=== PATIENT | female | born 1960 | race Caucasian/White ===

== ENCOUNTER 2021-05-24 05:07 | Inpatient (IN) | payer OTHER ==
[2021-05-24 08:32] LABS: VENOUS BASE EXCESS 2.5 mmol/L (-2-2); VENOUS O2 SATURATION 47.3 % (70-80); VENOUS PH 7.256 (7.310-7.410)
[2021-05-24 08:35] LABS: VENOUS PCO2 74.9 mmHg (38-52)
[2021-05-24 08:48] LABS: BASO % 0.4 % (0-2.0); EOS % 0.1 % (0-4.5); HEMOGLOBIN 11.4 GM/dL (10.7-15.3); LYMPH % 4.1 % (8-40); MCH 30.8 pg (25.7-33.7); MCHC 32.7 g/dl (32.0-36.0); MEAN CELL VOLUME 94.4 fl (80-96); MEAN PLT VOLUME 10.8 fl (7.5-11.1); MONO % 5.8 % (3.8-10.2); NEUT % 89.6 % (42.8-82.8); PLATELET COUNT 170 10^3/uL (134-434); RBC 3.71 M/mm3 (3.60-5.2); RDW 14.6 % (11.6-15.6); WHITE BLOOD COUNT 9.7 K/mm3 (4.0-10.0)
[2021-05-24 08:50] LABS: INR 1.07 (0.83-1.09)
[2021-05-24 08:53] LABS: ACTIVATED PTT 29.9 SECONDS (25.2-36.5)
[2021-05-24 08:57] LABS: CHLORIDE 102 mmol/L (98-107); SODIUM 138 mmol/L (136-145)
[2021-05-24 09:01] LABS: ANION GAP 3 MMOL/L (8-16); BLOOD UREA NITROGEN 16.5 mg/dL (7-18); CALCIUM 8.5 mg/dL (8.5-10.1); CO2 33 mmol/L (21-32); GLUCOSE,RANDOM 211 mg/dL (74-106); LIPASE 36 U/L (73-393); MAGNESIUM 1.9 mg/dL (1.8-2.4)
[2021-05-24 09:03] LABS: BILIRUBIN,DIRECT 0.1 mg/dL (0.0-0.2); SGPT/ALT 97 U/L (13-61)
[2021-05-24 09:04] LABS: CREATININE 0.4 mg/dL (0.55-1.3); PHOSPHOROUS 3.3 mg/dL (2.5-4.9); SGOT/AST 95 U/L (15-37)
[2021-05-24 09:05] LABS: TOT PROT 6.6 g/dl (6.4-8.2)
[2021-05-24 09:06] LABS: BILIRUBIN,TOTAL 0.7 mg/dL (0.2-1)
[2021-05-24 09:07] LABS: ALK PHOS 113 U/L (45-117); N-TERMINAL BNP 805.9 pg/ml (5-125)
[2021-05-24 09:11] LABS: LDH 436 U/L (84-246)
[2021-05-24] MEDS ORDERED: FUROSEMIDE 40 MG/4 ML INJECTABLE VIAL IVPUSH ONE (11:14)
[2021-05-24] MEDS ORDERED: FUROSEMIDE 40 MG/4 ML INJECTABLE VIAL ONE (11:56)
[2021-05-24] MEDS ORDERED: INSULIN SLIDING SCALE (NOVOLOG) 1 VIAL SQ SCH (16:30)
[2021-05-24] MEDS: INSULIN SLIDING SCALE (NOVOLOG) 1 VIAL SQ SCH ×2 (17:54→22:46)
[2021-05-24 23:24] VITALS: BMI 33.9
[2021-05-25] MEDS: INSULIN SLIDING SCALE (NOVOLOG) 1 VIAL SQ SCH ×4 (06:21→22:32)
[2021-05-25 07:28] LABS: BASO % 0.4 % (0-2.0); EOS % 1.4 % (0-4.5); HEMATOCRIT 32.5 % (32.4-45.2); HEMOGLOBIN 10.9 GM/dL (10.7-15.3); LYMPH % 13.4 % (8-40); MCH 30.7 pg (25.7-33.7); MCHC 33.4 g/dl (32.0-36.0); MEAN CELL VOLUME 91.8 fl (80-96); MEAN PLT VOLUME 9.7 fl (7.5-11.1); NEUT % 71.8 % (42.8-82.8); PLATELET COUNT 152 10^3/uL (134-434); RBC 3.54 M/mm3 (3.60-5.2); RDW 14.6 % (11.6-15.6)
[2021-05-25 07:44] LABS: CHLORIDE 105 mmol/L (98-107); SODIUM 142 mmol/L (136-145)
[2021-05-25 07:54] LABS: CALCIUM 8.6 mg/dL (8.5-10.1)
[2021-05-25 07:55] LABS: ALBUMIN 2.7 g/dl (3.4-5.0); ANION GAP 5 MMOL/L (8-16); CO2 32 mmol/L (21-32); GLUCOSE,RANDOM 154 mg/dL (74-106)
[2021-05-25 07:56] LABS: MAGNESIUM 1.9 mg/dL (1.8-2.4)
[2021-05-25 07:57] LABS: PHOSPHOROUS 2.7 mg/dL (2.5-4.9); SGPT/ALT 62 U/L (13-61)
[2021-05-25 07:59] LABS: ALK PHOS 87 U/L (45-117)
[2021-05-25 08:00] LABS: CREATININE 0.4 mg/dL (0.55-1.3)
[2021-05-25 08:01] LABS: BILIRUBIN,TOTAL 0.6 mg/dL (0.2-1)
[2021-05-25 08:02] LABS: SGOT/AST 33 U/L (15-37)
[2021-05-25 08:04] LABS: CHOLESTEROL 130 mg/dL (50-200); HDL CHOLESTEROL 50 mg/dL (40-60); TRIGLYCERIDES 55 mg/dL (0-150)
[2021-05-25 08:05] LABS: LDL CHOLESTEROL (ONLY SJRH) 64 mg/dL (5-100)
[2021-05-25] MEDS: ASPIRIN 81 MG CHEWABLE TABLETS PO SCH (09:02)
[2021-05-25] MEDS: LISINOPRIL 10 MG TABLET PO SCH (09:02)
[2021-05-25] MEDS ORDERED: REGADENOSON 0.4 MG/5 ML PRE-FILLED SYRINGE IVPUSH ONE ×2 (09:44→11:30)
[2021-05-25] MEDS ORDERED: FUROSEMIDE 40 MG/4 ML INJECTABLE VIAL IVPUSH SCH (10:00)
[2021-05-25] MEDS: ENOXAPARIN NA (PORCINE) 40 MG/0.4 ML DISP.SYRIN SQ SCH (12:29)
[2021-05-26 02:24] VITALS: TEMP 98.2
[2021-05-26] MEDS: INSULIN SLIDING SCALE (NOVOLOG) 1 VIAL SQ SCH (07:31)
[2021-05-26 08:18] LABS: BLOOD UREA NITROGEN 20.8 mg/dL (7-18); MAGNESIUM 2.1 mg/dL (1.8-2.4)
[2021-05-26 08:21] LABS: CREATININE 0.4 mg/dL (0.55-1.3)
[2021-05-26] MEDS: LISINOPRIL 10 MG TABLET PO SCH (10:03)
[2021-05-26] MEDS: ASPIRIN 81 MG CHEWABLE TABLETS PO SCH (10:03)
[2021-05-26] MEDS: ENOXAPARIN NA (PORCINE) 40 MG/0.4 ML DISP.SYRIN SQ SCH (11:06)
[2021-05-26 11:22] VITALS: BP 130/93; PULSE 87
== END 2021-05-26 13:44 | disposition short-term general hospital (02) | DRG 302 ==
LOC: JER 05:07 → JERBED 11:26 → J4W 21:51
PROVIDERS: ADMIT Internal Medicine
DX: I25.6 Silent myocardial ischemia (principal); J96.02 Acute respiratory failure with hypercapnia; E87.2 Acidosis; I25.10 Atherosclerotic heart disease of native coronary artery without angina pectoris; I11.0 Hypertensive heart disease with heart failure; I50.9 Heart failure, unspecified; E87.5 Hyperkalemia; E11.9 Type 2 diabetes mellitus without complications; Z85.038 Personal history of other malignant neoplasm of large intestine; E78.5 Hyperlipidemia, unspecified; E66.9 Obesity, unspecified; Z68.34 Body mass index [BMI] 34.0-34.9, adult; R74.01 Elevation of levels of liver transaminase levels
CPT/HCPCS: 36415; 71045-TC-FY; 78452-TC; 80048; 80053; 80061; 82248; 82550; 82803; 82962; 83036; 83605; 83615; 83690; 83735; 83880; 84100; 84443; 84484; 85025; 85379; 85610; 85730; 86140; 87804; 93005; 93010; 93017; 93306-TC; 93970-TC; 99285-25; A9502; C9803; J2785; U0003; U0005

== ENCOUNTER 2021-06-16 16:00 | Inpatient (IN) | payer OTHER ==
[2021-06-16] MEDS ORDERED: PANTOPRAZOLE SODIUM 40 MG VIAL IVPUSH ONE (18:21)
[2021-06-16] MEDS ORDERED: PANTOPRAZOLE SODIUM 40 MG VIAL ONE (18:54)
[2021-06-16 19:13] LABS: EOS % 1.7 % (0-4.5); HEMATOCRIT 33.5 % (32.4-45.2); MCH 29.2 pg (25.7-33.7); MCHC 32.7 g/dl (32.0-36.0); MEAN CELL VOLUME 89.3 fl (80-96); MEAN PLT VOLUME 10.3 fl (7.5-11.1); MONO % 7.3 % (3.8-10.2); PLATELET COUNT 246 10^3/uL (134-434); RBC 3.76 M/mm3 (3.60-5.2); RDW 14.2 % (11.6-15.6); WHITE BLOOD COUNT 8.8 K/mm3 (4.0-10.0)
[2021-06-16 19:21] LABS: CHLORIDE 104 mmol/L (98-107); SODIUM 139 mmol/L (136-145)
[2021-06-16 19:22] LABS: INR 1.07 (0.83-1.09); PROTHROMBIN TIME (PATIENT) 12.3 SEC (9.7-13.0)
[2021-06-16 19:24] LABS: ALBUMIN 3.4 g/dl (3.4-5.0); ANION GAP 8 MMOL/L (8-16); BLOOD UREA NITROGEN 48.8 mg/dL (7-18); CALCIUM 9.2 mg/dL (8.5-10.1); CO2 28 mmol/L (21-32); GLUCOSE,RANDOM 137 mg/dL (74-106)
[2021-06-16 19:25] LABS: ACTIVATED PTT 29.1 SECONDS (25.2-36.5)
[2021-06-16 19:27] LABS: CREATININE 0.5 mg/dL (0.55-1.3); SGOT/AST 20 U/L (15-37)
[2021-06-16 19:28] LABS: SGPT/ALT 27 U/L (13-61)
[2021-06-16 19:29] LABS: BILIRUBIN,TOTAL 0.4 mg/dL (0.2-1); TOT PROT 6.7 g/dl (6.4-8.2)
[2021-06-16 19:30] LABS: ALK PHOS 101 U/L (45-117)
[2021-06-16] MEDS ORDERED: SODIUM CHLORIDE 1,000 ML IV SCH (23:30)
[2021-06-17] MEDS ORDERED: SODIUM CHLORIDE 1,000 ML IV SCH ×2 (00:03→12:15)
[2021-06-17 09:03] LABS: HEMOGLOBIN 8.8 GM/dL (10.7-15.3); LYMPH % 23.2 % (8-40); MCH 29.1 pg (25.7-33.7); MCHC 32.6 g/dl (32.0-36.0); MEAN CELL VOLUME 89.4 fl (80-96); MEAN PLT VOLUME 10.7 fl (7.5-11.1); MONO % 7.5 % (3.8-10.2); NEUT % 65.9 % (42.8-82.8); PLATELET COUNT 191 10^3/uL (134-434); RBC 3.03 M/mm3 (3.60-5.2); RDW 14.1 % (11.6-15.6)
[2021-06-17 09:04] LABS: EOS % 2.4 % (0-4.5)
[2021-06-17 09:12] LABS: INR 1.11 (0.83-1.09); PROTHROMBIN TIME (PATIENT) 12.8 SEC (9.7-13.0)
[2021-06-17 09:14] LABS: ACTIVATED PTT 26.1 SECONDS (25.2-36.5)
[2021-06-17 09:27] LABS: BLOOD UREA NITROGEN 44.8 mg/dL (7-18); MAGNESIUM 1.6 mg/dL (1.8-2.4)
[2021-06-17 09:29] LABS: CREATININE 0.5 mg/dL (0.55-1.3)
[2021-06-17 09:30] LABS: PHOSPHOROUS 3.5 mg/dL (2.5-4.9)
[2021-06-17 09:31] LABS: BILIRUBIN,TOTAL 0.4 mg/dL (0.2-1); TOT PROT 5.9 g/dl (6.4-8.2)
[2021-06-17] MEDS ORDERED: LISINOPRIL 20 MG TABLET PO SCH (10:00)
[2021-06-17] MEDS ORDERED: PANTOPRAZOLE SODIUM 80 MG in SODIUM CHLORIDE 100 ML IVPB SCH (10:00)
[2021-06-17] MEDS ORDERED: CLOPIDOGREL BISULFATE 75 MG TABLET (FP) PO SCH (10:00)
[2021-06-17] MEDS ORDERED: PANTOPRAZOLE SODIUM 160 MG in SODIUM CHLORIDE 290 ML IVPB SCH (10:45)
[2021-06-17] MEDS ORDERED: LISINOPRIL 20 MG TABLET ONE (11:19)
[2021-06-17] MEDS ORDERED: MAGNESIUM SULF 50% (8.12 MEQ/2 ML-1 GM VIAL) IVPB ONE (12:21)
[2021-06-17] MEDS ORDERED: MAGNESIUM SULF 50% (8.12 MEQ/2 ML-1 GM VIAL) ONE (12:30)
[2021-06-17] MEDS ORDERED: MAGNESIUM 1GM/D5W - 1 GM/100 ML IVPB IVPB ONE (12:31)
[2021-06-17] MEDS ORDERED: ETOMIDATE 20 MG/10 ML AMPUL IVPUSH ONE (12:38)
[2021-06-17] MEDS: PANTOPRAZOLE SODIUM 160 MG in SODIUM CHLORIDE 290 ML IVPB SCH (12:41)
[2021-06-17] MEDS: DEXTROSE 5%-0.45% SALINE 1,000 ML IV SCH (16:08)
[2021-06-17 16:46] VITALS: BMI 31.1
[2021-06-17 17:39] LABS: EPI CELLS 3 /uL (0-25.1); HYALINE CASTS 0 /uL (0-3.1); PH,URINE 5.5 (5.0-8.0); URINE APPEARANCE CLEAR; URINE BACTERIA 14 /uL (0-1359); URINE BILIRUBIN NEGATIVE (NEGATIVE); URINE COLOR YELLOW; URINE GLUCOSE (UA) NEGATIVE (NEGATIVE); URINE KETONE NEGATIVE (NEGATIVE); URINE LEUK ESTERASE 1+ (NEGATIVE); URINE NITRITE NEGATIVE (NEGATIVE); URINE PROTEIN NEGATIVE (NEGATIVE); URINE RBC 1 /uL (0-23.9); URINE UROBILINOGEN 0.2 mg/dL (0.2-1.0); URINE WBC 15 /uL (0-25.8)
[2021-06-17] MEDS: INSULIN SLIDING SCALE (NOVOLOG) 1 VIAL SQ SCH (17:57)
[2021-06-17] MEDS: ATORVASTATIN CA 80 MG TABLET (FP) PO SCH (21:51)
[2021-06-18] MEDS: INSULIN SLIDING SCALE (NOVOLOG) 1 VIAL SQ SCH ×3 (06:05→16:47)
[2021-06-18 10:42] LABS: BASO % 0.9 % (0-2.0); EOS % 2.7 % (0-4.5); HEMATOCRIT 25.7 % (32.4-45.2); HEMOGLOBIN 8.4 GM/dL (10.7-15.3); LYMPH % 14.7 % (8-40); MCH 29.4 pg (25.7-33.7); MCHC 32.8 g/dl (32.0-36.0); MEAN CELL VOLUME 89.6 fl (80-96); MEAN PLT VOLUME 10.6 fl (7.5-11.1); MONO % 8.2 % (3.8-10.2); NEUT % 73.5 % (42.8-82.8); PLATELET COUNT 178 10^3/uL (134-434); RBC 2.87 M/mm3 (3.60-5.2); RDW 14.3 % (11.6-15.6); WHITE BLOOD COUNT 7.9 K/mm3 (4.0-10.0)
[2021-06-18] MEDS: PANTOPRAZOLE SODIUM 160 MG in SODIUM CHLORIDE 290 ML IVPB SCH (10:43)
[2021-06-18] MEDS: ASPIRIN 81 MG CHEWABLE TABLETS PO SCH (10:46)
[2021-06-18] MEDS: CLOPIDOGREL BISULFATE 75 MG TABLET (FP) PO SCH (10:46)
[2021-06-18] MEDS: DEXTROSE 5%-0.45% SALINE 1,000 ML IV SCH ×2 (10:46→16:47)
[2021-06-18 11:00] LABS: CHLORIDE 106 mmol/L (98-107); SODIUM 142 mmol/L (136-145)
[2021-06-18 11:04] LABS: CALCIUM 8.6 mg/dL (8.5-10.1)
[2021-06-18 11:05] LABS: ANION GAP 4 MMOL/L (8-16); CO2 32 mmol/L (21-32); GLUCOSE,RANDOM 173 mg/dL (74-106)
[2021-06-18 11:08] LABS: CREATININE 0.5 mg/dL (0.55-1.3)
[2021-06-18 11:13] LABS: BLOOD UREA NITROGEN 17.4 mg/dL (7-18)
[2021-06-18 13:22] LABS: HEMATOCRIT 24.9 % (32.4-45.2); MCH 28.9 pg (25.7-33.7); MCHC 32.3 g/dl (32.0-36.0); MEAN CELL VOLUME 89.6 fl (80-96); MEAN PLT VOLUME 10.7 fl (7.5-11.1); PLATELET COUNT 164 10^3/uL (134-434); RBC 2.77 M/mm3 (3.60-5.2); RDW 14.1 % (11.6-15.6); WHITE BLOOD COUNT 6.9 K/mm3 (4.0-10.0)
[2021-06-18] MEDS: ATORVASTATIN CA 80 MG TABLET (FP) PO SCH (21:23)
[2021-06-19] MEDS: PANTOPRAZOLE SODIUM 160 MG in SODIUM CHLORIDE 290 ML IVPB SCH ×3 (04:38→23:12)
[2021-06-19] MEDS: INSULIN SLIDING SCALE (NOVOLOG) 1 VIAL SQ SCH ×3 (06:11→18:22)
[2021-06-19] MEDS: ASPIRIN 81 MG CHEWABLE TABLETS PO SCH (10:49)
[2021-06-19] MEDS: CLOPIDOGREL BISULFATE 75 MG TABLET (FP) PO SCH (10:49)
[2021-06-19 11:33] LABS: BASO % 0.9 % (0-2.0); EOS % 2.7 % (0-4.5); HEMATOCRIT 25.5 % (32.4-45.2); HEMOGLOBIN 8.2 GM/dL (10.7-15.3); LYMPH % 22.7 % (8-40); MCHC 32.2 g/dl (32.0-36.0); MEAN CELL VOLUME 90.1 fl (80-96); MONO % 10.1 % (3.8-10.2); NEUT % 63.6 % (42.8-82.8); PLATELET COUNT 148 10^3/uL (134-434); RBC 2.83 M/mm3 (3.60-5.2); RDW 14.2 % (11.6-15.6); WHITE BLOOD COUNT 5.5 K/mm3 (4.0-10.0)
[2021-06-19 12:15] LABS: CALCIUM 8.9 mg/dL (8.5-10.1)
[2021-06-19 12:16] LABS: BLOOD UREA NITROGEN 13.8 mg/dL (7-18)
[2021-06-19 12:19] LABS: CREATININE 0.4 mg/dL (0.55-1.3)
[2021-06-19 12:20] LABS: BILIRUBIN,TOTAL 0.5 mg/dL (0.2-1); TOT PROT 5.8 g/dl (6.4-8.2)
[2021-06-19] MEDS: LISINOPRIL 10 MG TABLET PO SCH (14:04)
[2021-06-19] MEDS ORDERED: MAGNESIUM SULF 50% (8.12 MEQ/2 ML-1 GM VIAL) IVPB ONE (15:51)
[2021-06-19] MEDS ORDERED: MAGNESIUM 1GM/D5W 100ML - 100 ML IVPB IVPB ONE (17:45)
[2021-06-19] MEDS: DEXTROSE 5%-0.45% SALINE 1,000 ML IV SCH (17:57)
[2021-06-19] MEDS: ATORVASTATIN CA 80 MG TABLET (FP) PO SCH (21:40)
[2021-06-20] MEDS: DEXTROSE 5%-0.45% SALINE 1,000 ML IV SCH ×3 (00:26→18:39)
[2021-06-20] MEDS: INSULIN SLIDING SCALE (NOVOLOG) 1 VIAL SQ SCH ×3 (06:41→16:49)
[2021-06-20 10:34] LABS: EOS % 5.9 % (0-4.5); HEMATOCRIT 25.6 % (32.4-45.2); HEMOGLOBIN 8.2 GM/dL (10.7-15.3); LYMPH % 18.9 % (8-40); MCH 29.2 pg (25.7-33.7); MCHC 32.1 g/dl (32.0-36.0); MEAN CELL VOLUME 90.8 fl (80-96); MEAN PLT VOLUME 10.9 fl (7.5-11.1); MONO % 10.5 % (3.8-10.2); NEUT % 63.7 % (42.8-82.8); PLATELET COUNT 137 10^3/uL (134-434); RBC 2.82 M/mm3 (3.60-5.2); RDW 13.9 % (11.6-15.6); WHITE BLOOD COUNT 4.8 K/mm3 (4.0-10.0)
[2021-06-20] MEDS: LISINOPRIL 10 MG TABLET PO SCH (10:59)
[2021-06-20] MEDS: CLOPIDOGREL BISULFATE 75 MG TABLET (FP) PO SCH (10:59)
[2021-06-20] MEDS: ASPIRIN 81 MG CHEWABLE TABLETS PO SCH (11:00)
[2021-06-20 11:14] LABS: BLOOD UREA NITROGEN 9.3 mg/dL (7-18); CALCIUM 8.5 mg/dL (8.5-10.1); MAGNESIUM 1.7 mg/dL (1.8-2.4)
[2021-06-20 11:17] LABS: CREATININE 0.5 mg/dL (0.55-1.3); PHOSPHOROUS 2.8 mg/dL (2.5-4.9)
[2021-06-20] MEDS ORDERED: MAGNESIUM SULF 50% (8.12 MEQ/2 ML-1 GM VIAL) IVPB ONE (11:28)
[2021-06-20] MEDS: PANTOPRAZOLE SODIUM 160 MG in SODIUM CHLORIDE 290 ML IVPB SCH (18:51)
[2021-06-20] MEDS: ATORVASTATIN CA 80 MG TABLET (FP) PO SCH (21:32)
[2021-06-21] MEDS: INSULIN SLIDING SCALE (NOVOLOG) 1 VIAL SQ SCH ×3 (06:47→17:00)
[2021-06-21 09:46] LABS: BASO % 0.9 % (0-2.0); EOS % 4.7 % (0-4.5); HEMATOCRIT 24.3 % (32.4-45.2); HEMOGLOBIN 7.8 GM/dL (10.7-15.3); LYMPH % 18.2 % (8-40); MCH 29.4 pg (25.7-33.7); MCHC 32.2 g/dl (32.0-36.0); MEAN CELL VOLUME 91.3 fl (80-96); MEAN PLT VOLUME 11.5 fl (7.5-11.1); MONO % 8.8 % (3.8-10.2); NEUT % 67.4 % (42.8-82.8); PLATELET COUNT 125 10^3/uL (134-434); RBC 2.66 M/mm3 (3.60-5.2); RDW 14.6 % (11.6-15.6)
[2021-06-21 10:21] LABS: CALCIUM 8.4 mg/dL (8.5-10.1)
[2021-06-21 10:22] LABS: ALBUMIN 2.7 g/dl (3.4-5.0); BLOOD UREA NITROGEN 6.6 mg/dL (7-18); MAGNESIUM 1.8 mg/dL (1.8-2.4)
[2021-06-21 10:25] LABS: BILIRUBIN,TOTAL 0.6 mg/dL (0.2-1); CREATININE 0.5 mg/dL (0.55-1.3); TOT PROT 5.5 g/dl (6.4-8.2)
[2021-06-21] MEDS: LISINOPRIL 10 MG TABLET PO SCH (11:02)
[2021-06-21] MEDS: PANTOPRAZOLE 40 MG TABLET PO SCH (11:02)
[2021-06-21] MEDS: CLOPIDOGREL BISULFATE 75 MG TABLET (FP) PO SCH (11:02)
[2021-06-21] MEDS: ASPIRIN 81 MG CHEWABLE TABLETS PO SCH (11:02)
[2021-06-21] MEDS ORDERED: IRON SUCROSE INJECTION 200 MG in SODIUM CHLORIDE 90 ML IVPB ONE (14:04)
[2021-06-21] MEDS: SODIUM CHLORIDE 1,000 ML IV SCH (14:46)
[2021-06-21] MEDS: ATORVASTATIN CA 80 MG TABLET (FP) PO SCH (21:58)
[2021-06-21] MEDS ORDERED: ACETAMINOPHEN 325 MG TABLET (FP) PO ONE (22:27)
[2021-06-22] MEDS: CLOPIDOGREL BISULFATE 75 MG TABLET (FP) PO SCH (10:19)
[2021-06-22] MEDS: PANTOPRAZOLE 40 MG TABLET PO SCH (10:19)
[2021-06-22] MEDS: ASPIRIN 81 MG CHEWABLE TABLETS PO SCH (10:19)
[2021-06-22 11:52] LABS: BASO % 0.6 % (0-2.0); EOS % 3.6 % (0-4.5); HEMATOCRIT 25.9 % (32.4-45.2); HEMOGLOBIN 8.1 GM/dL (10.7-15.3); LYMPH % 12.4 % (8-40); MCH 28.5 pg (25.7-33.7); MCHC 31.3 g/dl (32.0-36.0); MEAN CELL VOLUME 91.3 fl (80-96); MEAN PLT VOLUME 11.4 fl (7.5-11.1); MONO % 9.8 % (3.8-10.2); NEUT % 73.6 % (42.8-82.8); PLATELET COUNT 134 10^3/uL (134-434); RBC 2.84 M/mm3 (3.60-5.2); RDW 14.4 % (11.6-15.6); WHITE BLOOD COUNT 5.8 K/mm3 (4.0-10.0)
[2021-06-22] MEDS: INSULIN SLIDING SCALE (NOVOLOG) 1 VIAL SQ SCH ×3 (12:14→17:03)
[2021-06-22] MEDS: SODIUM CHLORIDE 1,000 ML IV SCH (12:23)
[2021-06-22 12:29] LABS: ALBUMIN 2.8 g/dl (3.4-5.0); CALCIUM 8.5 mg/dL (8.5-10.1)
[2021-06-22 12:32] LABS: CREATININE 0.4 mg/dL (0.55-1.3); MAGNESIUM 1.6 mg/dL (1.8-2.4); PHOSPHOROUS 2.8 mg/dL (2.5-4.9)
[2021-06-22 12:33] LABS: BILIRUBIN,TOTAL 0.3 mg/dL (0.2-1); TOT PROT 5.8 g/dl (6.4-8.2)
[2021-06-22] MEDS ORDERED: MAGNESIUM CL 64 MG TABLET.SA PO ONE (12:43)
[2021-06-22] MEDS: ACETAMINOPHEN 325 MG TABLET (FP) PO PRN ×2 (15:18→21:20)
[2021-06-22] MEDS: ATORVASTATIN CA 80 MG TABLET (FP) PO SCH (21:20)
[2021-06-22 21:47] LABS: HEMATOCRIT 26.2 % (32.4-45.2); HEMOGLOBIN 8.4 GM/dL (10.7-15.3); MCH 29.2 pg (25.7-33.7); MEAN CELL VOLUME 91.1 fl (80-96); PLATELET COUNT 139 10^3/uL (134-434); RBC 2.87 M/mm3 (3.60-5.2); RDW 14.8 % (11.6-15.6); WHITE BLOOD COUNT 5.1 K/mm3 (4.0-10.0)
[2021-06-22 22:06] LABS: BLOOD UREA NITROGEN 8.6 mg/dL (7-18); CALCIUM 8.5 mg/dL (8.5-10.1)
[2021-06-22 22:07] LABS: ALBUMIN 2.8 g/dl (3.4-5.0); MAGNESIUM 1.6 mg/dL (1.8-2.4)
[2021-06-22 22:10] LABS: CREATININE 0.6 mg/dL (0.55-1.3)
[2021-06-22 22:11] LABS: BILIRUBIN,TOTAL 0.3 mg/dL (0.2-1); TOT PROT 5.8 g/dl (6.4-8.2)
[2021-06-23] MEDS: SODIUM CHLORIDE 1,000 ML IV SCH (04:41)
[2021-06-23] MEDS: INSULIN SLIDING SCALE (NOVOLOG) 1 VIAL SQ SCH (06:44)
[2021-06-23 07:11] VITALS: TEMP 98.2
[2021-06-23] MEDS ORDERED: MAGNESIUM OXIDE 400 MG TABLET (FP) PO ONE (07:17)
[2021-06-23] MEDS: ASPIRIN 81 MG CHEWABLE TABLETS PO SCH (09:11)
[2021-06-23] MEDS: CLOPIDOGREL BISULFATE 75 MG TABLET (FP) PO SCH (09:11)
[2021-06-23] MEDS: PANTOPRAZOLE 40 MG TABLET PO SCH (09:11)
[2021-06-23] MEDS ORDERED: LISINOPRIL 10 MG TABLET PO SCH (10:00)
[2021-06-23 12:46] VITALS: BP 136/65; PULSE 82
== END 2021-06-23 10:54 | disposition home or self-care (01) | DRG 378 ==
LOC: JER 16:00 → JERBED 18:21 → J6WEST-2 06-17 14:59
PROVIDERS: ADMIT Internal Medicine; ATTEND Internal Medicine
PROC: 0W3P8ZZ Control Bleeding in Gastrointestinal Tract, Via Natural or Artificial Opening Endoscopic (ICD-10-PCS; principal; 2021-06-17 13:00)
DX: K25.4 Chronic or unspecified gastric ulcer with hemorrhage (principal); I50.32 Chronic diastolic (congestive) heart failure; N17.9 Acute kidney failure, unspecified; I24.8 Other forms of acute ischemic heart disease; D62 Acute posthemorrhagic anemia; K92.1 Melena; E11.9 Type 2 diabetes mellitus without complications; I25.2 Old myocardial infarction; I11.0 Hypertensive heart disease with heart failure; Z79.84 Long term (current) use of oral hypoglycemic drugs; E86.0 Dehydration; I25.10 Atherosclerotic heart disease of native coronary artery without angina pectoris; E86.1 Hypovolemia; E27.9 Disorder of adrenal gland, unspecified; E11.65 Type 2 diabetes mellitus with hyperglycemia; R09.02 Hypoxemia; W19.XXXA Unspecified fall, initial encounter; Y93.89 Activity, other specified; Y92.231 Patient bathroom in hospital as the place of occurrence of the external cause; Y99.8 Other external cause status; Z85.038 Personal history of other malignant neoplasm of large intestine; R42 Dizziness and giddiness; I95.1 Orthostatic hypotension; E27.8 Other specified disorders of adrenal gland
CPT/HCPCS: 36415; 70450-TC; 70480-TC; 71046-TC-FY; 74176-TC; 76856-TC; 80048; 80053; 81003; 82272; 82550; 82728; 82962; 83036; 83540; 83550; 83735; 84100; 84484; 85025; 85027; 85610; 85730; 86850; 86900; 86901; 87804; 93005; 93010; 99285-25; C9803; J1756; U0003; U0005

== ENCOUNTER 2021-09-26 14:11 | Inpatient (IN) | payer OTHER ==
[2021-09-26 17:15] LABS: BASO % 0.7 % (0-2.0); EOS % 1.2 % (0-4.5); HEMOGLOBIN 9.6 GM/dL (10.7-15.3); LYMPH % 13.2 % (8-40); MCHC 30.9 g/dl (32.0-36.0); MEAN CELL VOLUME 74.4 fl (80-96); MEAN PLT VOLUME 9.9 fl (7.5-11.1); MONO % 6.9 % (3.8-10.2); PLATELET COUNT 194 10^3/uL (134-434); RBC 4.17 M/mm3 (3.60-5.2); RDW 24.2 % (11.6-15.6); WHITE BLOOD COUNT 5.7 K/mm3 (4.0-10.0)
[2021-09-26 17:23] LABS: INR 1.03 (0.83-1.09); PROTHROMBIN TIME (PATIENT) 11.8 SEC (9.7-13.0)
[2021-09-26 17:25] LABS: ACTIVATED PTT 32.1 SECONDS (25.2-36.5)
[2021-09-26 17:32] LABS: BLOOD UREA NITROGEN 14.9 mg/dL (7-18)
[2021-09-26 17:33] LABS: ALBUMIN 3.4 g/dl (3.4-5.0)
[2021-09-26 17:36] LABS: CREATININE 0.6 mg/dL (0.55-1.3)
[2021-09-26 17:37] LABS: BILIRUBIN,TOTAL 0.3 mg/dL (0.2-1); TOT PROT 7.5 g/dl (6.4-8.2)
[2021-09-26 18:04] LABS: ANISOCYTOSIS 2+; MACROCYTOSIS 0
[2021-09-26 21:17] LABS: URINE APPEARANCE CLEAR; URINE BILIRUBIN NEGATIVE (NEGATIVE); URINE COLOR YELLOW; URINE GLUCOSE (UA) NEGATIVE (NEGATIVE); URINE KETONE NEGATIVE (NEGATIVE); URINE LEUK ESTERASE NEGATIVE (NEGATIVE); URINE NITRITE NEGATIVE (NEGATIVE); URINE PROTEIN NEGATIVE (NEGATIVE); URINE UROBILINOGEN 0.2 mg/dL (0.2-1.0)
[2021-09-26] MEDS: INSULIN SLIDING SCALE (NOVOLOG) 1 VIAL SQ SCH (22:25)
[2021-09-27 01:22] VITALS: BMI 29.9
[2021-09-27] MEDS: INSULIN SLIDING SCALE (NOVOLOG) 1 VIAL SQ SCH ×4 (06:36→21:53)
[2021-09-27 06:38] LABS: HEMATOCRIT 28.1 % (32.4-45.2); HEMOGLOBIN 8.5 GM/dL (10.7-15.3); MCH 22.7 pg (25.7-33.7); MCHC 30.3 g/dl (32.0-36.0); MEAN CELL VOLUME 74.8 fl (80-96); MEAN PLT VOLUME 9.9 fl (7.5-11.1); PLATELET COUNT 184 10^3/uL (134-434); RBC 3.76 M/mm3 (3.60-5.2); RDW 24.3 % (11.6-15.6); WHITE BLOOD COUNT 4.7 K/mm3 (4.0-10.0)
[2021-09-27 06:59] LABS: BLOOD UREA NITROGEN 13.5 mg/dL (7-18); CALCIUM 8.7 mg/dL (8.5-10.1)
[2021-09-27 07:01] LABS: MAGNESIUM 1.3 mg/dL (1.8-2.4)
[2021-09-27 07:04] LABS: CREATININE 0.5 mg/dL (0.55-1.3); PHOSPHOROUS 3.2 mg/dL (2.5-4.9)
[2021-09-27] MEDS ORDERED: MAGNESIUM 2GM/50ML STERILE WATER IVPB IVPB ONE (08:20)
[2021-09-27] MEDS: ENOXAPARIN NA (PORCINE) 40 MG/0.4 ML DISP.SYRIN SQ SCH (09:48)
[2021-09-27] MEDS ORDERED: MAGNESIUM 1GM/D5W - 1 GM/100 ML IVPB IVPB ONE (10:30)
[2021-09-27] MEDS: CLOPIDOGREL BISULFATE 75 MG TABLET (FP) PO SCH (17:41)
[2021-09-27] MEDS ORDERED: INSULIN (NOVOLOG) ASPART 100 UNITS/ML 10ML VIAL ONE (21:44)
[2021-09-27] MEDS: ATORVASTATIN CA 80 MG TABLET (FP) PO SCH (21:54)
[2021-09-28] MEDS: INSULIN SLIDING SCALE (NOVOLOG) 1 VIAL SQ SCH ×4 (06:32→22:00)
[2021-09-28 07:22] LABS: BASO % 0.7 % (0-2.0); EOS % 2.7 % (0-4.5); HEMATOCRIT 32.2 % (32.4-45.2); HEMOGLOBIN 9.8 GM/dL (10.7-15.3); LYMPH % 21.7 % (8-40); MCH 22.7 pg (25.7-33.7); MCHC 30.4 g/dl (32.0-36.0); MEAN CELL VOLUME 74.7 fl (80-96); MEAN PLT VOLUME 9.7 fl (7.5-11.1); MONO % 8.6 % (3.8-10.2); NEUT % 66.3 % (42.8-82.8); PLATELET COUNT 226 10^3/uL (134-434); RBC 4.31 M/mm3 (3.60-5.2); RDW 24.9 % (11.6-15.6); WHITE BLOOD COUNT 5.8 K/mm3 (4.0-10.0)
[2021-09-28 07:56] LABS: ALBUMIN 3.3 g/dl (3.4-5.0); BLOOD UREA NITROGEN 12.4 mg/dL (7-18)
[2021-09-28 07:57] LABS: MAGNESIUM 1.8 mg/dL (1.8-2.4)
[2021-09-28 07:59] LABS: CREATININE 0.5 mg/dL (0.55-1.3)
[2021-09-28 08:01] LABS: BILIRUBIN,TOTAL 0.6 mg/dL (0.2-1); TOT PROT 7.2 g/dl (6.4-8.2)
[2021-09-28] MEDS: LISINOPRIL 10 MG TABLET PO SCH (09:28)
[2021-09-28] MEDS: CLOPIDOGREL BISULFATE 75 MG TABLET (FP) PO SCH (09:28)
[2021-09-28] MEDS: ASPIRIN 81 MG CHEWABLE TABLETS PO SCH (09:28)
[2021-09-28] MEDS: ENOXAPARIN NA (PORCINE) 40 MG/0.4 ML DISP.SYRIN SQ SCH (09:28)
[2021-09-28] MEDS: ATORVASTATIN CA 80 MG TABLET (FP) PO SCH (22:00)
[2021-09-29] MEDS: INSULIN SLIDING SCALE (NOVOLOG) 1 VIAL SQ SCH ×2 (06:01→13:09)
[2021-09-29 07:38] LABS: BASO % 0.7 % (0-2.0); EOS % 3.7 % (0-4.5); HEMATOCRIT 30.7 % (32.4-45.2); HEMOGLOBIN 9.4 GM/dL (10.7-15.3); LYMPH % 22.5 % (8-40); MCHC 30.5 g/dl (32.0-36.0); MEAN CELL VOLUME 75.3 fl (80-96); MEAN PLT VOLUME 9.6 fl (7.5-11.1); MONO % 9.3 % (3.8-10.2); NEUT % 63.8 % (42.8-82.8); PLATELET COUNT 213 10^3/uL (134-434); RBC 4.07 M/mm3 (3.60-5.2); RDW 24.6 % (11.6-15.6); WHITE BLOOD COUNT 5.3 K/mm3 (4.0-10.0)
[2021-09-29 08:06] LABS: CALCIUM 8.7 mg/dL (8.5-10.1)
[2021-09-29 08:07] LABS: BLOOD UREA NITROGEN 11.6 mg/dL (7-18); MAGNESIUM 1.7 mg/dL (1.8-2.4)
[2021-09-29 08:10] LABS: BILIRUBIN,TOTAL 0.5 mg/dL (0.2-1); CREATININE 0.5 mg/dL (0.55-1.3); TOT PROT 6.8 g/dl (6.4-8.2)
[2021-09-29] MEDS ORDERED: MAGNESIUM OXIDE 400 MG TABLET (FP) PO ONE (08:38)
[2021-09-29] MEDS: ENOXAPARIN NA (PORCINE) 40 MG/0.4 ML DISP.SYRIN SQ SCH (10:43)
[2021-09-29] MEDS: LISINOPRIL 10 MG TABLET PO SCH (10:44)
[2021-09-29] MEDS: CLOPIDOGREL BISULFATE 75 MG TABLET (FP) PO SCH (10:44)
[2021-09-29] MEDS: ASPIRIN 81 MG CHEWABLE TABLETS PO SCH (10:44)
[2021-09-29 11:12] VITALS: PULSE 79
[2021-09-29 14:09] VITALS: BP 116/61; TEMP 98.6
== END 2021-09-29 16:46 | disposition home or self-care (01) | DRG 312 ==
LOC: JER 14:11 → JERBED 17:30 → J4W 09-27 01:04
PROVIDERS: ADMIT Internal Medicine; ATTEND Nurse Practitioner Family
DX: R55 Syncope and collapse (principal); I50.32 Chronic diastolic (congestive) heart failure; L97.919 Non-pressure chronic ulcer of unspecified part of right lower leg with unspecified severity; E11.40 Type 2 diabetes mellitus with diabetic neuropathy, unspecified; I11.0 Hypertensive heart disease with heart failure; E11.65 Type 2 diabetes mellitus with hyperglycemia; E11.51 Type 2 diabetes mellitus with diabetic peripheral angiopathy without gangrene; D64.9 Anemia, unspecified; E66.9 Obesity, unspecified; E78.5 Hyperlipidemia, unspecified; I25.10 Atherosclerotic heart disease of native coronary artery without angina pectoris; R19.7 Diarrhea, unspecified; R05.3 Chronic cough; E86.0 Dehydration; I87.2 Venous insufficiency (chronic) (peripheral); F41.9 Anxiety disorder, unspecified; I95.9 Hypotension, unspecified; Z68.30 Body mass index [BMI] 30.0-30.9, adult
CPT/HCPCS: 36415; 70450-TC; 71045-TC-FY; 80048; 80053; 80061; 81003; 82272; 82550; 82962; 82977; 83036; 83540; 83550; 83735; 83993; 84100; 84484; 85025; 85027; 85610; 85730; 87086; 93005; 93010; 93306-TC; 93880-TC; 97116-GP; 97161-GP; 99285-25; C9803-CS; U0003; U0005

== ENCOUNTER 2021-10-21 11:24 | Inpatient (IN) | payer OTHER ==
[2021-10-21] MEDS ORDERED: CEFEPIME HCL/D5W 2 GM/50 ML BAG IVPB ONE (12:04)
[2021-10-21] MEDS ORDERED: VANCOMYCIN 1 GM in D5W (PRE-DOCKED) 1,000 MG/250 ML IVPB ONE (12:25)
[2021-10-21] MEDS ORDERED: VANCOMYCIN 1 GRAM (PRE-DOCKED) 1,000 MG/250 ML BAG IVPB ONE (12:41)
[2021-10-21] MEDS ORDERED: CEFEPIME 2 GM/100 ML BAG IVPB ONE (12:42)
[2021-10-21 12:51] LABS: BASO % 0.8 % (0-2.0); EOS % 1.3 % (0-4.5); HEMATOCRIT 31.4 % (32.4-45.2); HEMOGLOBIN 9.5 GM/dL (10.7-15.3); LYMPH % 11.2 % (8-40); MCH 23.6 pg (25.7-33.7); MCHC 30.4 g/dl (32.0-36.0); MEAN CELL VOLUME 77.5 fl (80-96); MEAN PLT VOLUME 8.7 fl (7.5-11.1); MONO % 6.6 % (3.8-10.2); NEUT % 80.1 % (42.8-82.8); PLATELET COUNT 300 10^3/uL (134-434); RBC 4.05 M/mm3 (3.60-5.2)
[2021-10-21 13:12] LABS: BLOOD UREA NITROGEN 9.5 mg/dL (7-18); CALCIUM 9.3 mg/dL (8.5-10.1)
[2021-10-21 13:16] LABS: CREATININE 0.6 mg/dL (0.55-1.3)
[2021-10-21 13:17] LABS: BILIRUBIN,TOTAL 0.4 mg/dL (0.2-1); TOT PROT 7.3 g/dl (6.4-8.2)
[2021-10-21 14:33] LABS: ANISOCYTOSIS 1+; MACROCYTOSIS 0; PLATELET ESTIMATE NORMAL
[2021-10-21] MEDS ORDERED: ACETAMINOPHEN 325 MG TABLET (FP) PO PRN (15:22)
[2021-10-21] MEDS: SODIUM CHLORIDE 1,000 ML IV SCH (16:05)
[2021-10-21] MEDS ORDERED: NITROGLYCERIN SUBLINGUAL 1/150 0.4 MG TAB SL PRN (16:55)
[2021-10-21] MEDS ORDERED: VANCOMYCIN/WATER 1,250 MG/250 ML BAG IVPB SCH (17:00)
[2021-10-21] MEDS ORDERED: CLOPIDOGREL BISULFATE 75 MG TABLET (FP) ONE (17:34)
[2021-10-21 17:37] LABS: PHOSPHOROUS 3.4 mg/dL (2.5-4.9)
[2021-10-21 17:39] LABS: CHOLESTEROL 104 mg/dL (50-200); TRIGLYCERIDES 90 mg/dL (0-150)
[2021-10-21 17:40] LABS: LDL CHOLESTEROL (ONLY SJRH) 61 mg/dL (5-100)
[2021-10-21 17:42] LABS: HDL CHOLESTEROL 28 mg/dL (40-60)
[2021-10-21] MEDS: CLOPIDOGREL BISULFATE 75 MG TABLET (FP) PO SCH (17:42)
[2021-10-21] MEDS: INSULIN SLIDING SCALE (NOVOLOG) 1 VIAL SQ SCH ×2 (17:45→21:27)
[2021-10-21 18:57] LABS: URINE APPEARANCE CLEAR; URINE BILIRUBIN NEGATIVE (NEGATIVE); URINE COLOR YELLOW; URINE GLUCOSE (UA) 3+ (NEGATIVE); URINE KETONE NEGATIVE (NEGATIVE); URINE LEUK ESTERASE NEGATIVE (NEGATIVE); URINE NITRITE NEGATIVE (NEGATIVE); URINE PROTEIN NEGATIVE (NEGATIVE); URINE UROBILINOGEN 0.2 mg/dL (0.2-1.0)
[2021-10-21] MEDS ORDERED: PIPERACILLIN/TAZOBACTAM 2.25 GM VIAL IVPB ONE (21:14)
[2021-10-21] MEDS ORDERED: DEXTROSE 5%-WATER - 50 ML IVPB ONE (21:14)
[2021-10-21] MEDS: HEPARIN NA (PORCINE) 5,000 UNITS/ML 1ML VIAL SQ SCH (21:27)
[2021-10-21] MEDS: PIPERACILLIN/TAZOB 2.25 GM 2.25 GM in DEXTROSE 5%-WATER - 50 ML IVPB SCH (21:27)
[2021-10-21] MEDS: ATORVASTATIN CA 80 MG TABLET (FP) PO SCH (21:27)
[2021-10-21] MEDS ORDERED: PIPERACILLIN/TAZOB 2.25 GM 2.25 GM in DEXTROSE 5%-WATER - 50 ML IVPB SCH (22:00)
[2021-10-21] MEDS: VANCOMYCIN/WATER 1250 MG 1,250 MG/250 ML BAG IVPB SCH (22:45)
[2021-10-22] MEDS ORDERED: VANCOMYCIN/WATER 1,250 MG/250 ML BAG IVPB SCH (02:00)
[2021-10-22] MEDS ORDERED: DEXTROSE 5%-WATER - 50 ML IVPB ONE ×3 (05:34→20:59)
[2021-10-22] MEDS ORDERED: PIPERACILLIN/TAZOBACTAM 2.25 GM VIAL IVPB ONE ×2 (05:34→13:09)
[2021-10-22] MEDS: HEPARIN NA (PORCINE) 5,000 UNITS/ML 1ML VIAL SQ SCH ×3 (06:03→22:04)
[2021-10-22] MEDS: PIPERACILLIN/TAZOB 2.25 GM 2.25 GM in DEXTROSE 5%-WATER - 50 ML IVPB SCH ×2 (06:04→13:11)
[2021-10-22] MEDS: INSULIN SLIDING SCALE (NOVOLOG) 1 VIAL SQ SCH ×4 (06:07→22:17)
[2021-10-22 09:06] LABS: BASO % 0.8 % (0-2.0); EOS % 1.5 % (0-4.5); HEMATOCRIT 30.9 % (32.4-45.2); HEMOGLOBIN 9.4 GM/dL (10.7-15.3); LYMPH % 11.6 % (8-40); MCH 23.6 pg (25.7-33.7); MCHC 30.5 g/dl (32.0-36.0); MEAN CELL VOLUME 77.6 fl (80-96); MONO % 6.8 % (3.8-10.2); NEUT % 79.3 % (42.8-82.8); PLATELET COUNT 304 10^3/uL (134-434); RBC 3.99 M/mm3 (3.60-5.2); RDW 21.4 % (11.6-15.6); WHITE BLOOD COUNT 7.8 K/mm3 (4.0-10.0)
[2021-10-22 09:20] LABS: INR 1.09 (0.83-1.09); PROTHROMBIN TIME (PATIENT) 12.5 SEC (9.7-13.0)
[2021-10-22 09:22] LABS: ACTIVATED PTT 30.4 SECONDS (25.2-36.5)
[2021-10-22] MEDS: FUROSEMIDE 20 MG TABLET (FP) PO SCH (09:23)
[2021-10-22] MEDS: CLOPIDOGREL BISULFATE 75 MG TABLET (FP) PO SCH (09:23)
[2021-10-22] MEDS: LISINOPRIL 20 MG TABLET PO SCH (09:23)
[2021-10-22] MEDS: ASPIRIN 81 MG CHEWABLE TABLETS PO SCH (09:26)
[2021-10-22 09:33] LABS: CALCIUM 9.2 mg/dL (8.5-10.1)
[2021-10-22 09:34] LABS: ALBUMIN 2.7 g/dl (3.4-5.0); BLOOD UREA NITROGEN 11.4 mg/dL (7-18)
[2021-10-22] MEDS: INSULIN (LEVEMIR) 100 UNITS/ML UNITS SQ SCH ×2 (09:34→22:17)
[2021-10-22 09:37] LABS: CREATININE 0.5 mg/dL (0.55-1.3); PHOSPHOROUS 2.8 mg/dL (2.5-4.9)
[2021-10-22 09:38] LABS: TOT PROT 6.8 g/dl (6.4-8.2)
[2021-10-22 09:39] LABS: BILIRUBIN,TOTAL 0.5 mg/dL (0.2-1)
[2021-10-22] MEDS: VANCOMYCIN/WATER 1250 MG 1,250 MG/250 ML BAG IVPB SCH (10:00)
[2021-10-22] MEDS ORDERED: PIPERACILLIN/TAZOBACTAM 3.375 GM VIAL IVPB ONE (20:59)
[2021-10-22] MEDS: PIPERACILLIN/TAZOB 3.375 GM 3.375 GM in DEXTROSE 5%-WATER - 50 ML IVPB SCH (22:04)
[2021-10-22] MEDS: SODIUM CHLORIDE 1,000 ML IV SCH (22:04)
[2021-10-22] MEDS: ATORVASTATIN CA 80 MG TABLET (FP) PO SCH (22:04)
[2021-10-23] MEDS ORDERED: PIPERACILLIN/TAZOBACTAM 3.375 GM VIAL IVPB ONE ×4 (01:53→20:57)
[2021-10-23] MEDS ORDERED: DEXTROSE 5%-WATER - 50 ML IVPB ONE ×4 (01:53→20:57)
[2021-10-23] MEDS: PIPERACILLIN/TAZOB 3.375 GM 3.375 GM in DEXTROSE 5%-WATER - 50 ML IVPB SCH ×4 (02:02→21:14)
[2021-10-23] MEDS: HEPARIN NA (PORCINE) 5,000 UNITS/ML 1ML VIAL SQ SCH ×3 (05:48→21:13)
[2021-10-23] MEDS: INSULIN SLIDING SCALE (NOVOLOG) 1 VIAL SQ SCH ×4 (06:03→21:13)
[2021-10-23] MEDS: CLOPIDOGREL BISULFATE 75 MG TABLET (FP) PO SCH (09:07)
[2021-10-23] MEDS: LISINOPRIL 20 MG TABLET PO SCH (09:07)
[2021-10-23] MEDS: ASPIRIN 81 MG CHEWABLE TABLETS PO SCH (09:07)
[2021-10-23] MEDS: INSULIN (LEVEMIR) 100 UNITS/ML UNITS SQ SCH ×2 (09:07→21:13)
[2021-10-23] MEDS: FUROSEMIDE 20 MG TABLET (FP) PO SCH (09:45)
[2021-10-23 10:34] LABS: ALBUMIN 2.7 g/dl (3.4-5.0); BLOOD UREA NITROGEN 11.3 mg/dL (7-18); CALCIUM 9.4 mg/dL (8.5-10.1)
[2021-10-23 10:37] LABS: CREATININE 0.5 mg/dL (0.55-1.3); PHOSPHOROUS 3.9 mg/dL (2.5-4.9)
[2021-10-23 10:39] LABS: BILIRUBIN,TOTAL 0.5 mg/dL (0.2-1)
[2021-10-23 10:50] LABS: BASO % 0.6 % (0-2.0); EOS % 1.6 % (0-4.5); HEMATOCRIT 31.8 % (32.4-45.2); HEMOGLOBIN 9.9 GM/dL (10.7-15.3); LYMPH % 11.7 % (8-40); MEAN CELL VOLUME 77.3 fl (80-96); MONO % 8.2 % (3.8-10.2); NEUT % 77.9 % (42.8-82.8); PLATELET COUNT 281 10^3/uL (134-434); RBC 4.12 M/mm3 (3.60-5.2); RDW 21.4 % (11.6-15.6); WHITE BLOOD COUNT 8.7 K/mm3 (4.0-10.0)
[2021-10-23 13:08] VITALS: BMI 28.7
[2021-10-23] MEDS: ATORVASTATIN CA 80 MG TABLET (FP) PO SCH (21:13)
[2021-10-23] MEDS: SODIUM HYPOCHLORITE 0.25%- 473 ML BULK BOTTLE TP SCH (23:36)
[2021-10-24] MEDS ORDERED: PIPERACILLIN/TAZOBACTAM 3.375 GM VIAL IVPB ONE ×4 (00:59→20:44)
[2021-10-24] MEDS ORDERED: DEXTROSE 5%-WATER - 50 ML IVPB ONE ×4 (00:59→20:44)
[2021-10-24] MEDS: PIPERACILLIN/TAZOB 3.375 GM 3.375 GM in DEXTROSE 5%-WATER - 50 ML IVPB SCH ×4 (02:06→20:59)
[2021-10-24] MEDS: HEPARIN NA (PORCINE) 5,000 UNITS/ML 1ML VIAL SQ SCH ×3 (06:13→20:59)
[2021-10-24] MEDS: INSULIN SLIDING SCALE (NOVOLOG) 1 VIAL SQ SCH ×4 (06:13→21:02)
[2021-10-24] MEDS: LISINOPRIL 20 MG TABLET PO SCH (09:02)
[2021-10-24] MEDS: CLOPIDOGREL BISULFATE 75 MG TABLET (FP) PO SCH (09:02)
[2021-10-24] MEDS: ASPIRIN 81 MG CHEWABLE TABLETS PO SCH (09:02)
[2021-10-24] MEDS: FUROSEMIDE 20 MG TABLET (FP) PO SCH (09:02)
[2021-10-24 09:11] LABS: BASO % 0.6 % (0-2.0); EOS % 1.8 % (0-4.5); HEMATOCRIT 31.4 % (32.4-45.2); HEMOGLOBIN 9.9 GM/dL (10.7-15.3); LYMPH % 14.8 % (8-40); MCH 24.2 pg (25.7-33.7); MCHC 31.4 g/dl (32.0-36.0); MEAN CELL VOLUME 77.1 fl (80-96); MEAN PLT VOLUME 8.5 fl (7.5-11.1); MONO % 6.8 % (3.8-10.2); PLATELET COUNT 350 10^3/uL (134-434); RBC 4.07 M/mm3 (3.60-5.2); RDW 21.5 % (11.6-15.6); WHITE BLOOD COUNT 8.2 K/mm3 (4.0-10.0)
[2021-10-24 10:21] LABS: CALCIUM 9.3 mg/dL (8.5-10.1)
[2021-10-24 10:22] LABS: ALBUMIN 2.9 g/dl (3.4-5.0); BLOOD UREA NITROGEN 16.2 mg/dL (7-18)
[2021-10-24 10:26] LABS: BILIRUBIN,TOTAL 0.4 mg/dL (0.2-1); TOT PROT 7.3 g/dl (6.4-8.2)
[2021-10-24 10:53] LABS: CREATININE 0.6 mg/dL (0.55-1.3)
[2021-10-24] MEDS: INSULIN (LEVEMIR) 100 UNITS/ML UNITS SQ SCH (11:32)
[2021-10-24] MEDS ORDERED: INSULIN (LEVEMIR) 100 UNITS/ML UNITS SQ SCH ×2 (13:38→22:00)
[2021-10-24] MEDS: SODIUM HYPOCHLORITE 0.25%- 473 ML BULK BOTTLE TP SCH (14:39)
[2021-10-24] MEDS: Insulin (LOG) Aspart 100 UNITS/ML VIAL SQ SCH (16:45)
[2021-10-24] MEDS ORDERED: INSULIN (NOVOLOG) ASPART 100 UNITS/ML 10ML VIAL ONE ×2 (19:45→20:45)
[2021-10-24] MEDS ORDERED: INSULIN (LEVEMIR) 100 UNITS/ML UNITS SQ ONE ×2 (19:45→20:45)
[2021-10-24] MEDS: ATORVASTATIN CA 80 MG TABLET (FP) PO SCH (20:59)
[2021-10-25] MEDS ORDERED: PIPERACILLIN/TAZOBACTAM 3.375 GM VIAL IVPB ONE ×4 (02:03→21:16)
[2021-10-25] MEDS ORDERED: DEXTROSE 5%-WATER - 50 ML IVPB ONE ×4 (02:03→21:17)
[2021-10-25] MEDS: PIPERACILLIN/TAZOB 3.375 GM 3.375 GM in DEXTROSE 5%-WATER - 50 ML IVPB SCH ×4 (02:06→21:42)
[2021-10-25] MEDS: HEPARIN NA (PORCINE) 5,000 UNITS/ML 1ML VIAL SQ SCH ×3 (06:13→21:41)
[2021-10-25] MEDS: INSULIN (LEVEMIR) 100 UNITS/ML UNITS SQ SCH (06:13)
[2021-10-25] MEDS: Insulin (LOG) Aspart 100 UNITS/ML VIAL SQ SCH ×3 (06:14→16:44)
[2021-10-25] MEDS: INSULIN SLIDING SCALE (NOVOLOG) 1 VIAL SQ SCH ×4 (06:14→21:41)
[2021-10-25 08:57] LABS: BASO % 0.9 % (0-2.0); EOS % 2.5 % (0-4.5); HEMATOCRIT 31.7 % (32.4-45.2); HEMOGLOBIN 9.8 GM/dL (10.7-15.3); LYMPH % 19.6 % (8-40); MCH 23.9 pg (25.7-33.7); MCHC 30.9 g/dl (32.0-36.0); MEAN CELL VOLUME 77.4 fl (80-96); MEAN PLT VOLUME 8.5 fl (7.5-11.1); MONO % 7.8 % (3.8-10.2); NEUT % 69.2 % (42.8-82.8); PLATELET COUNT 321 10^3/uL (134-434); RDW 21.2 % (11.6-15.6); WHITE BLOOD COUNT 6.6 K/mm3 (4.0-10.0)
[2021-10-25] MEDS: FUROSEMIDE 20 MG TABLET (FP) PO SCH (09:24)
[2021-10-25] MEDS: ASPIRIN 81 MG CHEWABLE TABLETS PO SCH (09:24)
[2021-10-25] MEDS: LISINOPRIL 20 MG TABLET PO SCH (09:25)
[2021-10-25] MEDS: CLOPIDOGREL BISULFATE 75 MG TABLET (FP) PO SCH (09:25)
[2021-10-25] MEDS: SODIUM HYPOCHLORITE 0.25%- 473 ML BULK BOTTLE TP SCH (09:27)
[2021-10-25 09:43] LABS: BLOOD UREA NITROGEN 15.3 mg/dL (7-18)
[2021-10-25 09:46] LABS: CREATININE 0.5 mg/dL (0.55-1.3); PHOSPHOROUS 3.2 mg/dL (2.5-4.9)
[2021-10-25] MEDS ORDERED: INSULIN (NOVOLOG) ASPART 100 UNITS/ML 10ML VIAL ONE ×2 (11:21→21:19)
[2021-10-25] MEDS ORDERED: INSULIN (LEVEMIR) 100 UNITS/ML UNITS SQ ONE (11:22)
[2021-10-25] MEDS: ATORVASTATIN CA 80 MG TABLET (FP) PO SCH (21:42)
[2021-10-26] MEDS ORDERED: DEXTROSE 5%-WATER - 50 ML IVPB ONE ×4 (02:14→20:17)
[2021-10-26] MEDS ORDERED: PIPERACILLIN/TAZOBACTAM 3.375 GM VIAL IVPB ONE ×4 (02:14→20:17)
[2021-10-26] MEDS: PIPERACILLIN/TAZOB 3.375 GM 3.375 GM in DEXTROSE 5%-WATER - 50 ML IVPB SCH ×4 (03:13→20:39)
[2021-10-26] MEDS: HEPARIN NA (PORCINE) 5,000 UNITS/ML 1ML VIAL SQ SCH ×3 (06:10→22:24)
[2021-10-26] MEDS: Insulin (LOG) Aspart 100 UNITS/ML VIAL SQ SCH ×2 (06:10→11:19)
[2021-10-26] MEDS: INSULIN (LEVEMIR) 100 UNITS/ML UNITS SQ SCH (06:10)
[2021-10-26] MEDS: INSULIN SLIDING SCALE (NOVOLOG) 1 VIAL SQ SCH ×4 (06:11→22:24)
[2021-10-26 09:10] LABS: BASO % 1.1 % (0-2.0); EOS % 2.6 % (0-4.5); HEMATOCRIT 32.5 % (32.4-45.2); HEMOGLOBIN 10.1 GM/dL (10.7-15.3); LYMPH % 23.7 % (8-40); MCH 24.1 pg (25.7-33.7); MEAN CELL VOLUME 77.9 fl (80-96); MEAN PLT VOLUME 8.7 fl (7.5-11.1); MONO % 8.3 % (3.8-10.2); NEUT % 64.3 % (42.8-82.8); PLATELET COUNT 343 10^3/uL (134-434); RBC 4.18 M/mm3 (3.60-5.2); RDW 21.4 % (11.6-15.6); WHITE BLOOD COUNT 6.8 K/mm3 (4.0-10.0)
[2021-10-26] MEDS: ASPIRIN 81 MG CHEWABLE TABLETS PO SCH (09:18)
[2021-10-26] MEDS: FUROSEMIDE 20 MG TABLET (FP) PO SCH (09:19)
[2021-10-26] MEDS: CLOPIDOGREL BISULFATE 75 MG TABLET (FP) PO SCH (09:20)
[2021-10-26] MEDS: LISINOPRIL 20 MG TABLET PO SCH (09:20)
[2021-10-26 10:08] LABS: CALCIUM 9.4 mg/dL (8.5-10.1)
[2021-10-26 10:09] LABS: BLOOD UREA NITROGEN 11.4 mg/dL (7-18)
[2021-10-26 10:12] LABS: CREATININE 0.6 mg/dL (0.55-1.3)
[2021-10-26] MEDS ORDERED: INSULIN (LEVEMIR) 100 UNITS/ML UNITS SQ ONE ×2 (11:14→18:39)
[2021-10-26] MEDS: SODIUM HYPOCHLORITE 0.25%- 473 ML BULK BOTTLE TP SCH (13:11)
[2021-10-26] MEDS ORDERED: PROMETHAZINE HCL 25 MG/1 ML VIAL IVPUSH PRN ×2 (14:48→20:05)
[2021-10-26] MEDS ORDERED: ONDANSETRON 4 MG/2 ML VIAL IVPUSH PRN ×2 (14:48→20:05)
[2021-10-26] MEDS ORDERED: LACTATED RINGERS SOLUTION 1,000 ML IV SCH (15:00)
[2021-10-26] MEDS ORDERED: LIDOCAINE HCL 1%, 10 MG/ML (20ML VIAL) ONE (16:27)
[2021-10-26] MEDS ORDERED: HEPARIN NA (PORCINE) 5,000 UNITS/ML 1ML VIAL ONE ×2 (16:27→18:07)
[2021-10-26] MEDS ORDERED: BUPIVACAINE HCL 0.5% 250 MG/50 ML VIAL NR ONE (17:02)
[2021-10-26] MEDS ORDERED: FENTANYL CITRATE/PF 50 MCG/ML VIAL ONE ×2 (17:33→17:53)
[2021-10-26] MEDS ORDERED: MIDAZOLAM HCL 2 MG/2 ML SINGLE DOSE VIAL ONE ×2 (17:33→17:53)
[2021-10-26] MEDS ORDERED: HEPARIN NA (PORCINE) 5,000 UNITS/ML 1ML VIAL SQ ONE (17:36)
[2021-10-26] MEDS ORDERED: DEXAMETHASONE SOD PHOSPHATE 4 MG/1 ML VIAL ONE (17:55)
[2021-10-26] MEDS ORDERED: LIDOCAINE HCL 1%, 10 MG/ML (20ML VIAL) SQ ONE (17:55)
[2021-10-26] MEDS ORDERED: Insulin (LOG) Aspart 100 UNITS/ML VIAL SQ SCH (18:00)
[2021-10-26] MEDS ORDERED: INSULIN (NOVOLOG) ASPART 100 UNITS/ML 10ML VIAL ONE ×2 (18:39→22:21)
[2021-10-26] MEDS ORDERED: PROTAMINE SULFATE 50 MG/5 ML VIAL ONE (18:41)
[2021-10-26] MEDS ORDERED: NITROGLYCERIN SUBLINGUAL 1/150 0.4 MG TAB SL PRN (20:05)
[2021-10-26] MEDS ORDERED: ACETAMINOPHEN 325 MG TABLET (FP) PO PRN (20:05)
[2021-10-26] MEDS ORDERED: PIPERACILLIN/TAZOBACTAM 2.25 GM VIAL IVPB ONE (20:35)
[2021-10-26] MEDS: LACTATED RINGERS SOLUTION 1,000 ML IV SCH (21:58)
[2021-10-26] MEDS: ATORVASTATIN CA 80 MG TABLET (FP) PO SCH (22:17)
[2021-10-27] MEDS ORDERED: DEXTROSE 5%-WATER - 50 ML IVPB ONE ×4 (03:07→21:21)
[2021-10-27] MEDS ORDERED: PIPERACILLIN/TAZOBACTAM 3.375 GM VIAL IVPB ONE ×4 (03:07→21:20)
[2021-10-27] MEDS: PIPERACILLIN/TAZOB 3.375 GM 3.375 GM in DEXTROSE 5%-WATER - 50 ML IVPB SCH ×4 (03:10→21:58)
[2021-10-27] MEDS ORDERED: INSULIN (LEVEMIR) 100 UNITS/ML UNITS SQ ONE (05:51)
[2021-10-27] MEDS: HEPARIN NA (PORCINE) 5,000 UNITS/ML 1ML VIAL SQ SCH ×3 (06:09→21:59)
[2021-10-27] MEDS: INSULIN (LEVEMIR) 100 UNITS/ML UNITS SQ SCH (06:09)
[2021-10-27] MEDS: Insulin (LOG) Aspart 100 UNITS/ML VIAL SQ SCH ×3 (06:10→17:17)
[2021-10-27] MEDS: INSULIN SLIDING SCALE (NOVOLOG) 1 VIAL SQ SCH ×4 (06:10→22:00)
[2021-10-27] MEDS ORDERED: INSULIN (LEVEMIR) 100 UNITS/ML UNITS SQ SCH (07:00)
[2021-10-27] MEDS: LISINOPRIL 20 MG TABLET PO SCH (09:15)
[2021-10-27] MEDS: ASPIRIN 81 MG CHEWABLE TABLETS PO SCH (09:15)
[2021-10-27] MEDS: CLOPIDOGREL BISULFATE 75 MG TABLET (FP) PO SCH (09:15)
[2021-10-27] MEDS: FUROSEMIDE 40 MG TABLET (FP) PO SCH (09:15)
[2021-10-27 09:39] LABS: BASO % 0.6 % (0-2.0); EOS % 0.6 % (0-4.5); HEMATOCRIT 31.9 % (32.4-45.2); HEMOGLOBIN 9.9 GM/dL (10.7-15.3); LYMPH % 13.3 % (8-40); MCHC 31.2 g/dl (32.0-36.0); MEAN CELL VOLUME 77.1 fl (80-96); MEAN PLT VOLUME 8.6 fl (7.5-11.1); NEUT % 79.5 % (42.8-82.8); PLATELET COUNT 320 10^3/uL (134-434); RBC 4.13 M/mm3 (3.60-5.2); RDW 20.8 % (11.6-15.6); WHITE BLOOD COUNT 7.9 K/mm3 (4.0-10.0)
[2021-10-27 10:13] LABS: CALCIUM 9.8 mg/dL (8.5-10.1)
[2021-10-27 10:14] LABS: BLOOD UREA NITROGEN 12.3 mg/dL (7-18)
[2021-10-27 10:17] LABS: CREATININE 0.6 mg/dL (0.55-1.3)
[2021-10-27] MEDS: SODIUM HYPOCHLORITE 0.25%- 473 ML BULK BOTTLE TP SCH (11:14)
[2021-10-27] MEDS ORDERED: INSULIN (NOVOLOG) ASPART 100 UNITS/ML 10ML VIAL ONE ×3 (11:36→21:22)
[2021-10-27] MEDS: ATORVASTATIN CA 80 MG TABLET (FP) PO SCH (21:59)
[2021-10-27] MEDS: LACTATED RINGERS SOLUTION 1,000 ML IV SCH (23:50)
[2021-10-28] MEDS ORDERED: DEXTROSE 5%-WATER - 50 ML IVPB ONE ×5 (02:09→21:36)
[2021-10-28] MEDS ORDERED: PIPERACILLIN/TAZOBACTAM 3.375 GM VIAL IVPB ONE ×5 (02:09→21:35)
[2021-10-28] MEDS: PIPERACILLIN/TAZOB 3.375 GM 3.375 GM in DEXTROSE 5%-WATER - 50 ML IVPB SCH ×4 (02:15→21:39)
[2021-10-28] MEDS ORDERED: INSULIN (LEVEMIR) 100 UNITS/ML UNITS SQ ONE (05:18)
[2021-10-28] MEDS: Insulin (LOG) Aspart 100 UNITS/ML VIAL SQ SCH ×3 (06:11→17:57)
[2021-10-28] MEDS: INSULIN (LEVEMIR) 100 UNITS/ML UNITS SQ SCH (06:11)
[2021-10-28] MEDS: HEPARIN NA (PORCINE) 5,000 UNITS/ML 1ML VIAL SQ SCH ×3 (06:12→21:39)
[2021-10-28] MEDS: INSULIN SLIDING SCALE (NOVOLOG) 1 VIAL SQ SCH ×4 (06:13→23:55)
[2021-10-28] MEDS ORDERED: INSULIN (LEVEMIR) 100 UNITS/ML UNITS SQ SCH (08:20)
[2021-10-28] MEDS: CLOPIDOGREL BISULFATE 75 MG TABLET (FP) PO SCH (09:27)
[2021-10-28] MEDS: ASPIRIN 81 MG CHEWABLE TABLETS PO SCH (09:27)
[2021-10-28] MEDS: LISINOPRIL 20 MG TABLET PO SCH (09:27)
[2021-10-28] MEDS: FUROSEMIDE 40 MG TABLET (FP) PO SCH (09:27)
[2021-10-28 09:36] LABS: BASO % 1.1 % (0-2.0); EOS % 2.8 % (0-4.5); HEMOGLOBIN 8.3 GM/dL (10.7-15.3); LYMPH % 24.4 % (8-40); MCH 23.9 pg (25.7-33.7); MCHC 30.8 g/dl (32.0-36.0); MEAN CELL VOLUME 77.6 fl (80-96); MEAN PLT VOLUME 8.8 fl (7.5-11.1); MONO % 9.8 % (3.8-10.2); NEUT % 61.9 % (42.8-82.8); PLATELET COUNT 298 10^3/uL (134-434); RBC 3.48 M/mm3 (3.60-5.2); RDW 20.6 % (11.6-15.6); WHITE BLOOD COUNT 7.2 K/mm3 (4.0-10.0)
[2021-10-28 10:04] LABS: CALCIUM 9.2 mg/dL (8.5-10.1)
[2021-10-28 10:07] LABS: BLOOD UREA NITROGEN 13.4 mg/dL (7-18)
[2021-10-28 10:10] LABS: CREATININE 0.5 mg/dL (0.55-1.3)
[2021-10-28 10:16] LABS: ANISOCYTOSIS 2+; MACROCYTOSIS 0
[2021-10-28] MEDS: SODIUM HYPOCHLORITE 0.25%- 473 ML BULK BOTTLE TP SCH (11:13)
[2021-10-28] MEDS ORDERED: INSULIN (NOVOLOG) ASPART 100 UNITS/ML 10ML VIAL ONE (11:47)
[2021-10-28] MEDS ORDERED: DEXTROSE 50%-WATER - 25 GM/50 ML VIAL IVPUSH ONE (14:06)
[2021-10-28] MEDS ORDERED: DEXTROSE 50%-WATER 25 GM/50 ML DISP.SYRIN ONE (14:07)
[2021-10-28] MEDS: LACTATED RINGERS SOLUTION 1,000 ML IV SCH (20:15)
[2021-10-28] MEDS: ATORVASTATIN CA 80 MG TABLET (FP) PO SCH (21:40)
[2021-10-29] MEDS ORDERED: PIPERACILLIN/TAZOBACTAM 3.375 GM VIAL IVPB ONE ×5 (01:40→21:25)
[2021-10-29] MEDS ORDERED: DEXTROSE 5%-WATER - 50 ML IVPB ONE ×5 (01:40→21:25)
[2021-10-29] MEDS: PIPERACILLIN/TAZOB 3.375 GM 3.375 GM in DEXTROSE 5%-WATER - 50 ML IVPB SCH ×4 (02:24→21:43)
[2021-10-29] MEDS: HEPARIN NA (PORCINE) 5,000 UNITS/ML 1ML VIAL SQ SCH ×3 (05:34→21:45)
[2021-10-29] MEDS: INSULIN (LEVEMIR) 100 UNITS/ML UNITS SQ SCH (06:00)
[2021-10-29] MEDS: INSULIN SLIDING SCALE (NOVOLOG) 1 VIAL SQ SCH ×4 (06:00→21:49)
[2021-10-29 08:36] LABS: BASO % 1.1 % (0-2.0); EOS % 2.7 % (0-4.5); HEMATOCRIT 30.5 % (32.4-45.2); HEMOGLOBIN 9.5 GM/dL (10.7-15.3); MCH 24.2 pg (25.7-33.7); MCHC 31.2 g/dl (32.0-36.0); MEAN CELL VOLUME 77.6 fl (80-96); MEAN PLT VOLUME 8.5 fl (7.5-11.1); MONO % 8.9 % (3.8-10.2); NEUT % 64.3 % (42.8-82.8); PLATELET COUNT 279 10^3/uL (134-434); RBC 3.93 M/mm3 (3.60-5.2); RDW 20.4 % (11.6-15.6); WHITE BLOOD COUNT 4.7 K/mm3 (4.0-10.0)
[2021-10-29 09:12] LABS: CALCIUM 9.2 mg/dL (8.5-10.1)
[2021-10-29 09:13] LABS: BLOOD UREA NITROGEN 11.1 mg/dL (7-18)
[2021-10-29] MEDS: FUROSEMIDE 40 MG TABLET (FP) PO SCH (09:13)
[2021-10-29] MEDS: ASPIRIN 81 MG CHEWABLE TABLETS PO SCH (09:13)
[2021-10-29] MEDS: CLOPIDOGREL BISULFATE 75 MG TABLET (FP) PO SCH (09:13)
[2021-10-29] MEDS: LISINOPRIL 20 MG TABLET PO SCH (09:13)
[2021-10-29 09:16] LABS: CREATININE 0.5 mg/dL (0.55-1.3)
[2021-10-29] MEDS ORDERED: INSULIN (NOVOLOG) ASPART 100 UNITS/ML 10ML VIAL ONE (11:15)
[2021-10-29] MEDS: SODIUM HYPOCHLORITE 0.25%- 473 ML BULK BOTTLE TP SCH (12:26)
[2021-10-29] MEDS: LACTATED RINGERS SOLUTION 1,000 ML IV SCH ×2 (12:58→21:43)
[2021-10-29] MEDS: ATORVASTATIN CA 80 MG TABLET (FP) PO SCH (21:45)
[2021-10-30] MEDS ORDERED: PIPERACILLIN/TAZOBACTAM 3.375 GM VIAL IVPB ONE ×4 (01:07→21:14)
[2021-10-30] MEDS ORDERED: DEXTROSE 5%-WATER - 50 ML IVPB ONE ×4 (01:07→21:14)
[2021-10-30] MEDS: PIPERACILLIN/TAZOB 3.375 GM 3.375 GM in DEXTROSE 5%-WATER - 50 ML IVPB SCH ×4 (02:16→21:30)
[2021-10-30] MEDS: INSULIN (LEVEMIR) 100 UNITS/ML UNITS SQ SCH (06:49)
[2021-10-30] MEDS: HEPARIN NA (PORCINE) 5,000 UNITS/ML 1ML VIAL SQ SCH ×3 (06:49→21:30)
[2021-10-30] MEDS: INSULIN SLIDING SCALE (NOVOLOG) 1 VIAL SQ SCH ×4 (06:49→21:31)
[2021-10-30] MEDS: LACTATED RINGERS SOLUTION 1,000 ML IV SCH ×3 (06:54→21:28)
[2021-10-30 07:33] LABS: BASO % 1.1 % (0-2.0); EOS % 3.2 % (0-4.5); HEMATOCRIT 30.5 % (32.4-45.2); HEMOGLOBIN 9.6 GM/dL (10.7-15.3); LYMPH % 21.4 % (8-40); MCH 24.4 pg (25.7-33.7); MCHC 31.7 g/dl (32.0-36.0); MEAN CELL VOLUME 77.1 fl (80-96); MEAN PLT VOLUME 8.3 fl (7.5-11.1); MONO % 7.1 % (3.8-10.2); NEUT % 67.2 % (42.8-82.8); PLATELET COUNT 272 10^3/uL (134-434); RBC 3.95 M/mm3 (3.60-5.2); RDW 19.8 % (11.6-15.6); WHITE BLOOD COUNT 4.7 K/mm3 (4.0-10.0)
[2021-10-30 08:00] LABS: BLOOD UREA NITROGEN 10.7 mg/dL (7-18); CALCIUM 9.3 mg/dL (8.5-10.1)
[2021-10-30 08:03] LABS: CREATININE 0.6 mg/dL (0.55-1.3)
[2021-10-30] MEDS: ASPIRIN 81 MG CHEWABLE TABLETS PO SCH (09:27)
[2021-10-30] MEDS: FUROSEMIDE 40 MG TABLET (FP) PO SCH (09:29)
[2021-10-30] MEDS: CLOPIDOGREL BISULFATE 75 MG TABLET (FP) PO SCH (09:29)
[2021-10-30] MEDS: LISINOPRIL 20 MG TABLET PO SCH (09:30)
[2021-10-30] MEDS: SODIUM HYPOCHLORITE 0.25%- 473 ML BULK BOTTLE TP SCH (14:26)
[2021-10-30] MEDS: ATORVASTATIN CA 80 MG TABLET (FP) PO SCH (21:30)
[2021-10-31] MEDS ORDERED: DEXTROSE 5%-WATER - 50 ML IVPB ONE ×2 (00:35→09:21)
[2021-10-31] MEDS ORDERED: PIPERACILLIN/TAZOBACTAM 3.375 GM VIAL IVPB ONE ×2 (00:35→09:20)
[2021-10-31] MEDS: PIPERACILLIN/TAZOB 3.375 GM 3.375 GM in DEXTROSE 5%-WATER - 50 ML IVPB SCH ×2 (02:19→09:26)
[2021-10-31] MEDS: HEPARIN NA (PORCINE) 5,000 UNITS/ML 1ML VIAL SQ SCH ×3 (06:20→21:05)
[2021-10-31] MEDS: INSULIN SLIDING SCALE (NOVOLOG) 1 VIAL SQ SCH ×4 (06:21→21:05)
[2021-10-31] MEDS: INSULIN (LEVEMIR) 100 UNITS/ML UNITS SQ SCH (06:21)
[2021-10-31 08:19] LABS: BASO % 1.6 % (0-2.0); EOS % 3.9 % (0-4.5); HEMATOCRIT 26.3 % (32.4-45.2); HEMOGLOBIN 8.2 GM/dL (10.7-15.3); LYMPH % 28.2 % (8-40); MEAN CELL VOLUME 77.4 fl (80-96); MEAN PLT VOLUME 8.7 fl (7.5-11.1); MONO % 9.9 % (3.8-10.2); NEUT % 56.4 % (42.8-82.8); PLATELET COUNT 242 10^3/uL (134-434); RBC 3.39 M/mm3 (3.60-5.2); WHITE BLOOD COUNT 3.9 K/mm3 (4.0-10.0)
[2021-10-31 08:22] LABS: BLOOD UREA NITROGEN 7.9 mg/dL (7-18); CALCIUM 8.5 mg/dL (8.5-10.1); MAGNESIUM 1.8 mg/dL (1.8-2.4)
[2021-10-31 08:24] LABS: PHOSPHOROUS 2.7 mg/dL (2.5-4.9)
[2021-10-31 08:26] LABS: CREATININE 0.5 mg/dL (0.55-1.3)
[2021-10-31] MEDS: FUROSEMIDE 40 MG TABLET (FP) PO SCH (09:26)
[2021-10-31] MEDS: CLOPIDOGREL BISULFATE 75 MG TABLET (FP) PO SCH (09:26)
[2021-10-31] MEDS: LISINOPRIL 20 MG TABLET PO SCH (09:26)
[2021-10-31] MEDS: ASPIRIN 81 MG CHEWABLE TABLETS PO SCH (09:26)
[2021-10-31] MEDS: SODIUM HYPOCHLORITE 0.25%- 473 ML BULK BOTTLE TP SCH (09:50)
[2021-10-31] MEDS ORDERED: metroNIDAZOLE 250 MG TABLET PO SCH (10:00)
[2021-10-31] MEDS ORDERED: CEFTRIAXONE 2 GM in DEXTROSE 5%-WATER 2 GM/100 ML BAG IVPB SCH (10:00)
[2021-10-31] MEDS ORDERED: DEXTROSE 5%-WATER 100 ML IVPB ONE (10:01)
[2021-10-31] MEDS: CEFTRIAXONE 2 GM in DEXTROSE 5%-WATER 100 ML IVPB SCH (10:38)
[2021-10-31] MEDS: metroNIDAZOLE 250 MG TABLET PO SCH ×2 (13:56→21:04)
[2021-10-31] MEDS ORDERED: INSULIN (NOVOLOG) ASPART 100 UNITS/ML 10ML VIAL ONE (16:20)
[2021-10-31] MEDS: ATORVASTATIN CA 80 MG TABLET (FP) PO SCH (21:04)
[2021-11-01] MEDS: metroNIDAZOLE 250 MG TABLET PO SCH ×3 (05:54→21:24)
[2021-11-01] MEDS: HEPARIN NA (PORCINE) 5,000 UNITS/ML 1ML VIAL SQ SCH ×3 (05:55→21:23)
[2021-11-01] MEDS: INSULIN (LEVEMIR) 100 UNITS/ML UNITS SQ SCH (06:02)
[2021-11-01] MEDS: INSULIN SLIDING SCALE (NOVOLOG) 1 VIAL SQ SCH ×4 (06:03→21:23)
[2021-11-01] MEDS ORDERED: DEXTROSE 5%-WATER 100 ML IVPB ONE (09:04)
[2021-11-01] MEDS: FUROSEMIDE 40 MG TABLET (FP) PO SCH (09:42)
[2021-11-01] MEDS: LISINOPRIL 20 MG TABLET PO SCH (09:42)
[2021-11-01] MEDS: CLOPIDOGREL BISULFATE 75 MG TABLET (FP) PO SCH (09:42)
[2021-11-01] MEDS: ASPIRIN 81 MG CHEWABLE TABLETS PO SCH (09:45)
[2021-11-01] MEDS: CEFTRIAXONE 2 GM in DEXTROSE 5%-WATER 100 ML IVPB SCH (09:46)
[2021-11-01] MEDS: SODIUM HYPOCHLORITE 0.25%- 473 ML BULK BOTTLE TP SCH (09:49)
[2021-11-01] MEDS: ATORVASTATIN CA 80 MG TABLET (FP) PO SCH (21:24)
[2021-11-02] MEDS ORDERED: INSULIN (LEVEMIR) 100 UNITS/ML UNITS SQ ONE (05:38)
[2021-11-02] MEDS: HEPARIN NA (PORCINE) 5,000 UNITS/ML 1ML VIAL SQ SCH ×2 (06:12→16:16)
[2021-11-02] MEDS: INSULIN SLIDING SCALE (NOVOLOG) 1 VIAL SQ SCH ×4 (06:13→21:20)
[2021-11-02] MEDS: INSULIN (LEVEMIR) 100 UNITS/ML UNITS SQ SCH (06:13)
[2021-11-02] MEDS: metroNIDAZOLE 250 MG TABLET PO SCH ×3 (06:14→21:16)
[2021-11-02] MEDS ORDERED: DEXTROSE 5%-WATER 100 ML IVPB ONE (08:58)
[2021-11-02 09:19] LABS: BASO % 1.3 % (0-2.0); EOS % 3.5 % (0-4.5); HEMATOCRIT 27.4 % (32.4-45.2); HEMOGLOBIN 8.6 GM/dL (10.7-15.3); LYMPH % 27.5 % (8-40); MCH 24.4 pg (25.7-33.7); MCHC 31.5 g/dl (32.0-36.0); MEAN CELL VOLUME 77.7 fl (80-96); MEAN PLT VOLUME 8.7 fl (7.5-11.1); MONO % 10.2 % (3.8-10.2); NEUT % 57.5 % (42.8-82.8); PLATELET COUNT 272 10^3/uL (134-434); RBC 3.53 M/mm3 (3.60-5.2); RDW 19.1 % (11.6-15.6); WHITE BLOOD COUNT 4.5 K/mm3 (4.0-10.0)
[2021-11-02 09:44] LABS: CREATININE 0.5 mg/dL (0.55-1.3); TOT PROT 6.6 g/dl (6.4-8.2)
[2021-11-02 09:45] LABS: BILIRUBIN,TOTAL 0.3 mg/dL (0.2-1)
[2021-11-02 09:46] LABS: BLOOD UREA NITROGEN 12.2 mg/dL (7-18)
[2021-11-02 09:50] LABS: PHOSPHOROUS 2.8 mg/dL (2.5-4.9)
[2021-11-02 09:52] LABS: ALBUMIN 2.8 g/dl (3.4-5.0)
[2021-11-02] MEDS: ASPIRIN 81 MG CHEWABLE TABLETS PO SCH (10:21)
[2021-11-02] MEDS: LISINOPRIL 20 MG TABLET PO SCH (10:21)
[2021-11-02] MEDS: CEFTRIAXONE 2 GM in DEXTROSE 5%-WATER 100 ML IVPB SCH (10:21)
[2021-11-02] MEDS: CLOPIDOGREL BISULFATE 75 MG TABLET (FP) PO SCH (10:21)
[2021-11-02] MEDS: FUROSEMIDE 40 MG TABLET (FP) PO SCH (10:21)
[2021-11-02] MEDS: SODIUM HYPOCHLORITE 0.25%- 473 ML BULK BOTTLE TP SCH (10:30)
[2021-11-02] MEDS ORDERED: INSULIN (NOVOLOG) ASPART 100 UNITS/ML 10ML VIAL ONE (11:46)
[2021-11-02 18:08] LABS: ARTERIAL BLD GAS O2 SATURATION 59.1 % (95-98); ARTERIAL BLOOD GAS BASE EXCESS 3.6 mmol/L (-2-2)
[2021-11-02 18:10] LABS: ARTERIAL BLOOD GAS PO2 32.6 mmHg (80-100)
[2021-11-02] MEDS: ATORVASTATIN CA 80 MG TABLET (FP) PO SCH (21:15)
[2021-11-03] MEDS: metroNIDAZOLE 250 MG TABLET PO SCH ×2 (05:50→14:55)
[2021-11-03] MEDS: INSULIN (LEVEMIR) 100 UNITS/ML UNITS SQ SCH (06:17)
[2021-11-03] MEDS: INSULIN SLIDING SCALE (NOVOLOG) 1 VIAL SQ SCH ×3 (07:43→16:41)
[2021-11-03 09:26] LABS: EOS % 3.3 % (0-4.5); HEMATOCRIT 26.9 % (32.4-45.2); HEMOGLOBIN 8.5 GM/dL (10.7-15.3); LYMPH % 23.8 % (8-40); MCH 24.5 pg (25.7-33.7); MCHC 31.7 g/dl (32.0-36.0); MEAN CELL VOLUME 77.2 fl (80-96); MEAN PLT VOLUME 8.7 fl (7.5-11.1); MONO % 10.6 % (3.8-10.2); NEUT % 61.3 % (42.8-82.8); PLATELET COUNT 240 10^3/uL (134-434); RBC 3.49 M/mm3 (3.60-5.2); RDW 19.1 % (11.6-15.6); WHITE BLOOD COUNT 4.3 K/mm3 (4.0-10.0)
[2021-11-03] MEDS ORDERED: DEXTROSE 5%-WATER 100 ML IVPB ONE (09:38)
[2021-11-03] MEDS: CLOPIDOGREL BISULFATE 75 MG TABLET (FP) PO SCH (09:46)
[2021-11-03] MEDS: FUROSEMIDE 40 MG TABLET (FP) PO SCH (09:46)
[2021-11-03] MEDS: LISINOPRIL 20 MG TABLET PO SCH (09:46)
[2021-11-03] MEDS: CEFTRIAXONE 2 GM in DEXTROSE 5%-WATER 100 ML IVPB SCH (09:46)
[2021-11-03] MEDS: ASPIRIN 81 MG CHEWABLE TABLETS PO SCH (09:46)
[2021-11-03 10:00] LABS: CALCIUM 8.9 mg/dL (8.5-10.1)
[2021-11-03 10:01] LABS: ALBUMIN 2.8 g/dl (3.4-5.0); BLOOD UREA NITROGEN 10.4 mg/dL (7-18); MAGNESIUM 1.9 mg/dL (1.8-2.4)
[2021-11-03 10:03] LABS: CREATININE 0.4 mg/dL (0.55-1.3); PHOSPHOROUS 3.1 mg/dL (2.5-4.9)
[2021-11-03 10:05] LABS: TOT PROT 6.7 g/dl (6.4-8.2)
[2021-11-03 10:07] LABS: BILIRUBIN,TOTAL 0.4 mg/dL (0.2-1)
[2021-11-03] MEDS ORDERED: INSULIN (NOVOLOG) ASPART 100 UNITS/ML 10ML VIAL ONE (11:06)
[2021-11-03] MEDS: SODIUM HYPOCHLORITE 0.25%- 473 ML BULK BOTTLE TP SCH (11:22)
[2021-11-03 14:53] VITALS: BP 119/56; PULSE 72; TEMP 97.6
== END 2021-11-03 18:35 | disposition home health service (06) | DRG 271 ==
LOC: JER 11:24 → JERBED 16:19 → J8W 18:44
PROVIDERS: ADMIT Internal Medicine; ATTEND Internal Medicine
PROC: 0JBQ0ZZ Excision of Right Foot Subcutaneous Tissue and Fascia, Open Approach (ICD-10-PCS; 2021-10-26)
PROC: 047M3Z1 Dilation of Right Popliteal Artery using Drug-Coated Balloon, Percutaneous Approach (ICD-10-PCS; 2021-10-26)
PROC: 0QBL0ZZ Excision of Right Tarsal, Open Approach (ICD-10-PCS; 2021-10-26)
PROC: B40FYZZ Plain Radiography of Right Lower Extremity Arteries using Other Contrast (ICD-10-PCS; 2021-10-26)
PROC: 2W1SX6Z Compression of Right Foot using Pressure Dressing (ICD-10-PCS; 2021-10-26)
PROC: 04CM3ZZ Extirpation of Matter from Right Popliteal Artery, Percutaneous Approach (ICD-10-PCS; 2021-10-26 17:00)
PROC: 02HV33Z Insertion of Infusion Device into Superior Vena Cava, Percutaneous Approach (ICD-10-PCS; principal; 2021-11-02)
PROC: B518ZZA Fluoroscopy of Superior Vena Cava, Guidance (ICD-10-PCS; 2021-11-02)
DX: E11.52 Type 2 diabetes mellitus with diabetic peripheral angiopathy with gangrene (principal); L97.518 Non-pressure chronic ulcer of other part of right foot with other specified severity; I50.32 Chronic diastolic (congestive) heart failure; M86.171 Other acute osteomyelitis, right ankle and foot; E11.69 Type 2 diabetes mellitus with other specified complication; I70.298 Other atherosclerosis of native arteries of extremities, other extremity; E11.621 Type 2 diabetes mellitus with foot ulcer; E78.5 Hyperlipidemia, unspecified; I10 Essential (primary) hypertension; I25.10 Atherosclerotic heart disease of native coronary artery without angina pectoris; E11.65 Type 2 diabetes mellitus with hyperglycemia; B95.1 Streptococcus, group B, as the cause of diseases classified elsewhere; B95.2 Enterococcus as the cause of diseases classified elsewhere; G47.30 Sleep apnea, unspecified; E11.42 Type 2 diabetes mellitus with diabetic polyneuropathy; I11.0 Hypertensive heart disease with heart failure; Z85.038 Personal history of other malignant neoplasm of large intestine; Z95.5 Presence of coronary angioplasty implant and graft
CPT/HCPCS: 36415; 36569; 36600; 71045-TC-FY; 73610-TC-RT-FY; 73630-TC-RT-FY; 73718-TC-RT; 76000-TC-FY; 80048; 80053; 80061; 81003; 82803; 82962; 83540; 83550; 83735; 84100; 84443; 84484; 85025; 85610; 85651; 85730; 86140; 86850; 86900; 86901; 87040; 87070; 87076; 87077; 87186; 87205; 88304-TC; 88305-TC; 88311-TC; 93005; 93010; 94760; 97116-GP; 97161-GP; 99285-25; A6196; C9803-CS; G0463-25; J1644; U0003; U0005

== ENCOUNTER 2021-11-07 18:54 | Inpatient (IN) | payer OTHER ==
[2021-11-07 19:06] VITALS: BMI 28.2
[2021-11-07 23:12] LABS: BASO % 0.9 % (0-2.0); EOS % 2.9 % (0-4.5); HEMATOCRIT 29.2 % (32.4-45.2); HEMOGLOBIN 9.2 GM/dL (10.7-15.3); LYMPH % 16.3 % (8-40); MCH 23.7 pg (25.7-33.7); MCHC 31.5 g/dl (32.0-36.0); MEAN CELL VOLUME 75.2 fl (80-96); MEAN PLT VOLUME 8.8 fl (7.5-11.1); MONO % 11.8 % (3.8-10.2); NEUT % 68.1 % (42.8-82.8); PLATELET COUNT 289 10^3/uL (134-434); RBC 3.88 M/mm3 (3.60-5.2); RDW 19.2 % (11.6-15.6)
[2021-11-07 23:41] LABS: CALCIUM 9.6 mg/dL (8.5-10.1)
[2021-11-07 23:42] LABS: ALBUMIN 3.3 g/dl (3.4-5.0); BLOOD UREA NITROGEN 18.4 mg/dL (7-18)
[2021-11-07 23:45] LABS: CREATININE 0.6 mg/dL (0.55-1.3)
[2021-11-07 23:47] LABS: BILIRUBIN,TOTAL 0.3 mg/dL (0.2-1); TOT PROT 7.7 g/dl (6.4-8.2)
[2021-11-08] MEDS: INSULIN (LEVEMIR) 100 UNITS/ML UNITS SQ SCH (07:29)
[2021-11-08 08:25] LABS: BASO % 0.9 % (0-2.0); EOS % 3.6 % (0-4.5); HEMATOCRIT 26.4 % (32.4-45.2); HEMOGLOBIN 8.3 GM/dL (10.7-15.3); LYMPH % 17.8 % (8-40); MCHC 31.5 g/dl (32.0-36.0); MEAN CELL VOLUME 76.1 fl (80-96); MEAN PLT VOLUME 9.2 fl (7.5-11.1); MONO % 13.1 % (3.8-10.2); NEUT % 64.6 % (42.8-82.8); PLATELET COUNT 234 10^3/uL (134-434); RBC 3.46 M/mm3 (3.60-5.2); RDW 18.5 % (11.6-15.6); WHITE BLOOD COUNT 5.3 K/mm3 (4.0-10.0)
[2021-11-08 08:33] LABS: INR 1.2 (0.83-1.09); PROTHROMBIN TIME (PATIENT) 13.8 SEC (9.7-13.0)
[2021-11-08 08:48] LABS: CALCIUM 8.9 mg/dL (8.5-10.1)
[2021-11-08 08:49] LABS: ALBUMIN 2.8 g/dl (3.4-5.0); BLOOD UREA NITROGEN 14.5 mg/dL (7-18); MAGNESIUM 1.9 mg/dL (1.8-2.4)
[2021-11-08 08:52] LABS: CREATININE 0.4 mg/dL (0.55-1.3)
[2021-11-08 08:53] LABS: TOT PROT 6.7 g/dl (6.4-8.2)
[2021-11-08 08:54] LABS: BILIRUBIN,TOTAL 0.4 mg/dL (0.2-1)
[2021-11-08] MEDS: LISINOPRIL 20 MG TABLET PO SCH (10:10)
[2021-11-08] MEDS: ASPIRIN 81 MG CHEWABLE TABLETS PO SCH (10:10)
[2021-11-08] MEDS: ENOXAPARIN NA (PORCINE) 40 MG/0.4 ML DISP.SYRIN SQ SCH (10:10)
[2021-11-08] MEDS: FUROSEMIDE 40 MG TABLET (FP) PO SCH (10:10)
[2021-11-08] MEDS: CLOPIDOGREL BISULFATE 75 MG TABLET (FP) PO SCH (10:10)
[2021-11-08] MEDS ORDERED: DEXTROSE 5%-WATER - 50 ML IVPB ONE (14:57)
[2021-11-08] MEDS ORDERED: cefTRIAXone SODIUM 1 GM VIAL ONE (14:57)
[2021-11-08] MEDS: metroNIDAZOLE 250 MG TABLET PO SCH ×2 (15:00→23:39)
[2021-11-08] MEDS ORDERED: VANCOMYCIN 1 GM/200 ML PREMIX BAG IVPB ONE (15:35)
[2021-11-08] MEDS ORDERED: VANCOMYCIN/WATER FOR INJ (PEG) 1,000 MG/200 ML BAG IVPB ONE (15:45)
[2021-11-08] MEDS: CEFTRIAXONE 1 GM in DEXTROSE 5%-WATER - 50 ML IVPB SCH (16:51)
[2021-11-08] MEDS: ATORVASTATIN CA 80 MG TABLET (FP) PO SCH (23:39)
[2021-11-09] MEDS: INSULIN (LEVEMIR) 100 UNITS/ML UNITS SQ SCH (06:41)
[2021-11-09] MEDS: metroNIDAZOLE 250 MG TABLET PO SCH ×3 (06:41→21:48)
[2021-11-09] MEDS ORDERED: cefTRIAXone SODIUM 1 GM VIAL ONE (08:49)
[2021-11-09] MEDS ORDERED: DEXTROSE 5%-WATER - 50 ML IVPB ONE (08:49)
[2021-11-09] MEDS ORDERED: ACETAMINOPHEN 325 MG TABLET (FP) PO PRN (09:00)
[2021-11-09] MEDS: CEFTRIAXONE 1 GM in DEXTROSE 5%-WATER - 50 ML IVPB SCH (09:01)
[2021-11-09] MEDS: ENOXAPARIN NA (PORCINE) 40 MG/0.4 ML DISP.SYRIN SQ SCH (09:02)
[2021-11-09] MEDS: ASPIRIN 81 MG CHEWABLE TABLETS PO SCH (09:03)
[2021-11-09] MEDS: LISINOPRIL 20 MG TABLET PO SCH (09:03)
[2021-11-09] MEDS: FUROSEMIDE 40 MG TABLET (FP) PO SCH (09:03)
[2021-11-09] MEDS: CLOPIDOGREL BISULFATE 75 MG TABLET (FP) PO SCH (09:04)
[2021-11-09 09:21] LABS: BASO % 1.2 % (0-2.0); HEMATOCRIT 26.7 % (32.4-45.2); HEMOGLOBIN 8.2 GM/dL (10.7-15.3); LYMPH % 22.1 % (8-40); MCH 23.3 pg (25.7-33.7); MCHC 30.6 g/dl (32.0-36.0); MEAN CELL VOLUME 76.2 fl (80-96); MEAN PLT VOLUME 8.9 fl (7.5-11.1); MONO % 13.1 % (3.8-10.2); NEUT % 59.6 % (42.8-82.8); PLATELET COUNT 216 10^3/uL (134-434); RBC 3.51 M/mm3 (3.60-5.2); RDW 18.2 % (11.6-15.6); WHITE BLOOD COUNT 4.1 K/mm3 (4.0-10.0)
[2021-11-09 09:54] LABS: CALCIUM 8.9 mg/dL (8.5-10.1)
[2021-11-09 09:55] LABS: ALBUMIN 2.6 g/dl (3.4-5.0); BLOOD UREA NITROGEN 9.6 mg/dL (7-18); MAGNESIUM 1.9 mg/dL (1.8-2.4)
[2021-11-09 09:58] LABS: CREATININE 0.5 mg/dL (0.55-1.3)
[2021-11-09 09:59] LABS: BILIRUBIN,TOTAL 0.4 mg/dL (0.2-1); TOT PROT 6.4 g/dl (6.4-8.2)
[2021-11-09 10:01] LABS: PHOSPHOROUS 2.6 mg/dL (2.5-4.9)
[2021-11-09] MEDS: INSULIN SLIDING SCALE (NOVOLOG) 1 VIAL SQ SCH ×2 (16:48→21:49)
[2021-11-09] MEDS: ATORVASTATIN CA 80 MG TABLET (FP) PO SCH (21:48)
[2021-11-10] MEDS: metroNIDAZOLE 250 MG TABLET PO SCH ×2 (05:30→13:27)
[2021-11-10] MEDS: INSULIN (LEVEMIR) 100 UNITS/ML UNITS SQ SCH (06:05)
[2021-11-10] MEDS: INSULIN SLIDING SCALE (NOVOLOG) 1 VIAL SQ SCH ×3 (06:05→16:04)
[2021-11-10] MEDS ORDERED: cefTRIAXone SODIUM 1 GM VIAL ONE (09:24)
[2021-11-10] MEDS ORDERED: DEXTROSE 5%-WATER - 50 ML IVPB ONE (09:24)
[2021-11-10] MEDS: FUROSEMIDE 40 MG TABLET (FP) PO SCH (09:28)
[2021-11-10] MEDS: LISINOPRIL 20 MG TABLET PO SCH (09:28)
[2021-11-10] MEDS: ASPIRIN 81 MG CHEWABLE TABLETS PO SCH (09:28)
[2021-11-10] MEDS: CLOPIDOGREL BISULFATE 75 MG TABLET (FP) PO SCH (09:28)
[2021-11-10] MEDS: ENOXAPARIN NA (PORCINE) 40 MG/0.4 ML DISP.SYRIN SQ SCH (09:28)
[2021-11-10] MEDS: CEFTRIAXONE 1 GM in DEXTROSE 5%-WATER - 50 ML IVPB SCH (09:29)
[2021-11-10 09:45] LABS: HEMATOCRIT 27.5 % (32.4-45.2); HEMOGLOBIN 8.4 GM/dL (10.7-15.3); MCH 23.5 pg (25.7-33.7); MCHC 30.7 g/dl (32.0-36.0); MEAN CELL VOLUME 76.5 fl (80-96); MEAN PLT VOLUME 9.3 fl (7.5-11.1); PLATELET COUNT 230 10^3/uL (134-434); RDW 18.4 % (11.6-15.6); WHITE BLOOD COUNT 4.2 K/mm3 (4.0-10.0)
[2021-11-10 09:54] LABS: CALCIUM 9.1 mg/dL (8.5-10.1)
[2021-11-10 09:55] LABS: ALBUMIN 2.7 g/dl (3.4-5.0); BLOOD UREA NITROGEN 11.6 mg/dL (7-18); MAGNESIUM 1.8 mg/dL (1.8-2.4)
[2021-11-10 09:58] LABS: CREATININE 0.5 mg/dL (0.55-1.3)
[2021-11-10 09:59] LABS: TOT PROT 6.4 g/dl (6.4-8.2)
[2021-11-10 10:00] LABS: BILIRUBIN,TOTAL 0.3 mg/dL (0.2-1)
[2021-11-10 10:01] LABS: PHOSPHOROUS 2.7 mg/dL (2.5-4.9)
[2021-11-10 14:34] VITALS: BP 145/70; PULSE 77; TEMP 98.4
== END 2021-11-10 17:35 | disposition home health service (06) | DRG 315 ==
LOC: JER 18:54 → JERBED 11-08 00:35 → J7W 11-08 05:53
PROVIDERS: ADMIT Internal Medicine; ATTEND Internal Medicine
PROC: 02HV33Z Insertion of Infusion Device into Superior Vena Cava, Percutaneous Approach (ICD-10-PCS; principal; 2021-11-09)
PROC: B518ZZA Fluoroscopy of Superior Vena Cava, Guidance (ICD-10-PCS; 2021-11-09)
DX: T80.212A Local infection due to central venous catheter, initial encounter (principal); L97.518 Non-pressure chronic ulcer of other part of right foot with other specified severity; I50.32 Chronic diastolic (congestive) heart failure; M86.8X7 Other osteomyelitis, ankle and foot; T82.514A Breakdown (mechanical) of infusion catheter, initial encounter; E78.5 Hyperlipidemia, unspecified; E78.00 Pure hypercholesterolemia, unspecified; I25.10 Atherosclerotic heart disease of native coronary artery without angina pectoris; E11.621 Type 2 diabetes mellitus with foot ulcer; I11.0 Hypertensive heart disease with heart failure; E11.69 Type 2 diabetes mellitus with other specified complication; E11.65 Type 2 diabetes mellitus with hyperglycemia; E11.42 Type 2 diabetes mellitus with diabetic polyneuropathy; G47.30 Sleep apnea, unspecified; Y83.8 Other surgical procedures as the cause of abnormal reaction of the patient, or of later complication, without mention of misadventure at the time of the procedure; Z85.038 Personal history of other malignant neoplasm of large intestine
CPT/HCPCS: 36415; 36569; 80053; 82962; 83735; 84100; 85025; 85027; 85610; 87040; 93005; 93010; 99285-25; C9803-CS; U0003; U0005

== ENCOUNTER 2021-12-06 12:47 | Inpatient (IN) | payer OTHER ==
[2021-12-06] MEDS ORDERED: PIPERACILLIN/TAZOB 3.375 GM 3.375 GM in DEXTROSE 5%-WATER - 50 ML IVPB ONE (15:05)
[2021-12-06] MEDS ORDERED: VANCOMYCIN 1 GM in D5W (PRE-DOCKED) 1,000 MG/250 ML IVPB ONE (15:05)
[2021-12-06] MEDS ORDERED: VANCOMYCIN/WATER 1,250 MG/250 ML BAG IVPB ONE (15:07)
[2021-12-06] MEDS ORDERED: PIPERACILLIN/TAZOB 3.375 GM 3.375 GM/50 ML BAG IVPB ONE (15:14)
[2021-12-06] MEDS ORDERED: VANCOMYCIN/WATER 1250 MG 1,250 MG/250 ML BAG IVPB ONE (15:14)
[2021-12-06 16:48] LABS: BASO % 0.3 % (0-2.0); EOS % 0.7 % (0-4.5); HEMATOCRIT 28.6 % (32.4-45.2); HEMOGLOBIN 9.2 GM/dL (10.7-15.3); LYMPH % 10.6 % (8-40); MCH 22.9 pg (25.7-33.7); MCHC 32.1 g/dl (32.0-36.0); MEAN CELL VOLUME 71.4 fl (80-96); MEAN PLT VOLUME 8.6 fl (7.5-11.1); MONO % 11.9 % (3.8-10.2); NEUT % 76.5 % (42.8-82.8); PLATELET COUNT 408 10^3/uL (134-434); RDW 17.9 % (11.6-15.6); WHITE BLOOD COUNT 10.6 K/mm3 (4.0-10.0)
[2021-12-06 17:08] LABS: CALCIUM 8.9 mg/dL (8.5-10.1)
[2021-12-06 17:09] LABS: ALBUMIN 2.7 g/dl (3.4-5.0)
[2021-12-06 17:12] LABS: CREATININE 0.5 mg/dL (0.55-1.3)
[2021-12-06 17:14] LABS: BILIRUBIN,TOTAL 0.7 mg/dL (0.2-1); TOT PROT 6.9 g/dl (6.4-8.2)
[2021-12-06 17:49] LABS: ERYTHROCYTE SEDIMENTATION RATE 97 mm/hr (0-30)
[2021-12-06] MEDS ORDERED: VANCOMYCIN 1 GRAM (PRE-DOCKED) 1,000 MG/250 ML BAG IVPB SCH (18:30)
[2021-12-06 19:37] LABS: ACTIVATED PTT 32.7 SECONDS (25.2-36.5)
[2021-12-06 19:39] LABS: INR 1.24 (0.83-1.09); PROTHROMBIN TIME (PATIENT) 14.3 SEC (9.7-13.0)
[2021-12-06] MEDS ORDERED: POTASSIUM CHLORIDE TABS 10 MEQ TABLET.ER (FP) PO ONE (19:40)
[2021-12-06] MEDS ORDERED: KCL 10 MEQ IVPB 30 MEQ/300 ML INFUS.BAG IVPB ONE (20:19)
[2021-12-06] MEDS ORDERED: POTASSIUM CHLORIDE TABS 20 MEQ TABLET.ER (FP) PO ONE (20:19)
[2021-12-06] MEDS ORDERED: ACETAMINOPHEN 325 MG TABLET (FP) PO ONE (20:21)
[2021-12-06] MEDS: KCL 10 MEQ IVPB 10 MEQ/100 ML INFUS.BAG IVPB SCH ×3 (20:46→23:41)
[2021-12-06] MEDS ORDERED: ACETAMINOPHEN 325 MG TABLET (FP) PO PRN (21:03)
[2021-12-06] MEDS: INSULIN SLIDING SCALE (NOVOLOG) 1 VIAL SQ SCH (22:55)
[2021-12-07 01:35] LABS: MAGNESIUM 1.9 mg/dL (1.8-2.4)
[2021-12-07] MEDS ORDERED: PIPERACILLIN/TAZOBACTAM 4.5 GM VIAL IVPB ONE ×3 (03:18→17:21)
[2021-12-07] MEDS ORDERED: DEXTROSE 5%-WATER 100 ML IVPB ONE ×2 (03:19→09:48)
[2021-12-07] MEDS: PIPERACILLIN/TAZOB 4.5 GM 4.5 GM in DEXTROSE 5%-WATER 100 ML IVPB SCH ×2 (03:40→10:06)
[2021-12-07] MEDS: VANCOMYCIN 1 GRAM (PRE-DOCKED) 1,000 MG/250 ML BAG IVPB SCH ×2 (04:36→16:11)
[2021-12-07] MEDS: INSULIN SLIDING SCALE (NOVOLOG) 1 VIAL SQ SCH ×4 (06:01→21:26)
[2021-12-07 09:05] LABS: BASO % 0.7 % (0-2.0); EOS % 1.5 % (0-4.5); HEMATOCRIT 26.2 % (32.4-45.2); HEMOGLOBIN 8.2 GM/dL (10.7-15.3); LYMPH % 10.9 % (8-40); MCH 22.7 pg (25.7-33.7); MCHC 31.4 g/dl (32.0-36.0); MEAN CELL VOLUME 72.3 fl (80-96); MEAN PLT VOLUME 8.8 fl (7.5-11.1); MONO % 11.7 % (3.8-10.2); NEUT % 75.2 % (42.8-82.8); PLATELET COUNT 354 10^3/uL (134-434); RBC 3.63 M/mm3 (3.60-5.2); RDW 17.9 % (11.6-15.6); WHITE BLOOD COUNT 7.7 K/mm3 (4.0-10.0)
[2021-12-07 09:08] LABS: INR 1.21 (0.83-1.09)
[2021-12-07 09:11] LABS: ACTIVATED PTT 30.9 SECONDS (25.2-36.5)
[2021-12-07 09:24] LABS: BLOOD UREA NITROGEN 16.6 mg/dL (7-18)
[2021-12-07 09:25] LABS: ALBUMIN 2.2 g/dl (3.4-5.0); PHOSPHOROUS 2.1 mg/dL (2.5-4.9)
[2021-12-07 09:26] LABS: CALCIUM 8.7 mg/dL (8.5-10.1)
[2021-12-07 09:27] LABS: BILIRUBIN,TOTAL 0.3 mg/dL (0.2-1); CREATININE 0.6 mg/dL (0.55-1.3); MAGNESIUM 1.9 mg/dL (1.8-2.4)
[2021-12-07] MEDS: FUROSEMIDE 20 MG TABLET (FP) PO SCH (10:00)
[2021-12-07] MEDS: LISINOPRIL 10 MG TABLET PO SCH (10:01)
[2021-12-07] MEDS: ENOXAPARIN NA (PORCINE) 40 MG/0.4 ML DISP.SYRIN SQ SCH (10:07)
[2021-12-07] MEDS ORDERED: SODIUM PHOSPHATE - 30 MM in SODIUM CHLORIDE 500 ML IVPB ONE (11:30)
[2021-12-07] MEDS ORDERED: SODIUM CHLORIDE 100 ML IVPB ONE (17:22)
[2021-12-07] MEDS: CLOPIDOGREL BISULFATE 75 MG TABLET (FP) PO SCH (18:03)
[2021-12-07] MEDS: AMINO ACIDS/PROTEIN HYDROLYS 30 ML LIQUID.PKT PO SCH (18:03)
[2021-12-07] MEDS: PIPERACILLIN/TAZOB 4.5 GM 4.5 GM in SODIUM CHLORIDE 100 ML IVPB SCH (18:03)
[2021-12-07] MEDS: ASPIRIN COATED 81 MG TABLET.EC PO SCH (18:03)
[2021-12-07] MEDS: INSULIN (LEVEMIR) 100 UNITS/ML UNITS SQ SCH (21:26)
[2021-12-07] MEDS: ATORVASTATIN CA 80 MG TABLET (FP) PO SCH (21:27)
[2021-12-07] MEDS: ACETAMINOPHEN 325 MG TABLET (FP) PO PRN (21:27)
[2021-12-08] MEDS ORDERED: PIPERACILLIN/TAZOBACTAM 4.5 GM VIAL IVPB ONE ×3 (00:41→17:38)
[2021-12-08] MEDS ORDERED: SODIUM CHLORIDE 100 ML IVPB ONE ×3 (00:42→17:38)
[2021-12-08] MEDS: PIPERACILLIN/TAZOB 4.5 GM 4.5 GM in SODIUM CHLORIDE 100 ML IVPB SCH ×3 (01:04→17:43)
[2021-12-08] MEDS: INSULIN (LEVEMIR) 100 UNITS/ML UNITS SQ SCH ×2 (06:08→21:10)
[2021-12-08] MEDS: INSULIN (NOVOLOG) ASPART 100 UNITS/ML 10ML VIAL SQ SCH ×3 (06:08→17:49)
[2021-12-08] MEDS: INSULIN SLIDING SCALE (NOVOLOG) 1 VIAL SQ SCH ×4 (06:08→21:30)
[2021-12-08 08:50] LABS: BASO % 0.7 % (0-2.0); EOS % 2.1 % (0-4.5); HEMATOCRIT 28.9 % (32.4-45.2); LYMPH % 14.6 % (8-40); MCH 22.7 pg (25.7-33.7); MCHC 31.1 g/dl (32.0-36.0); MEAN CELL VOLUME 72.8 fl (80-96); MEAN PLT VOLUME 8.5 fl (7.5-11.1); MONO % 11.1 % (3.8-10.2); NEUT % 71.5 % (42.8-82.8); PLATELET COUNT 405 10^3/uL (134-434); RBC 3.97 M/mm3 (3.60-5.2); RDW 18.3 % (11.6-15.6); WHITE BLOOD COUNT 8.3 K/mm3 (4.0-10.0)
[2021-12-08 09:00] LABS: INR 1.13 (0.83-1.09)
[2021-12-08 09:03] LABS: ACTIVATED PTT 30.7 SECONDS (25.2-36.5)
[2021-12-08 09:06] LABS: CALCIUM 8.9 mg/dL (8.5-10.1)
[2021-12-08 09:07] LABS: ALBUMIN 2.2 g/dl (3.4-5.0); BLOOD UREA NITROGEN 15.8 mg/dL (7-18); MAGNESIUM 1.9 mg/dL (1.8-2.4)
[2021-12-08 09:10] LABS: CREATININE 0.5 mg/dL (0.55-1.3)
[2021-12-08 09:12] LABS: BILIRUBIN,TOTAL 0.4 mg/dL (0.2-1); TOT PROT 6.5 g/dl (6.4-8.2)
[2021-12-08] MEDS: VANCOMYCIN HCL 1,250 MG in SODIUM CHLORIDE 250 ML IVPB SCH (10:24)
[2021-12-08] MEDS: MULTIVITAMINS (DAILY MVI) TABLET (FP) PO SCH (10:25)
[2021-12-08] MEDS: CLOPIDOGREL BISULFATE 75 MG TABLET (FP) PO SCH (10:26)
[2021-12-08] MEDS: ZINC SULFATE 220 MG CAPSULE (FP) PO SCH (10:27)
[2021-12-08] MEDS: ASPIRIN COATED 81 MG TABLET.EC PO SCH (10:27)
[2021-12-08] MEDS: ASCORBIC ACID 500 MG TABLET (FP) PO SCH (10:27)
[2021-12-08] MEDS: AMINO ACIDS/PROTEIN HYDROLYS 30 ML LIQUID.PKT PO SCH ×2 (10:27→17:43)
[2021-12-08] MEDS: ENOXAPARIN NA (PORCINE) 40 MG/0.4 ML DISP.SYRIN SQ SCH (10:27)
[2021-12-08] MEDS: LISINOPRIL 10 MG TABLET PO SCH (12:38)
[2021-12-08] MEDS: FUROSEMIDE 20 MG TABLET (FP) PO SCH (12:38)
[2021-12-08] MEDS: CLINDAMYCIN 600MG PREMIX IVPB 600 MG/50 ML BAG IVPB SCH (20:47)
[2021-12-08] MEDS: ATORVASTATIN CA 80 MG TABLET (FP) PO SCH (21:09)
[2021-12-09] MEDS ORDERED: SODIUM CHLORIDE 100 ML IVPB ONE ×3 (01:29→17:02)
[2021-12-09] MEDS ORDERED: PIPERACILLIN/TAZOBACTAM 4.5 GM VIAL IVPB ONE ×3 (01:29→17:02)
[2021-12-09] MEDS: PIPERACILLIN/TAZOB 4.5 GM 4.5 GM in SODIUM CHLORIDE 100 ML IVPB SCH ×3 (01:45→19:43)
[2021-12-09] MEDS: CLINDAMYCIN 600MG PREMIX IVPB 600 MG/50 ML BAG IVPB SCH ×3 (02:55→19:02)
[2021-12-09] MEDS: INSULIN (LEVEMIR) 100 UNITS/ML UNITS SQ SCH ×2 (06:45→21:16)
[2021-12-09] MEDS: INSULIN SLIDING SCALE (NOVOLOG) 1 VIAL SQ SCH ×4 (06:45→21:15)
[2021-12-09] MEDS: AMINO ACIDS/PROTEIN HYDROLYS 30 ML LIQUID.PKT PO SCH ×2 (08:00→19:01)
[2021-12-09] MEDS: INSULIN (NOVOLOG) ASPART 100 UNITS/ML 10ML VIAL SQ SCH ×3 (08:01→19:01)
[2021-12-09] MEDS: ASPIRIN COATED 81 MG TABLET.EC PO SCH (10:08)
[2021-12-09] MEDS: ASCORBIC ACID 500 MG TABLET (FP) PO SCH (10:08)
[2021-12-09] MEDS: CLOPIDOGREL BISULFATE 75 MG TABLET (FP) PO SCH (10:08)
[2021-12-09] MEDS: ZINC SULFATE 220 MG CAPSULE (FP) PO SCH (10:08)
[2021-12-09] MEDS: FUROSEMIDE 20 MG TABLET (FP) PO SCH (10:09)
[2021-12-09] MEDS: LISINOPRIL 10 MG TABLET PO SCH (10:09)
[2021-12-09] MEDS: MULTIVITAMINS (DAILY MVI) TABLET (FP) PO SCH (10:09)
[2021-12-09] MEDS: ENOXAPARIN NA (PORCINE) 40 MG/0.4 ML DISP.SYRIN SQ SCH (10:11)
[2021-12-09] MEDS: VANCOMYCIN HCL 1,250 MG in SODIUM CHLORIDE 250 ML IVPB SCH (10:11)
[2021-12-09 10:50] LABS: EOS % 2.9 % (0-4.5); HEMATOCRIT 29.7 % (32.4-45.2); LYMPH % 15.6 % (8-40); MCH 22.4 pg (25.7-33.7); MCHC 30.5 g/dl (32.0-36.0); MEAN CELL VOLUME 73.6 fl (80-96); MEAN PLT VOLUME 8.9 fl (7.5-11.1); MONO % 8.6 % (3.8-10.2); NEUT % 71.9 % (42.8-82.8); PLATELET COUNT 425 10^3/uL (134-434); RBC 4.03 M/mm3 (3.60-5.2); RDW 17.8 % (11.6-15.6); WHITE BLOOD COUNT 7.6 K/mm3 (4.0-10.0)
[2021-12-09 11:03] LABS: INR 1.06 (0.83-1.09); PROTHROMBIN TIME (PATIENT) 12.2 SEC (9.7-13.0)
[2021-12-09 11:24] LABS: ALBUMIN 2.4 g/dl (3.4-5.0); BLOOD UREA NITROGEN 15.8 mg/dL (7-18)
[2021-12-09 11:27] LABS: CREATININE 0.5 mg/dL (0.55-1.3); PHOSPHOROUS 2.9 mg/dL (2.5-4.9)
[2021-12-09 11:29] LABS: BILIRUBIN,TOTAL 0.5 mg/dL (0.2-1); TOT PROT 6.9 g/dl (6.4-8.2)
[2021-12-09] MEDS: ATORVASTATIN CA 80 MG TABLET (FP) PO SCH (21:13)
[2021-12-10] MEDS ORDERED: PIPERACILLIN/TAZOBACTAM 4.5 GM VIAL IVPB ONE ×3 (01:03→17:23)
[2021-12-10] MEDS ORDERED: SODIUM CHLORIDE 100 ML IVPB ONE ×3 (01:03→17:23)
[2021-12-10] MEDS: CLINDAMYCIN 600MG PREMIX IVPB 600 MG/50 ML BAG IVPB SCH ×2 (02:04→10:26)
[2021-12-10] MEDS: PIPERACILLIN/TAZOB 4.5 GM 4.5 GM in SODIUM CHLORIDE 100 ML IVPB SCH ×3 (02:40→17:41)
[2021-12-10] MEDS: INSULIN (LEVEMIR) 100 UNITS/ML UNITS SQ SCH ×2 (06:41→21:31)
[2021-12-10] MEDS: INSULIN SLIDING SCALE (NOVOLOG) 1 VIAL SQ SCH ×4 (06:44→21:33)
[2021-12-10] MEDS: INSULIN (NOVOLOG) ASPART 100 UNITS/ML 10ML VIAL SQ SCH ×4 (08:27→19:01)
[2021-12-10] MEDS: AMINO ACIDS/PROTEIN HYDROLYS 30 ML LIQUID.PKT PO SCH ×2 (08:34→20:11)
[2021-12-10] MEDS: CLOPIDOGREL BISULFATE 75 MG TABLET (FP) PO SCH (09:03)
[2021-12-10] MEDS: MULTIVITAMINS (DAILY MVI) TABLET (FP) PO SCH (09:04)
[2021-12-10] MEDS: ASCORBIC ACID 500 MG TABLET (FP) PO SCH (09:04)
[2021-12-10] MEDS: FUROSEMIDE 20 MG TABLET (FP) PO SCH (09:04)
[2021-12-10] MEDS: ZINC SULFATE 220 MG CAPSULE (FP) PO SCH (09:04)
[2021-12-10] MEDS: LISINOPRIL 10 MG TABLET PO SCH (09:04)
[2021-12-10] MEDS: ENOXAPARIN NA (PORCINE) 40 MG/0.4 ML DISP.SYRIN SQ SCH (09:04)
[2021-12-10] MEDS: ASPIRIN COATED 81 MG TABLET.EC PO SCH (09:04)
[2021-12-10 10:03] LABS: BASO % 1.2 % (0-2.0); HEMATOCRIT 30.2 % (32.4-45.2); HEMOGLOBIN 9.3 GM/dL (10.7-15.3); LYMPH % 18.9 % (8-40); MCH 22.4 pg (25.7-33.7); MCHC 30.9 g/dl (32.0-36.0); MEAN CELL VOLUME 72.4 fl (80-96); MEAN PLT VOLUME 8.8 fl (7.5-11.1); MONO % 8.8 % (3.8-10.2); NEUT % 68.1 % (42.8-82.8); PLATELET COUNT 461 10^3/uL (134-434); RBC 4.17 M/mm3 (3.60-5.2); RDW 18.1 % (11.6-15.6); WHITE BLOOD COUNT 6.5 K/mm3 (4.0-10.0)
[2021-12-10 10:21] LABS: CALCIUM 8.7 mg/dL (8.5-10.1)
[2021-12-10 10:22] LABS: ALBUMIN 2.3 g/dl (3.4-5.0); BLOOD UREA NITROGEN 10.4 mg/dL (7-18)
[2021-12-10 10:25] LABS: CREATININE 0.5 mg/dL (0.55-1.3); PHOSPHOROUS 3.5 mg/dL (2.5-4.9)
[2021-12-10 10:26] LABS: TOT PROT 6.6 g/dl (6.4-8.2)
[2021-12-10 10:27] LABS: BILIRUBIN,TOTAL 0.3 mg/dL (0.2-1)
[2021-12-10] MEDS: VANCOMYCIN HCL 1,250 MG in SODIUM CHLORIDE 250 ML IVPB SCH (11:52)
[2021-12-10] MEDS: LACTOBACILLUS ACIDOPHILUS 1 TABLET PO SCH (14:10)
[2021-12-10] MEDS: ATORVASTATIN CA 80 MG TABLET (FP) PO SCH (21:32)
[2021-12-11] MEDS ORDERED: PIPERACILLIN/TAZOBACTAM 4.5 GM VIAL IVPB ONE ×4 (01:16→16:34)
[2021-12-11] MEDS ORDERED: SODIUM CHLORIDE 100 ML IVPB ONE ×4 (01:17→16:34)
[2021-12-11] MEDS: PIPERACILLIN/TAZOB 4.5 GM 4.5 GM in SODIUM CHLORIDE 100 ML IVPB SCH ×3 (01:55→16:59)
[2021-12-11] MEDS: INSULIN (LEVEMIR) 100 UNITS/ML UNITS SQ SCH ×2 (06:09→21:06)
[2021-12-11] MEDS: INSULIN (NOVOLOG) ASPART 100 UNITS/ML 10ML VIAL SQ SCH ×3 (06:10→17:06)
[2021-12-11] MEDS: INSULIN SLIDING SCALE (NOVOLOG) 1 VIAL SQ SCH ×4 (06:11→21:07)
[2021-12-11 09:45] LABS: BASO % 1.2 % (0-2.0); EOS % 2.5 % (0-4.5); HEMATOCRIT 29.4 % (32.4-45.2); HEMOGLOBIN 9.3 GM/dL (10.7-15.3); LYMPH % 16.6 % (8-40); MCH 23.1 pg (25.7-33.7); MCHC 31.7 g/dl (32.0-36.0); MEAN CELL VOLUME 72.9 fl (80-96); MEAN PLT VOLUME 8.4 fl (7.5-11.1); MONO % 9.3 % (3.8-10.2); NEUT % 70.4 % (42.8-82.8); PLATELET COUNT 485 10^3/uL (134-434); RBC 4.03 M/mm3 (3.60-5.2); RDW 18.2 % (11.6-15.6); WHITE BLOOD COUNT 7.8 K/mm3 (4.0-10.0)
[2021-12-11 10:03] LABS: CALCIUM 8.8 mg/dL (8.5-10.1)
[2021-12-11 10:04] LABS: ALBUMIN 2.3 g/dl (3.4-5.0); BLOOD UREA NITROGEN 12.1 mg/dL (7-18); MAGNESIUM 2.1 mg/dL (1.8-2.4)
[2021-12-11 10:07] LABS: BILIRUBIN,TOTAL 0.5 mg/dL (0.2-1); CREATININE 0.5 mg/dL (0.55-1.3); PHOSPHOROUS 3.2 mg/dL (2.5-4.9); TOT PROT 6.8 g/dl (6.4-8.2)
[2021-12-11] MEDS: LISINOPRIL 10 MG TABLET PO SCH (10:38)
[2021-12-11] MEDS: MULTIVITAMINS (DAILY MVI) TABLET (FP) PO SCH (10:38)
[2021-12-11] MEDS: ASCORBIC ACID 500 MG TABLET (FP) PO SCH (10:38)
[2021-12-11] MEDS: FUROSEMIDE 20 MG TABLET (FP) PO SCH (10:38)
[2021-12-11] MEDS: ASPIRIN COATED 81 MG TABLET.EC PO SCH (10:39)
[2021-12-11] MEDS: CLOPIDOGREL BISULFATE 75 MG TABLET (FP) PO SCH (10:39)
[2021-12-11] MEDS: AMINO ACIDS/PROTEIN HYDROLYS 30 ML LIQUID.PKT PO SCH ×2 (10:39→17:05)
[2021-12-11] MEDS: LACTOBACILLUS ACIDOPHILUS 1 TABLET PO SCH (10:39)
[2021-12-11] MEDS: ENOXAPARIN NA (PORCINE) 40 MG/0.4 ML DISP.SYRIN SQ SCH (10:40)
[2021-12-11] MEDS: ZINC SULFATE 220 MG CAPSULE (FP) PO SCH (10:40)
[2021-12-11] MEDS: VANCOMYCIN HCL 1,250 MG in SODIUM CHLORIDE 250 ML IVPB SCH (11:50)
[2021-12-11] MEDS: ATORVASTATIN CA 80 MG TABLET (FP) PO SCH (21:06)
[2021-12-12] MEDS ORDERED: PIPERACILLIN/TAZOBACTAM 4.5 GM VIAL IVPB ONE ×3 (01:25→18:35)
[2021-12-12] MEDS ORDERED: SODIUM CHLORIDE 100 ML IVPB ONE ×3 (01:25→18:35)
[2021-12-12] MEDS: PIPERACILLIN/TAZOB 4.5 GM 4.5 GM in SODIUM CHLORIDE 100 ML IVPB SCH ×3 (02:03→18:41)
[2021-12-12] MEDS: INSULIN (LEVEMIR) 100 UNITS/ML UNITS SQ SCH ×2 (06:09→22:02)
[2021-12-12] MEDS: INSULIN SLIDING SCALE (NOVOLOG) 1 VIAL SQ SCH ×4 (06:10→22:02)
[2021-12-12] MEDS: INSULIN (NOVOLOG) ASPART 100 UNITS/ML 10ML VIAL SQ SCH ×3 (06:11→18:40)
[2021-12-12] MEDS: AMINO ACIDS/PROTEIN HYDROLYS 30 ML LIQUID.PKT PO SCH ×2 (09:14→18:40)
[2021-12-12] MEDS: ENOXAPARIN NA (PORCINE) 40 MG/0.4 ML DISP.SYRIN SQ SCH (09:15)
[2021-12-12] MEDS: CLOPIDOGREL BISULFATE 75 MG TABLET (FP) PO SCH (09:15)
[2021-12-12] MEDS: ZINC SULFATE 220 MG CAPSULE (FP) PO SCH (09:15)
[2021-12-12] MEDS: LACTOBACILLUS ACIDOPHILUS 1 TABLET PO SCH (09:15)
[2021-12-12] MEDS: ASPIRIN COATED 81 MG TABLET.EC PO SCH (09:15)
[2021-12-12] MEDS: ASCORBIC ACID 500 MG TABLET (FP) PO SCH (09:15)
[2021-12-12] MEDS: MULTIVITAMINS (DAILY MVI) TABLET (FP) PO SCH (09:15)
[2021-12-12] MEDS: VANCOMYCIN HCL 1,250 MG in SODIUM CHLORIDE 250 ML IVPB SCH (09:17)
[2021-12-12 11:35] LABS: BASO % 1.3 % (0-2.0); EOS % 2.8 % (0-4.5); HEMATOCRIT 29.1 % (32.4-45.2); HEMOGLOBIN 8.9 GM/dL (10.7-15.3); LYMPH % 14.4 % (8-40); MCH 22.3 pg (25.7-33.7); MCHC 30.5 g/dl (32.0-36.0); MEAN CELL VOLUME 73.3 fl (80-96); MEAN PLT VOLUME 8.8 fl (7.5-11.1); MONO % 9.2 % (3.8-10.2); NEUT % 72.3 % (42.8-82.8); PLATELET COUNT 459 10^3/uL (134-434); RBC 3.97 M/mm3 (3.60-5.2); RDW 18.2 % (11.6-15.6); WHITE BLOOD COUNT 6.4 K/mm3 (4.0-10.0)
[2021-12-12] MEDS: LISINOPRIL 10 MG TABLET PO SCH (12:17)
[2021-12-12] MEDS: FUROSEMIDE 20 MG TABLET (FP) PO SCH (12:29)
[2021-12-12 12:44] LABS: ALBUMIN 2.3 g/dl (3.4-5.0); BLOOD UREA NITROGEN 12.4 mg/dL (7-18)
[2021-12-12 12:45] LABS: CALCIUM 8.8 mg/dL (8.5-10.1); MAGNESIUM 2.2 mg/dL (1.8-2.4)
[2021-12-12 12:47] LABS: CREATININE 0.5 mg/dL (0.55-1.3); PHOSPHOROUS 3.5 mg/dL (2.5-4.9)
[2021-12-12 12:49] LABS: BILIRUBIN,TOTAL 0.3 mg/dL (0.2-1); TOT PROT 6.4 g/dl (6.4-8.2)
[2021-12-12] MEDS: LISINOPRIL 20 MG TABLET PO SCH (21:48)
[2021-12-12] MEDS: ATORVASTATIN CA 80 MG TABLET (FP) PO SCH (21:48)
[2021-12-13] MEDS ORDERED: PIPERACILLIN/TAZOBACTAM 4.5 GM VIAL IVPB ONE ×3 (01:06→18:02)
[2021-12-13] MEDS ORDERED: SODIUM CHLORIDE 100 ML IVPB ONE ×3 (01:06→18:02)
[2021-12-13] MEDS: PIPERACILLIN/TAZOB 4.5 GM 4.5 GM in SODIUM CHLORIDE 100 ML IVPB SCH ×3 (01:58→18:11)
[2021-12-13] MEDS: INSULIN SLIDING SCALE (NOVOLOG) 1 VIAL SQ SCH ×4 (06:02→22:00)
[2021-12-13 06:08] LABS: ANTI-DNAse B 263 U/mL (0-120)
[2021-12-13] MEDS ORDERED: INSULIN (LEVEMIR) 100 UNITS/ML UNITS SQ ONE (07:00)
[2021-12-13] MEDS: AMINO ACIDS/PROTEIN HYDROLYS 30 ML LIQUID.PKT PO SCH ×2 (09:33→17:31)
[2021-12-13] MEDS: ASCORBIC ACID 500 MG TABLET (FP) PO SCH (09:34)
[2021-12-13] MEDS: FUROSEMIDE 20 MG TABLET (FP) PO SCH (09:34)
[2021-12-13] MEDS: ASPIRIN COATED 81 MG TABLET.EC PO SCH (09:34)
[2021-12-13] MEDS: ZINC SULFATE 220 MG CAPSULE (FP) PO SCH (09:34)
[2021-12-13] MEDS: CLOPIDOGREL BISULFATE 75 MG TABLET (FP) PO SCH (09:35)
[2021-12-13] MEDS: MULTIVITAMINS (DAILY MVI) TABLET (FP) PO SCH (09:36)
[2021-12-13] MEDS: LACTOBACILLUS ACIDOPHILUS 1 TABLET PO SCH (09:39)
[2021-12-13] MEDS: VANCOMYCIN HCL 1,250 MG in SODIUM CHLORIDE 250 ML IVPB SCH (09:40)
[2021-12-13 11:01] LABS: BASO % 1.2 % (0-2.0); EOS % 2.5 % (0-4.5); HEMATOCRIT 30.3 % (32.4-45.2); HEMOGLOBIN 9.4 GM/dL (10.7-15.3); MCH 22.6 pg (25.7-33.7); MCHC 30.9 g/dl (32.0-36.0); MEAN CELL VOLUME 73.3 fl (80-96); MEAN PLT VOLUME 8.8 fl (7.5-11.1); MONO % 10.2 % (3.8-10.2); NEUT % 71.1 % (42.8-82.8); PLATELET COUNT 489 10^3/uL (134-434); RBC 4.13 M/mm3 (3.60-5.2); RDW 17.9 % (11.6-15.6); WHITE BLOOD COUNT 6.8 K/mm3 (4.0-10.0)
[2021-12-13 11:32] LABS: CALCIUM 9.2 mg/dL (8.5-10.1)
[2021-12-13 11:33] LABS: ALBUMIN 2.6 g/dl (3.4-5.0); BLOOD UREA NITROGEN 12.1 mg/dL (7-18); MAGNESIUM 2.3 mg/dL (1.8-2.4)
[2021-12-13 11:35] LABS: CREATININE 0.4 mg/dL (0.55-1.3)
[2021-12-13 11:37] LABS: BILIRUBIN,TOTAL 0.4 mg/dL (0.2-1); PHOSPHOROUS 3.3 mg/dL (2.5-4.9)
[2021-12-13] MEDS ORDERED: LIDOCAINE HCL 1%, 10 MG/ML (20ML VIAL) ONE (16:09)
[2021-12-13] MEDS ORDERED: HEPARIN NA (PORCINE) 5,000 UNITS/ML 1ML VIAL ONE (16:10)
[2021-12-13] MEDS: INSULIN (NOVOLOG) ASPART 100 UNITS/ML 10ML VIAL SQ SCH (17:31)
[2021-12-13] MEDS: ACETAMINOPHEN 325 MG TABLET (FP) PO PRN (20:09)
[2021-12-13] MEDS: INSULIN (LEVEMIR) 100 UNITS/ML UNITS SQ SCH (21:59)
[2021-12-13] MEDS: LISINOPRIL 20 MG TABLET PO SCH (22:02)
[2021-12-13] MEDS: ATORVASTATIN CA 80 MG TABLET (FP) PO SCH (22:02)
[2021-12-14] MEDS ORDERED: SODIUM CHLORIDE 100 ML IVPB ONE ×3 (01:55→16:48)
[2021-12-14] MEDS ORDERED: PIPERACILLIN/TAZOBACTAM 4.5 GM VIAL IVPB ONE ×3 (01:55→16:48)
[2021-12-14] MEDS: PIPERACILLIN/TAZOB 4.5 GM 4.5 GM in SODIUM CHLORIDE 100 ML IVPB SCH ×3 (02:02→17:08)
[2021-12-14] MEDS: INSULIN (NOVOLOG) ASPART 100 UNITS/ML 10ML VIAL SQ SCH ×3 (06:52→17:07)
[2021-12-14] MEDS: INSULIN SLIDING SCALE (NOVOLOG) 1 VIAL SQ SCH ×4 (06:52→22:06)
[2021-12-14] MEDS: INSULIN (LEVEMIR) 100 UNITS/ML UNITS SQ SCH ×2 (06:53→22:05)
[2021-12-14] MEDS: AMINO ACIDS/PROTEIN HYDROLYS 30 ML LIQUID.PKT PO SCH ×2 (09:39→17:08)
[2021-12-14] MEDS: ASCORBIC ACID 500 MG TABLET (FP) PO SCH (09:40)
[2021-12-14] MEDS: MULTIVITAMINS (DAILY MVI) TABLET (FP) PO SCH (09:40)
[2021-12-14] MEDS: LACTOBACILLUS ACIDOPHILUS 1 TABLET PO SCH (09:40)
[2021-12-14] MEDS: ZINC SULFATE 220 MG CAPSULE (FP) PO SCH (09:40)
[2021-12-14] MEDS: ASPIRIN COATED 81 MG TABLET.EC PO SCH (09:40)
[2021-12-14] MEDS: CLOPIDOGREL BISULFATE 75 MG TABLET (FP) PO SCH (09:40)
[2021-12-14] MEDS: VANCOMYCIN HCL 1,250 MG in SODIUM CHLORIDE 250 ML IVPB SCH (09:40)
[2021-12-14] MEDS: FUROSEMIDE 20 MG TABLET (FP) PO SCH (09:40)
[2021-12-14] MEDS: ENOXAPARIN NA (PORCINE) 40 MG/0.4 ML DISP.SYRIN SQ SCH (09:40)
[2021-12-14 12:36] LABS: BASO % 1.2 % (0-2.0); EOS % 2.3 % (0-4.5); HEMATOCRIT 28.2 % (32.4-45.2); HEMOGLOBIN 8.7 GM/dL (10.7-15.3); LYMPH % 15.7 % (8-40); MCH 22.7 pg (25.7-33.7); MCHC 30.8 g/dl (32.0-36.0); MEAN CELL VOLUME 73.5 fl (80-96); MEAN PLT VOLUME 8.6 fl (7.5-11.1); MONO % 10.2 % (3.8-10.2); NEUT % 70.6 % (42.8-82.8); PLATELET COUNT 447 10^3/uL (134-434); RBC 3.84 M/mm3 (3.60-5.2); RDW 18.1 % (11.6-15.6); WHITE BLOOD COUNT 5.9 K/mm3 (4.0-10.0)
[2021-12-14 13:35] LABS: CALCIUM 8.6 mg/dL (8.5-10.1)
[2021-12-14 13:36] LABS: ALBUMIN 2.4 g/dl (3.4-5.0); MAGNESIUM 2.2 mg/dL (1.8-2.4)
[2021-12-14 13:39] LABS: CREATININE 0.4 mg/dL (0.55-1.3); PHOSPHOROUS 3.2 mg/dL (2.5-4.9)
[2021-12-14 13:42] LABS: BILIRUBIN,TOTAL 0.3 mg/dL (0.2-1); TOT PROT 6.4 g/dl (6.4-8.2)
[2021-12-14] MEDS: ATORVASTATIN CA 80 MG TABLET (FP) PO SCH (22:05)
[2021-12-14] MEDS: LISINOPRIL 20 MG TABLET PO SCH (22:05)
[2021-12-15] MEDS ORDERED: SODIUM CHLORIDE 100 ML IVPB ONE ×3 (01:22→18:02)
[2021-12-15] MEDS ORDERED: PIPERACILLIN/TAZOBACTAM 4.5 GM VIAL IVPB ONE ×3 (01:22→18:02)
[2021-12-15] MEDS: PIPERACILLIN/TAZOB 4.5 GM 4.5 GM in SODIUM CHLORIDE 100 ML IVPB SCH ×3 (01:26→18:50)
[2021-12-15] MEDS: INSULIN (LEVEMIR) 100 UNITS/ML UNITS SQ SCH ×2 (06:23→22:15)
[2021-12-15] MEDS: INSULIN SLIDING SCALE (NOVOLOG) 1 VIAL SQ SCH ×4 (06:23→22:15)
[2021-12-15] MEDS: INSULIN (NOVOLOG) ASPART 100 UNITS/ML 10ML VIAL SQ SCH ×3 (06:24→18:50)
[2021-12-15] MEDS: AMINO ACIDS/PROTEIN HYDROLYS 30 ML LIQUID.PKT PO SCH ×2 (10:00→18:50)
[2021-12-15 10:37] LABS: EOS % 2.3 % (0-4.5); HEMATOCRIT 30.8 % (32.4-45.2); HEMOGLOBIN 9.5 GM/dL (10.7-15.3); LYMPH % 21.3 % (8-40); MCH 22.7 pg (25.7-33.7); MCHC 30.9 g/dl (32.0-36.0); MEAN CELL VOLUME 73.4 fl (80-96); MEAN PLT VOLUME 8.4 fl (7.5-11.1); MONO % 8.7 % (3.8-10.2); NEUT % 66.7 % (42.8-82.8); PLATELET COUNT 608 10^3/uL (134-434); RBC 4.19 M/mm3 (3.60-5.2); RDW 18.1 % (11.6-15.6); WHITE BLOOD COUNT 8.2 K/mm3 (4.0-10.0)
[2021-12-15 11:00] LABS: CALCIUM 9.1 mg/dL (8.5-10.1)
[2021-12-15 11:01] LABS: ALBUMIN 2.6 g/dl (3.4-5.0); BLOOD UREA NITROGEN 13.6 mg/dL (7-18); MAGNESIUM 2.2 mg/dL (1.8-2.4)
[2021-12-15 11:04] LABS: CREATININE 0.4 mg/dL (0.55-1.3); PHOSPHOROUS 3.2 mg/dL (2.5-4.9)
[2021-12-15 11:05] LABS: BILIRUBIN,TOTAL 0.5 mg/dL (0.2-1); TOT PROT 7.3 g/dl (6.4-8.2)
[2021-12-15] MEDS: CLOPIDOGREL BISULFATE 75 MG TABLET (FP) PO SCH (12:18)
[2021-12-15] MEDS: ZINC SULFATE 220 MG CAPSULE (FP) PO SCH (12:18)
[2021-12-15] MEDS: LACTOBACILLUS ACIDOPHILUS 1 TABLET PO SCH (12:19)
[2021-12-15] MEDS: ASPIRIN COATED 81 MG TABLET.EC PO SCH (12:19)
[2021-12-15] MEDS: FUROSEMIDE 20 MG TABLET (FP) PO SCH (12:19)
[2021-12-15] MEDS: ENOXAPARIN NA (PORCINE) 40 MG/0.4 ML DISP.SYRIN SQ SCH (12:20)
[2021-12-15] MEDS: ASCORBIC ACID 500 MG TABLET (FP) PO SCH (12:20)
[2021-12-15] MEDS: VANCOMYCIN HCL 1,250 MG in SODIUM CHLORIDE 250 ML IVPB SCH (12:20)
[2021-12-15] MEDS: MULTIVITAMINS (DAILY MVI) TABLET (FP) PO SCH (12:20)
[2021-12-15] MEDS: LISINOPRIL 20 MG TABLET PO SCH (22:15)
[2021-12-15] MEDS: ATORVASTATIN CA 80 MG TABLET (FP) PO SCH (22:15)
[2021-12-16] MEDS ORDERED: PIPERACILLIN/TAZOBACTAM 4.5 GM VIAL IVPB ONE ×3 (01:41→17:21)
[2021-12-16] MEDS ORDERED: SODIUM CHLORIDE 100 ML IVPB ONE ×3 (01:42→17:21)
[2021-12-16] MEDS: PIPERACILLIN/TAZOB 4.5 GM 4.5 GM in SODIUM CHLORIDE 100 ML IVPB SCH ×3 (01:45→17:24)
[2021-12-16] MEDS: INSULIN (LEVEMIR) 100 UNITS/ML UNITS SQ SCH ×2 (06:21→22:24)
[2021-12-16] MEDS: INSULIN (NOVOLOG) ASPART 100 UNITS/ML 10ML VIAL SQ SCH ×3 (06:22→16:43)
[2021-12-16] MEDS: INSULIN SLIDING SCALE (NOVOLOG) 1 VIAL SQ SCH ×4 (06:22→22:25)
[2021-12-16] MEDS: ENOXAPARIN NA (PORCINE) 40 MG/0.4 ML DISP.SYRIN SQ SCH (09:11)
[2021-12-16] MEDS: AMINO ACIDS/PROTEIN HYDROLYS 30 ML LIQUID.PKT PO SCH ×2 (09:13→17:24)
[2021-12-16] MEDS: ZINC SULFATE 220 MG CAPSULE (FP) PO SCH (09:14)
[2021-12-16] MEDS: ASPIRIN COATED 81 MG TABLET.EC PO SCH (09:14)
[2021-12-16] MEDS: CLOPIDOGREL BISULFATE 75 MG TABLET (FP) PO SCH (09:14)
[2021-12-16] MEDS: ASCORBIC ACID 500 MG TABLET (FP) PO SCH (09:14)
[2021-12-16] MEDS: VANCOMYCIN HCL 1,250 MG in SODIUM CHLORIDE 250 ML IVPB SCH (09:14)
[2021-12-16] MEDS: FUROSEMIDE 20 MG TABLET (FP) PO SCH (09:14)
[2021-12-16] MEDS: LACTOBACILLUS ACIDOPHILUS 1 TABLET PO SCH (09:14)
[2021-12-16] MEDS: MULTIVITAMINS (DAILY MVI) TABLET (FP) PO SCH (09:14)
[2021-12-16 11:52] LABS: BASO % 1.4 % (0-2.0); EOS % 2.5 % (0-4.5); HEMOGLOBIN 8.9 GM/dL (10.7-15.3); LYMPH % 20.7 % (8-40); MCH 22.4 pg (25.7-33.7); MCHC 30.6 g/dl (32.0-36.0); MEAN CELL VOLUME 73.3 fl (80-96); MEAN PLT VOLUME 8.5 fl (7.5-11.1); MONO % 9.4 % (3.8-10.2); PLATELET COUNT 468 10^3/uL (134-434); RBC 3.95 M/mm3 (3.60-5.2); WHITE BLOOD COUNT 5.4 K/mm3 (4.0-10.0)
[2021-12-16 12:18] LABS: ALBUMIN 2.6 g/dl (3.4-5.0); CALCIUM 8.8 mg/dL (8.5-10.1); MAGNESIUM 2.1 mg/dL (1.8-2.4)
[2021-12-16 12:19] LABS: BLOOD UREA NITROGEN 15.6 mg/dL (7-18)
[2021-12-16 12:21] LABS: PHOSPHOROUS 3.1 mg/dL (2.5-4.9)
[2021-12-16 12:22] LABS: CREATININE 0.5 mg/dL (0.55-1.3)
[2021-12-16 12:23] LABS: BILIRUBIN,TOTAL 0.4 mg/dL (0.2-1)
[2021-12-16] MEDS: ATORVASTATIN CA 80 MG TABLET (FP) PO SCH (22:25)
[2021-12-16] MEDS: LISINOPRIL 20 MG TABLET PO SCH (22:26)
[2021-12-17] MEDS ORDERED: PIPERACILLIN/TAZOBACTAM 4.5 GM VIAL IVPB ONE ×3 (01:00→16:47)
[2021-12-17] MEDS ORDERED: SODIUM CHLORIDE 100 ML IVPB ONE ×3 (01:00→16:47)
[2021-12-17] MEDS: PIPERACILLIN/TAZOB 4.5 GM 4.5 GM in SODIUM CHLORIDE 100 ML IVPB SCH ×3 (02:06→17:32)
[2021-12-17] MEDS: INSULIN SLIDING SCALE (NOVOLOG) 1 VIAL SQ SCH ×4 (06:39→21:25)
[2021-12-17] MEDS: INSULIN (NOVOLOG) ASPART 100 UNITS/ML 10ML VIAL SQ SCH ×3 (07:20→16:57)
[2021-12-17] MEDS: INSULIN (LEVEMIR) 100 UNITS/ML UNITS SQ SCH ×2 (07:20→21:24)
[2021-12-17] MEDS: AMINO ACIDS/PROTEIN HYDROLYS 30 ML LIQUID.PKT PO SCH ×2 (08:24→16:57)
[2021-12-17 09:02] LABS: BASO % 1.1 % (0-2.0); EOS % 3.1 % (0-4.5); HEMATOCRIT 28.3 % (32.4-45.2); HEMOGLOBIN 8.7 GM/dL (10.7-15.3); LYMPH % 22.1 % (8-40); MCH 22.3 pg (25.7-33.7); MCHC 30.7 g/dl (32.0-36.0); MEAN CELL VOLUME 72.7 fl (80-96); MEAN PLT VOLUME 8.3 fl (7.5-11.1); MONO % 7.9 % (3.8-10.2); NEUT % 65.8 % (42.8-82.8); PLATELET COUNT 427 10^3/uL (134-434); RBC 3.89 M/mm3 (3.60-5.2); RDW 17.9 % (11.6-15.6); WHITE BLOOD COUNT 5.1 K/mm3 (4.0-10.0)
[2021-12-17] MEDS: ASCORBIC ACID 500 MG TABLET (FP) PO SCH (09:26)
[2021-12-17] MEDS: CLOPIDOGREL BISULFATE 75 MG TABLET (FP) PO SCH (09:26)
[2021-12-17] MEDS: MULTIVITAMINS (DAILY MVI) TABLET (FP) PO SCH (09:26)
[2021-12-17] MEDS: ASPIRIN COATED 81 MG TABLET.EC PO SCH (09:26)
[2021-12-17] MEDS: FUROSEMIDE 20 MG TABLET (FP) PO SCH (09:26)
[2021-12-17] MEDS: ZINC SULFATE 220 MG CAPSULE (FP) PO SCH (09:26)
[2021-12-17] MEDS: LACTOBACILLUS ACIDOPHILUS 1 TABLET PO SCH (09:26)
[2021-12-17] MEDS: VANCOMYCIN HCL 1,250 MG in SODIUM CHLORIDE 250 ML IVPB SCH (09:27)
[2021-12-17] MEDS: ENOXAPARIN NA (PORCINE) 40 MG/0.4 ML DISP.SYRIN SQ SCH (09:27)
[2021-12-17 09:33] LABS: ALBUMIN 2.4 g/dl (3.4-5.0); BILIRUBIN,TOTAL 0.4 mg/dL (0.2-1); BLOOD UREA NITROGEN 13.8 mg/dL (7-18); CALCIUM 8.6 mg/dL (8.5-10.1); CREATININE 0.4 mg/dL (0.55-1.3); PHOSPHOROUS 3.6 mg/dL (2.5-4.9); TOT PROT 6.7 g/dl (6.4-8.2)
[2021-12-17] MEDS: ATORVASTATIN CA 80 MG TABLET (FP) PO SCH (21:23)
[2021-12-17] MEDS: LISINOPRIL 20 MG TABLET PO SCH (21:23)
[2021-12-18] MEDS ORDERED: SODIUM CHLORIDE 100 ML IVPB ONE ×3 (01:29→16:12)
[2021-12-18] MEDS ORDERED: PIPERACILLIN/TAZOBACTAM 4.5 GM VIAL IVPB ONE ×3 (01:29→16:12)
[2021-12-18] MEDS: PIPERACILLIN/TAZOB 4.5 GM 4.5 GM in SODIUM CHLORIDE 100 ML IVPB SCH ×3 (01:54→17:12)
[2021-12-18] MEDS: INSULIN (LEVEMIR) 100 UNITS/ML UNITS SQ SCH ×2 (06:54→21:25)
[2021-12-18] MEDS: INSULIN SLIDING SCALE (NOVOLOG) 1 VIAL SQ SCH ×4 (06:54→21:25)
[2021-12-18] MEDS: INSULIN (NOVOLOG) ASPART 100 UNITS/ML 10ML VIAL SQ SCH ×3 (06:55→16:42)
[2021-12-18] MEDS: ENOXAPARIN NA (PORCINE) 40 MG/0.4 ML DISP.SYRIN SQ SCH (09:28)
[2021-12-18] MEDS: AMINO ACIDS/PROTEIN HYDROLYS 30 ML LIQUID.PKT PO SCH ×2 (09:28→16:42)
[2021-12-18] MEDS: ZINC SULFATE 220 MG CAPSULE (FP) PO SCH (09:29)
[2021-12-18] MEDS: MULTIVITAMINS (DAILY MVI) TABLET (FP) PO SCH (09:29)
[2021-12-18] MEDS: CLOPIDOGREL BISULFATE 75 MG TABLET (FP) PO SCH (09:29)
[2021-12-18] MEDS: FUROSEMIDE 20 MG TABLET (FP) PO SCH (09:29)
[2021-12-18] MEDS: ASCORBIC ACID 500 MG TABLET (FP) PO SCH (09:29)
[2021-12-18] MEDS: ASPIRIN COATED 81 MG TABLET.EC PO SCH (09:29)
[2021-12-18] MEDS: LACTOBACILLUS ACIDOPHILUS 1 TABLET PO SCH (09:32)
[2021-12-18] MEDS: VANCOMYCIN HCL 1,250 MG in SODIUM CHLORIDE 250 ML IVPB SCH (10:41)
[2021-12-18 10:56] LABS: BASO % 1.3 % (0-2.0); EOS % 3.6 % (0-4.5); HEMATOCRIT 29.4 % (32.4-45.2); HEMOGLOBIN 8.9 GM/dL (10.7-15.3); LYMPH % 22.5 % (8-40); MCH 22.2 pg (25.7-33.7); MCHC 30.5 g/dl (32.0-36.0); MEAN CELL VOLUME 72.8 fl (80-96); MEAN PLT VOLUME 8.6 fl (7.5-11.1); MONO % 9.6 % (3.8-10.2); PLATELET COUNT 405 10^3/uL (134-434); RBC 4.03 M/mm3 (3.60-5.2); RDW 18.1 % (11.6-15.6); WHITE BLOOD COUNT 4.6 K/mm3 (4.0-10.0)
[2021-12-18 11:27] LABS: CALCIUM 9.1 mg/dL (8.5-10.1)
[2021-12-18 11:28] LABS: ALBUMIN 2.5 g/dl (3.4-5.0); BLOOD UREA NITROGEN 11.7 mg/dL (7-18); MAGNESIUM 2.1 mg/dL (1.8-2.4)
[2021-12-18 11:31] LABS: CREATININE 0.4 mg/dL (0.55-1.3)
[2021-12-18 11:32] LABS: BILIRUBIN,TOTAL 0.4 mg/dL (0.2-1); TOT PROT 6.8 g/dl (6.4-8.2)
[2021-12-18] MEDS: ATORVASTATIN CA 80 MG TABLET (FP) PO SCH (21:25)
[2021-12-18] MEDS: LISINOPRIL 20 MG TABLET PO SCH (21:25)
[2021-12-19] MEDS ORDERED: PIPERACILLIN/TAZOBACTAM 4.5 GM VIAL IVPB ONE ×3 (01:03→18:00)
[2021-12-19] MEDS ORDERED: SODIUM CHLORIDE 100 ML IVPB ONE ×3 (01:03→18:00)
[2021-12-19] MEDS: PIPERACILLIN/TAZOB 4.5 GM 4.5 GM in SODIUM CHLORIDE 100 ML IVPB SCH ×3 (01:07→18:09)
[2021-12-19] MEDS: ACETAMINOPHEN 325 MG TABLET (FP) PO PRN (06:29)
[2021-12-19] MEDS: INSULIN SLIDING SCALE (NOVOLOG) 1 VIAL SQ SCH ×4 (06:34→21:54)
[2021-12-19] MEDS: INSULIN (NOVOLOG) ASPART 100 UNITS/ML 10ML VIAL SQ SCH ×3 (06:34→17:58)
[2021-12-19] MEDS: INSULIN (LEVEMIR) 100 UNITS/ML UNITS SQ SCH ×2 (06:34→21:53)
[2021-12-19] MEDS: ZINC SULFATE 220 MG CAPSULE (FP) PO SCH (10:32)
[2021-12-19] MEDS: ASCORBIC ACID 500 MG TABLET (FP) PO SCH (10:32)
[2021-12-19] MEDS: ASPIRIN COATED 81 MG TABLET.EC PO SCH (10:33)
[2021-12-19] MEDS: MULTIVITAMINS (DAILY MVI) TABLET (FP) PO SCH (10:33)
[2021-12-19] MEDS: LACTOBACILLUS ACIDOPHILUS 1 TABLET PO SCH (10:33)
[2021-12-19] MEDS: CLOPIDOGREL BISULFATE 75 MG TABLET (FP) PO SCH (10:33)
[2021-12-19] MEDS: AMINO ACIDS/PROTEIN HYDROLYS 30 ML LIQUID.PKT PO SCH ×2 (10:33→18:09)
[2021-12-19] MEDS: FUROSEMIDE 20 MG TABLET (FP) PO SCH (10:33)
[2021-12-19] MEDS: ENOXAPARIN NA (PORCINE) 40 MG/0.4 ML DISP.SYRIN SQ SCH (10:34)
[2021-12-19 11:47] LABS: BASO % 1.1 % (0-2.0); HEMATOCRIT 30.3 % (32.4-45.2); HEMOGLOBIN 9.1 GM/dL (10.7-15.3); MCH 22.1 pg (25.7-33.7); MCHC 30.2 g/dl (32.0-36.0); MEAN CELL VOLUME 73.2 fl (80-96); MEAN PLT VOLUME 8.8 fl (7.5-11.1); MONO % 10.3 % (3.8-10.2); NEUT % 67.6 % (42.8-82.8); PLATELET COUNT 405 10^3/uL (134-434); RBC 4.13 M/mm3 (3.60-5.2); RDW 18.1 % (11.6-15.6); WHITE BLOOD COUNT 5.2 K/mm3 (4.0-10.0)
[2021-12-19 12:06] LABS: BLOOD UREA NITROGEN 16.2 mg/dL (7-18); CALCIUM 9.2 mg/dL (8.5-10.1)
[2021-12-19 12:07] LABS: ALBUMIN 2.6 g/dl (3.4-5.0)
[2021-12-19 12:09] LABS: CREATININE 0.4 mg/dL (0.55-1.3); PHOSPHOROUS 3.3 mg/dL (2.5-4.9)
[2021-12-19 12:10] LABS: TOT PROT 7.2 g/dl (6.4-8.2)
[2021-12-19 12:11] LABS: BILIRUBIN,TOTAL 0.5 mg/dL (0.2-1)
[2021-12-19] MEDS: VANCOMYCIN HCL 1,250 MG in SODIUM CHLORIDE 250 ML IVPB SCH (12:27)
[2021-12-19] MEDS: ATORVASTATIN CA 80 MG TABLET (FP) PO SCH (21:57)
[2021-12-19] MEDS: LISINOPRIL 20 MG TABLET PO SCH (21:58)
[2021-12-19] MEDS: VANCOMYCIN/WATER FOR INJ (PEG) 1,000 MG/200 ML BAG IVPB SCH (22:08)
[2021-12-20] MEDS ORDERED: PIPERACILLIN/TAZOBACTAM 4.5 GM VIAL IVPB ONE ×3 (00:33→17:36)
[2021-12-20] MEDS ORDERED: SODIUM CHLORIDE 100 ML IVPB ONE ×3 (00:33→17:36)
[2021-12-20] MEDS: PIPERACILLIN/TAZOB 4.5 GM 4.5 GM in SODIUM CHLORIDE 100 ML IVPB SCH ×3 (03:34→17:37)
[2021-12-20] MEDS: INSULIN SLIDING SCALE (NOVOLOG) 1 VIAL SQ SCH ×4 (07:21→23:18)
[2021-12-20] MEDS: INSULIN (NOVOLOG) ASPART 100 UNITS/ML 10ML VIAL SQ SCH ×3 (07:22→17:48)
[2021-12-20] MEDS: INSULIN (LEVEMIR) 100 UNITS/ML UNITS SQ SCH ×2 (07:25→23:14)
[2021-12-20] MEDS: MULTIVITAMINS (DAILY MVI) TABLET (FP) PO SCH (09:16)
[2021-12-20] MEDS: ENOXAPARIN NA (PORCINE) 40 MG/0.4 ML DISP.SYRIN SQ SCH (09:16)
[2021-12-20] MEDS: ASPIRIN COATED 81 MG TABLET.EC PO SCH (09:16)
[2021-12-20] MEDS: AMINO ACIDS/PROTEIN HYDROLYS 30 ML LIQUID.PKT PO SCH ×2 (09:16→17:44)
[2021-12-20] MEDS: CLOPIDOGREL BISULFATE 75 MG TABLET (FP) PO SCH (09:16)
[2021-12-20] MEDS: FUROSEMIDE 20 MG TABLET (FP) PO SCH (09:16)
[2021-12-20] MEDS: LACTOBACILLUS ACIDOPHILUS 1 TABLET PO SCH (09:16)
[2021-12-20] MEDS: ZINC SULFATE 220 MG CAPSULE (FP) PO SCH (09:16)
[2021-12-20] MEDS: ASCORBIC ACID 500 MG TABLET (FP) PO SCH (09:24)
[2021-12-20 11:07] LABS: BASO % 1.3 % (0-2.0); EOS % 3.3 % (0-4.5); HEMOGLOBIN 8.9 GM/dL (10.7-15.3); LYMPH % 17.5 % (8-40); MCH 22.2 pg (25.7-33.7); MCHC 30.6 g/dl (32.0-36.0); MEAN CELL VOLUME 72.6 fl (80-96); MEAN PLT VOLUME 8.5 fl (7.5-11.1); MONO % 9.6 % (3.8-10.2); NEUT % 68.3 % (42.8-82.8); PLATELET COUNT 345 10^3/uL (134-434); RDW 17.8 % (11.6-15.6); WHITE BLOOD COUNT 4.8 K/mm3 (4.0-10.0)
[2021-12-20] MEDS ORDERED: INSULIN SLIDING SCALE (NOVOLOG) 1 VIAL SQ ONE (11:22)
[2021-12-20] MEDS: VANCOMYCIN/WATER FOR INJ (PEG) 1,000 MG/200 ML BAG IVPB SCH ×2 (11:41→22:13)
[2021-12-20 13:34] LABS: ALBUMIN 2.6 g/dl (3.4-5.0); BLOOD UREA NITROGEN 14.8 mg/dL (7-18); MAGNESIUM 2.1 mg/dL (1.8-2.4)
[2021-12-20 13:37] LABS: CREATININE 0.6 mg/dL (0.55-1.3); PHOSPHOROUS 3.5 mg/dL (2.5-4.9)
[2021-12-20 13:38] LABS: BILIRUBIN,TOTAL 0.4 mg/dL (0.2-1); TOT PROT 6.9 g/dl (6.4-8.2)
[2021-12-20] MEDS: LISINOPRIL 20 MG TABLET PO SCH (22:13)
[2021-12-20] MEDS: ATORVASTATIN CA 80 MG TABLET (FP) PO SCH (22:13)
[2021-12-20] MEDS ORDERED: INSULIN (LEVEMIR) 100 UNITS/ML UNITS SQ SCH (23:15)
[2021-12-21] MEDS ORDERED: PIPERACILLIN/TAZOBACTAM 4.5 GM VIAL IVPB ONE ×4 (02:10→21:38)
[2021-12-21] MEDS ORDERED: SODIUM CHLORIDE 100 ML IVPB ONE ×3 (02:10→21:38)
[2021-12-21] MEDS: PIPERACILLIN/TAZOB 4.5 GM 4.5 GM in SODIUM CHLORIDE 100 ML IVPB SCH ×2 (02:37→17:30)
[2021-12-21] MEDS ORDERED: INSULIN (LEVEMIR) 100 UNITS/ML UNITS SQ ONE (05:55)
[2021-12-21] MEDS: INSULIN SLIDING SCALE (NOVOLOG) 1 VIAL SQ SCH ×4 (06:19→23:01)
[2021-12-21] MEDS: INSULIN (NOVOLOG) ASPART 100 UNITS/ML 10ML VIAL SQ SCH ×2 (06:19→17:32)
[2021-12-21] MEDS ORDERED: PROPOFOL 20 ML ONE ×2 (07:24)
[2021-12-21] MEDS ORDERED: KETAMINE HCL 200 MG/20 ML VIAL ONE (07:25)
[2021-12-21] MEDS ORDERED: MIDAZOLAM HCL 2 MG/2 ML SINGLE DOSE VIAL ONE (07:25)
[2021-12-21] MEDS ORDERED: LIDOCAINE HCL 2% 100 MG/5 ML DISP.SYRIN ONE (07:28)
[2021-12-21] MEDS ORDERED: VANCOMYCIN 1,000 MG VIAL (RESTRICTED TO ID ONLY) ONE (10:26)
[2021-12-21] MEDS ORDERED: VANCOMYCIN 1,000 MG VIAL (RESTRICTED TO ID ONLY) IVPB ONE (10:30)
[2021-12-21] MEDS ORDERED: INSULIN (NOVOLOG) ASPART 100 UNITS/ML 10ML VIAL SQ SCH (11:00)
[2021-12-21 12:13] LABS: BASO % 0.9 % (0-2.0); HEMATOCRIT 27.1 % (32.4-45.2); HEMOGLOBIN 8.2 GM/dL (10.7-15.3); LYMPH % 23.3 % (8-40); MCH 21.7 pg (25.7-33.7); MCHC 30.1 g/dl (32.0-36.0); MEAN CELL VOLUME 72.1 fl (80-96); MEAN PLT VOLUME 8.1 fl (7.5-11.1); MONO % 9.1 % (3.8-10.2); NEUT % 64.7 % (42.8-82.8); PLATELET COUNT 302 10^3/uL (134-434); RBC 3.75 M/mm3 (3.60-5.2); RDW 17.9 % (11.6-15.6); WHITE BLOOD COUNT 4.4 K/mm3 (4.0-10.0)
[2021-12-21 12:52] LABS: ANISOCYTOSIS 3+; MACROCYTOSIS 0
[2021-12-21 13:29] LABS: BLOOD UREA NITROGEN 14.6 mg/dL (7-18)
[2021-12-21 13:30] LABS: ALBUMIN 2.6 g/dl (3.4-5.0); MAGNESIUM 1.8 mg/dL (1.8-2.4)
[2021-12-21 13:31] LABS: CALCIUM 8.8 mg/dL (8.5-10.1)
[2021-12-21 13:32] LABS: PHOSPHOROUS 3.8 mg/dL (2.5-4.9)
[2021-12-21 13:33] LABS: BILIRUBIN,TOTAL 0.4 mg/dL (0.2-1); CREATININE 0.5 mg/dL (0.55-1.3); TOT PROT 6.4 g/dl (6.4-8.2)
[2021-12-21] MEDS: VANCOMYCIN/WATER FOR INJ (PEG) 1,000 MG/200 ML BAG IVPB SCH ×3 (14:43→23:00)
[2021-12-21] MEDS: AMINO ACIDS/PROTEIN HYDROLYS 30 ML LIQUID.PKT PO SCH ×2 (16:59→17:31)
[2021-12-21] MEDS: LACTOBACILLUS ACIDOPHILUS 1 TABLET PO SCH (17:07)
[2021-12-21] MEDS: ASPIRIN COATED 81 MG TABLET.EC PO SCH (17:08)
[2021-12-21] MEDS: FUROSEMIDE 20 MG TABLET (FP) PO SCH (17:08)
[2021-12-21] MEDS: ENOXAPARIN NA (PORCINE) 40 MG/0.4 ML DISP.SYRIN SQ SCH (17:09)
[2021-12-21] MEDS: CLOPIDOGREL BISULFATE 75 MG TABLET (FP) PO SCH (17:09)
[2021-12-21] MEDS: ZINC SULFATE 220 MG CAPSULE (FP) PO SCH (17:09)
[2021-12-21] MEDS: MULTIVITAMINS (DAILY MVI) TABLET (FP) PO SCH (17:10)
[2021-12-21] MEDS ORDERED: INSULIN (LEVEMIR) 100 UNITS/ML UNITS SQ SCH (22:00)
[2021-12-21] MEDS: INSULIN (LEVEMIR) 100 UNITS/ML UNITS SQ SCH (22:58)
[2021-12-21] MEDS: ATORVASTATIN CA 80 MG TABLET (FP) PO SCH (22:59)
[2021-12-21] MEDS: oxyCODONE HCL 5 MG TABLET PO PRN (22:59)
[2021-12-21] MEDS: LISINOPRIL 20 MG TABLET PO SCH (22:59)
[2021-12-22] MEDS ORDERED: PIPERACILLIN/TAZOBACTAM 4.5 GM VIAL IVPB ONE ×3 (02:09→18:57)
[2021-12-22] MEDS ORDERED: SODIUM CHLORIDE 100 ML IVPB ONE ×3 (02:09→18:57)
[2021-12-22] MEDS: PIPERACILLIN/TAZOB 4.5 GM 4.5 GM in SODIUM CHLORIDE 100 ML IVPB SCH ×4 (02:36→19:05)
[2021-12-22] MEDS: oxyCODONE HCL 5 MG TABLET PO PRN ×3 (02:43→19:05)
[2021-12-22] MEDS: INSULIN (NOVOLOG) ASPART 100 UNITS/ML 10ML VIAL SQ SCH ×3 (06:02→17:02)
[2021-12-22] MEDS: INSULIN (LEVEMIR) 100 UNITS/ML UNITS SQ SCH ×2 (06:02→21:49)
[2021-12-22] MEDS: INSULIN SLIDING SCALE (NOVOLOG) 1 VIAL SQ SCH ×4 (06:02→21:48)
[2021-12-22 08:34] LABS: BASO % 0.9 % (0-2.0); EOS % 1.7 % (0-4.5); HEMATOCRIT 24.7 % (32.4-45.2); HEMOGLOBIN 7.5 GM/dL (10.7-15.3); LYMPH % 12.7 % (8-40); MCH 21.9 pg (25.7-33.7); MCHC 30.3 g/dl (32.0-36.0); MEAN CELL VOLUME 72.5 fl (80-96); MONO % 10.6 % (3.8-10.2); NEUT % 74.1 % (42.8-82.8); PLATELET COUNT 288 10^3/uL (134-434); RBC 3.41 M/mm3 (3.60-5.2); WHITE BLOOD COUNT 7.5 K/mm3 (4.0-10.0)
[2021-12-22] MEDS: AMINO ACIDS/PROTEIN HYDROLYS 30 ML LIQUID.PKT PO SCH ×2 (08:35→17:05)
[2021-12-22 08:44] LABS: CALCIUM 8.8 mg/dL (8.5-10.1); PHOSPHOROUS 2.6 mg/dL (2.5-4.9)
[2021-12-22 08:45] LABS: ALBUMIN 2.6 g/dl (3.4-5.0); BLOOD UREA NITROGEN 19.5 mg/dL (7-18); MAGNESIUM 1.8 mg/dL (1.8-2.4)
[2021-12-22 08:46] LABS: BILIRUBIN,TOTAL 0.4 mg/dL (0.2-1); TOT PROT 6.6 g/dl (6.4-8.2)
[2021-12-22 08:47] LABS: CREATININE 0.5 mg/dL (0.55-1.3)
[2021-12-22] MEDS ORDERED: HYDROmorphone HCl 2 MG/ML VIAL IM PRN (09:40)
[2021-12-22] MEDS: ENOXAPARIN NA (PORCINE) 40 MG/0.4 ML DISP.SYRIN SQ SCH (09:41)
[2021-12-22] MEDS: VANCOMYCIN/WATER FOR INJ (PEG) 1,000 MG/200 ML BAG IVPB SCH ×2 (09:41→23:31)
[2021-12-22] MEDS: LACTOBACILLUS ACIDOPHILUS 1 TABLET PO SCH (09:42)
[2021-12-22] MEDS: FUROSEMIDE 40 MG TABLET (FP) PO SCH (09:42)
[2021-12-22] MEDS: ASPIRIN COATED 81 MG TABLET.EC PO SCH (09:42)
[2021-12-22] MEDS: ASCORBIC ACID 500 MG TABLET (FP) PO SCH (09:42)
[2021-12-22] MEDS: CLOPIDOGREL BISULFATE 75 MG TABLET (FP) PO SCH (09:42)
[2021-12-22] MEDS: MULTIVITAMINS (DAILY MVI) TABLET (FP) PO SCH (09:42)
[2021-12-22] MEDS: ZINC SULFATE 220 MG CAPSULE (FP) PO SCH (09:42)
[2021-12-22] MEDS ORDERED: INSULIN SLIDING SCALE (NOVOLOG) 1 VIAL SQ ONE (12:01)
[2021-12-22] MEDS ORDERED: DOCUSATE SODIUM 100 MG CAPSULE (FP) PO PRN (14:28)
[2021-12-22] MEDS ORDERED: DOCUSATE SODIUM 100 MG CAPSULE (FP) PO ONE (15:00)
[2021-12-22] MEDS: HYDROmorphone HCl 2 MG/ML VIAL IM SCH ×2 (15:28→21:35)
[2021-12-22] MEDS: ACETAMINOPHEN 325 MG TABLET (FP) PO PRN (21:49)
[2021-12-22] MEDS: ATORVASTATIN CA 80 MG TABLET (FP) PO SCH (21:50)
[2021-12-22] MEDS: LISINOPRIL 20 MG TABLET PO SCH (21:50)
[2021-12-23] MEDS ORDERED: PIPERACILLIN/TAZOBACTAM 4.5 GM VIAL IVPB ONE ×3 (01:39→16:49)
[2021-12-23] MEDS ORDERED: SODIUM CHLORIDE 100 ML IVPB ONE ×3 (01:39→16:49)
[2021-12-23] MEDS: PIPERACILLIN/TAZOB 4.5 GM 4.5 GM in SODIUM CHLORIDE 100 ML IVPB SCH ×3 (02:08→17:03)
[2021-12-23] MEDS: oxyCODONE HCL 5 MG TABLET PO PRN (06:09)
[2021-12-23] MEDS: HYDROmorphone HCl 2 MG/ML VIAL IM SCH ×4 (06:09→23:09)
[2021-12-23] MEDS: INSULIN (LEVEMIR) 100 UNITS/ML UNITS SQ SCH ×2 (06:20→21:49)
[2021-12-23] MEDS: INSULIN (NOVOLOG) ASPART 100 UNITS/ML 10ML VIAL SQ SCH ×3 (06:22→17:02)
[2021-12-23] MEDS: INSULIN SLIDING SCALE (NOVOLOG) 1 VIAL SQ SCH ×4 (06:22→21:49)
[2021-12-23] MEDS: ENOXAPARIN NA (PORCINE) 40 MG/0.4 ML DISP.SYRIN SQ SCH (09:46)
[2021-12-23] MEDS: AMINO ACIDS/PROTEIN HYDROLYS 30 ML LIQUID.PKT PO SCH ×2 (09:46→17:03)
[2021-12-23] MEDS: ASPIRIN COATED 81 MG TABLET.EC PO SCH (09:48)
[2021-12-23] MEDS: FUROSEMIDE 40 MG TABLET (FP) PO SCH (09:48)
[2021-12-23] MEDS: CLOPIDOGREL BISULFATE 75 MG TABLET (FP) PO SCH (09:48)
[2021-12-23] MEDS: MULTIVITAMINS (DAILY MVI) TABLET (FP) PO SCH (09:48)
[2021-12-23] MEDS: LACTOBACILLUS ACIDOPHILUS 1 TABLET PO SCH (09:48)
[2021-12-23] MEDS: ZINC SULFATE 220 MG CAPSULE (FP) PO SCH (09:48)
[2021-12-23] MEDS: ASCORBIC ACID 500 MG TABLET (FP) PO SCH (09:48)
[2021-12-23] MEDS: VANCOMYCIN/WATER FOR INJ (PEG) 1,000 MG/200 ML BAG IVPB SCH ×2 (09:49→23:13)
[2021-12-23 10:54] LABS: BASO % 0.7 % (0-2.0); HEMOGLOBIN 7.2 GM/dL (10.7-15.3); LYMPH % 13.7 % (8-40); MCH 21.7 pg (25.7-33.7); MCHC 30.1 g/dl (32.0-36.0); MEAN CELL VOLUME 72.2 fl (80-96); MEAN PLT VOLUME 9.2 fl (7.5-11.1); MONO % 10.9 % (3.8-10.2); NEUT % 73.7 % (42.8-82.8); PLATELET COUNT 288 10^3/uL (134-434); RBC 3.33 M/mm3 (3.60-5.2); WHITE BLOOD COUNT 7.8 K/mm3 (4.0-10.0)
[2021-12-23 11:14] LABS: ALBUMIN 2.6 g/dl (3.4-5.0); BLOOD UREA NITROGEN 22.5 mg/dL (7-18); CALCIUM 9.1 mg/dL (8.5-10.1)
[2021-12-23 11:17] LABS: CREATININE 0.5 mg/dL (0.55-1.3); PHOSPHOROUS 2.6 mg/dL (2.5-4.9)
[2021-12-23 11:19] LABS: BILIRUBIN,TOTAL 0.4 mg/dL (0.2-1); TOT PROT 6.8 g/dl (6.4-8.2)
[2021-12-23 20:10] LABS: EOS % 1.5 % (0-4.5); HEMATOCRIT 24.4 % (32.4-45.2); HEMOGLOBIN 7.5 GM/dL (10.7-15.3); LYMPH % 17.7 % (8-40); MCH 22.6 pg (25.7-33.7); MEAN CELL VOLUME 72.9 fl (80-96); MEAN PLT VOLUME 8.6 fl (7.5-11.1); MONO % 11.9 % (3.8-10.2); NEUT % 67.9 % (42.8-82.8); PLATELET COUNT 227 10^3/uL (134-434); RBC 3.34 M/mm3 (3.60-5.2); RDW 18.5 % (11.6-15.6); WHITE BLOOD COUNT 7.4 K/mm3 (4.0-10.0)
[2021-12-23] MEDS: LISINOPRIL 20 MG TABLET PO SCH (21:50)
[2021-12-23] MEDS: ATORVASTATIN CA 80 MG TABLET (FP) PO SCH (21:50)
[2021-12-24] MEDS ORDERED: PIPERACILLIN/TAZOBACTAM 4.5 GM VIAL IVPB ONE ×2 (01:21→09:40)
[2021-12-24] MEDS ORDERED: SODIUM CHLORIDE 100 ML IVPB ONE ×2 (01:21→09:40)
[2021-12-24] MEDS: PIPERACILLIN/TAZOB 4.5 GM 4.5 GM in SODIUM CHLORIDE 100 ML IVPB SCH ×2 (01:32→09:56)
[2021-12-24] MEDS ORDERED: ACETAMINOPHEN 1000 MG/100 ML BAG IVPB ONE (03:43)
[2021-12-24] MEDS: HYDROmorphone HCl 2 MG/ML VIAL IM SCH ×4 (06:00→22:35)
[2021-12-24] MEDS: INSULIN (LEVEMIR) 100 UNITS/ML UNITS SQ SCH ×2 (06:18→22:26)
[2021-12-24] MEDS: INSULIN SLIDING SCALE (NOVOLOG) 1 VIAL SQ SCH ×4 (06:18→22:25)
[2021-12-24] MEDS: INSULIN (NOVOLOG) ASPART 100 UNITS/ML 10ML VIAL SQ SCH ×3 (06:19→17:27)
[2021-12-24] MEDS: AMINO ACIDS/PROTEIN HYDROLYS 30 ML LIQUID.PKT PO SCH ×2 (08:32→17:23)
[2021-12-24] MEDS: FUROSEMIDE 40 MG TABLET (FP) PO SCH (09:50)
[2021-12-24] MEDS: MULTIVITAMINS (DAILY MVI) TABLET (FP) PO SCH (09:50)
[2021-12-24] MEDS: ASCORBIC ACID 500 MG TABLET (FP) PO SCH (09:50)
[2021-12-24] MEDS: ZINC SULFATE 220 MG CAPSULE (FP) PO SCH (09:51)
[2021-12-24] MEDS: LACTOBACILLUS ACIDOPHILUS 1 TABLET PO SCH (09:51)
[2021-12-24] MEDS: VANCOMYCIN/WATER FOR INJ (PEG) 1,000 MG/200 ML BAG IVPB SCH (11:27)
[2021-12-24] MEDS ORDERED: INSULIN SLIDING SCALE (NOVOLOG) 1 VIAL SQ ONE (11:37)
[2021-12-24] MEDS: ASPIRIN COATED 81 MG TABLET.EC PO SCH (11:38)
[2021-12-24] MEDS: CLOPIDOGREL BISULFATE 75 MG TABLET (FP) PO SCH (11:38)
[2021-12-24] MEDS: oxyCODONE HCL 5 MG TABLET PO PRN ×2 (15:27→22:30)
[2021-12-24 15:56] LABS: BASO % 0.7 % (0-2.0); EOS % 2.8 % (0-4.5); HEMATOCRIT 30.9 % (32.4-45.2); HEMOGLOBIN 9.6 GM/dL (10.7-15.3); LYMPH % 14.6 % (8-40); MCH 23.2 pg (25.7-33.7); MCHC 31.1 g/dl (32.0-36.0); MEAN CELL VOLUME 74.5 fl (80-96); MEAN PLT VOLUME 9.2 fl (7.5-11.1); NEUT % 71.9 % (42.8-82.8); PLATELET COUNT 275 10^3/uL (134-434); RBC 4.15 M/mm3 (3.60-5.2); RDW 19.1 % (11.6-15.6); WHITE BLOOD COUNT 6.8 K/mm3 (4.0-10.0)
[2021-12-24 16:18] LABS: CALCIUM 8.6 mg/dL (8.5-10.1)
[2021-12-24 16:19] LABS: ALBUMIN 2.5 g/dl (3.4-5.0)
[2021-12-24 16:22] LABS: CREATININE 0.5 mg/dL (0.55-1.3); PHOSPHOROUS 2.2 mg/dL (2.5-4.9)
[2021-12-24 16:23] LABS: BILIRUBIN,TOTAL 0.5 mg/dL (0.2-1); TOT PROT 6.9 g/dl (6.4-8.2)
[2021-12-24] MEDS: ENOXAPARIN NA (PORCINE) 40 MG/0.4 ML DISP.SYRIN SQ SCH (16:57)
[2021-12-24] MEDS: ATORVASTATIN CA 80 MG TABLET (FP) PO SCH (22:20)
[2021-12-24] MEDS: LISINOPRIL 20 MG TABLET PO SCH (22:20)
[2021-12-25] MEDS: HYDROmorphone HCl 2 MG/ML VIAL IM SCH ×4 (03:04→22:35)
[2021-12-25] MEDS: INSULIN SLIDING SCALE (NOVOLOG) 1 VIAL SQ SCH ×4 (06:03→22:36)
[2021-12-25] MEDS: INSULIN (LEVEMIR) 100 UNITS/ML UNITS SQ SCH ×2 (06:03→23:04)
[2021-12-25] MEDS: INSULIN (NOVOLOG) ASPART 100 UNITS/ML 10ML VIAL SQ SCH ×3 (06:04→17:34)
[2021-12-25] MEDS ORDERED: INSULIN (LEVEMIR) 100 UNITS/ML UNITS SQ ONE (08:15)
[2021-12-25] MEDS: ASCORBIC ACID 500 MG TABLET (FP) PO SCH (09:42)
[2021-12-25] MEDS: LACTOBACILLUS ACIDOPHILUS 1 TABLET PO SCH (09:42)
[2021-12-25] MEDS: ASPIRIN COATED 81 MG TABLET.EC PO SCH (09:42)
[2021-12-25] MEDS: ZINC SULFATE 220 MG CAPSULE (FP) PO SCH (09:42)
[2021-12-25] MEDS: FUROSEMIDE 40 MG TABLET (FP) PO SCH (09:42)
[2021-12-25] MEDS: MULTIVITAMINS (DAILY MVI) TABLET (FP) PO SCH (09:42)
[2021-12-25] MEDS: CLOPIDOGREL BISULFATE 75 MG TABLET (FP) PO SCH (09:42)
[2021-12-25] MEDS: AMINO ACIDS/PROTEIN HYDROLYS 30 ML LIQUID.PKT PO SCH ×2 (09:42→17:39)
[2021-12-25] MEDS: ENOXAPARIN NA (PORCINE) 40 MG/0.4 ML DISP.SYRIN SQ SCH (09:43)
[2021-12-25 10:08] LABS: EOS % 3.6 % (0-4.5); HEMATOCRIT 29.2 % (32.4-45.2); HEMOGLOBIN 9.2 GM/dL (10.7-15.3); MCH 23.3 pg (25.7-33.7); MCHC 31.6 g/dl (32.0-36.0); MEAN CELL VOLUME 73.7 fl (80-96); MEAN PLT VOLUME 8.8 fl (7.5-11.1); MONO % 9.8 % (3.8-10.2); NEUT % 64.6 % (42.8-82.8); PLATELET COUNT 259 10^3/uL (134-434); RBC 3.96 M/mm3 (3.60-5.2); RDW 19.2 % (11.6-15.6); WHITE BLOOD COUNT 5.2 K/mm3 (4.0-10.0)
[2021-12-25 10:43] LABS: ALBUMIN 2.4 g/dl (3.4-5.0); BLOOD UREA NITROGEN 11.8 mg/dL (7-18); MAGNESIUM 2.1 mg/dL (1.8-2.4)
[2021-12-25 10:46] LABS: CREATININE 0.4 mg/dL (0.55-1.3); PHOSPHOROUS 2.4 mg/dL (2.5-4.9)
[2021-12-25 10:47] LABS: BILIRUBIN,TOTAL 0.5 mg/dL (0.2-1); TOT PROT 6.8 g/dl (6.4-8.2)
[2021-12-25] MEDS ORDERED: NAPH,MB-DB/K PH,MBDB POWDER PACKET PO ONE (15:33)
[2021-12-25] MEDS: oxyCODONE HCL 5 MG TABLET PO PRN (17:42)
[2021-12-25 20:21] VITALS: BMI 26.6
[2021-12-25] MEDS: ATORVASTATIN CA 80 MG TABLET (FP) PO SCH (22:34)
[2021-12-25] MEDS: LISINOPRIL 20 MG TABLET PO SCH (22:34)
[2021-12-26] MEDS: HYDROmorphone HCl 2 MG/ML VIAL IM SCH ×4 (04:30→22:26)
[2021-12-26] MEDS: INSULIN (LEVEMIR) 100 UNITS/ML UNITS SQ SCH ×2 (06:15→22:29)
[2021-12-26] MEDS: INSULIN SLIDING SCALE (NOVOLOG) 1 VIAL SQ SCH ×4 (06:16→22:29)
[2021-12-26] MEDS: INSULIN (NOVOLOG) ASPART 100 UNITS/ML 10ML VIAL SQ SCH ×3 (06:17→16:29)
[2021-12-26] MEDS: ACETAMINOPHEN 325 MG TABLET (FP) PO PRN (06:44)
[2021-12-26 09:41] LABS: HEMATOCRIT 31.4 % (32.4-45.2); HEMOGLOBIN 9.7 GM/dL (10.7-15.3); MCHC 30.8 g/dl (32.0-36.0); MEAN CELL VOLUME 74.7 fl (80-96); PLATELET COUNT 238 10^3/uL (134-434); RDW 19.4 % (11.6-15.6); WHITE BLOOD COUNT 3.7 K/mm3 (4.0-10.0)
[2021-12-26 09:57] LABS: BLOOD UREA NITROGEN 15.5 mg/dL (7-18)
[2021-12-26 10:01] LABS: CREATININE 0.4 mg/dL (0.55-1.3)
[2021-12-26] MEDS: ENOXAPARIN NA (PORCINE) 40 MG/0.4 ML DISP.SYRIN SQ SCH (11:02)
[2021-12-26] MEDS: ASPIRIN COATED 81 MG TABLET.EC PO SCH (11:03)
[2021-12-26] MEDS: LACTOBACILLUS ACIDOPHILUS 1 TABLET PO SCH (11:03)
[2021-12-26] MEDS: FUROSEMIDE 40 MG TABLET (FP) PO SCH (11:03)
[2021-12-26] MEDS: ZINC SULFATE 220 MG CAPSULE (FP) PO SCH (11:03)
[2021-12-26] MEDS: MULTIVITAMINS (DAILY MVI) TABLET (FP) PO SCH (11:03)
[2021-12-26] MEDS: CLOPIDOGREL BISULFATE 75 MG TABLET (FP) PO SCH (11:03)
[2021-12-26] MEDS: ASCORBIC ACID 500 MG TABLET (FP) PO SCH (11:03)
[2021-12-26] MEDS: AMINO ACIDS/PROTEIN HYDROLYS 30 ML LIQUID.PKT PO SCH ×2 (11:04→19:11)
[2021-12-26] MEDS: ATORVASTATIN CA 80 MG TABLET (FP) PO SCH (22:30)
[2021-12-26] MEDS: LISINOPRIL 20 MG TABLET PO SCH (22:30)
[2021-12-27] MEDS: HYDROmorphone HCl 2 MG/ML VIAL IM SCH ×4 (05:07→20:39)
[2021-12-27] MEDS: INSULIN (LEVEMIR) 100 UNITS/ML UNITS SQ SCH ×2 (06:18→23:02)
[2021-12-27] MEDS: INSULIN SLIDING SCALE (NOVOLOG) 1 VIAL SQ SCH ×4 (06:19→23:00)
[2021-12-27] MEDS: INSULIN (NOVOLOG) ASPART 100 UNITS/ML 10ML VIAL SQ SCH ×3 (06:20→18:13)
[2021-12-27] MEDS: ACETAMINOPHEN 325 MG TABLET (FP) PO PRN (07:46)
[2021-12-27] MEDS: AMINO ACIDS/PROTEIN HYDROLYS 30 ML LIQUID.PKT PO SCH ×2 (07:48→18:14)
[2021-12-27] MEDS: ASPIRIN COATED 81 MG TABLET.EC PO SCH (09:49)
[2021-12-27] MEDS: ZINC SULFATE 220 MG CAPSULE (FP) PO SCH (09:49)
[2021-12-27] MEDS: ASCORBIC ACID 500 MG TABLET (FP) PO SCH (09:49)
[2021-12-27] MEDS: MULTIVITAMINS (DAILY MVI) TABLET (FP) PO SCH (09:50)
[2021-12-27] MEDS: ENOXAPARIN NA (PORCINE) 40 MG/0.4 ML DISP.SYRIN SQ SCH (09:50)
[2021-12-27] MEDS: CLOPIDOGREL BISULFATE 75 MG TABLET (FP) PO SCH (09:50)
[2021-12-27] MEDS: FUROSEMIDE 40 MG TABLET (FP) PO SCH (09:50)
[2021-12-27] MEDS: LACTOBACILLUS ACIDOPHILUS 1 TABLET PO SCH (09:50)
[2021-12-27] MEDS: ATORVASTATIN CA 80 MG TABLET (FP) PO SCH (22:59)
[2021-12-27] MEDS: LISINOPRIL 20 MG TABLET PO SCH (23:00)
[2021-12-28] MEDS: HYDROmorphone HCl 2 MG/ML VIAL IM SCH ×2 (05:17→13:12)
[2021-12-28] MEDS: INSULIN (LEVEMIR) 100 UNITS/ML UNITS SQ SCH ×2 (06:28→22:04)
[2021-12-28] MEDS: INSULIN SLIDING SCALE (NOVOLOG) 1 VIAL SQ SCH ×4 (06:33→22:05)
[2021-12-28] MEDS: INSULIN (NOVOLOG) ASPART 100 UNITS/ML 10ML VIAL SQ SCH ×3 (06:33→17:57)
[2021-12-28 09:54] LABS: BASO % 1.1 % (0-2.0); EOS % 4.2 % (0-4.5); HEMATOCRIT 31.8 % (32.4-45.2); HEMOGLOBIN 9.9 GM/dL (10.7-15.3); LYMPH % 19.9 % (8-40); MCHC 31.1 g/dl (32.0-36.0); MEAN CELL VOLUME 74.1 fl (80-96); MEAN PLT VOLUME 8.6 fl (7.5-11.1); MONO % 8.3 % (3.8-10.2); NEUT % 66.5 % (42.8-82.8); PLATELET COUNT 249 10^3/uL (134-434); RDW 19.8 % (11.6-15.6); WHITE BLOOD COUNT 4.8 K/mm3 (4.0-10.0)
[2021-12-28] MEDS: ENOXAPARIN NA (PORCINE) 40 MG/0.4 ML DISP.SYRIN SQ SCH (09:54)
[2021-12-28] MEDS: ZINC SULFATE 220 MG CAPSULE (FP) PO SCH (09:54)
[2021-12-28] MEDS: LACTOBACILLUS ACIDOPHILUS 1 TABLET PO SCH (09:54)
[2021-12-28] MEDS: MULTIVITAMINS (DAILY MVI) TABLET (FP) PO SCH (09:54)
[2021-12-28] MEDS: CLOPIDOGREL BISULFATE 75 MG TABLET (FP) PO SCH (09:54)
[2021-12-28] MEDS: ASCORBIC ACID 500 MG TABLET (FP) PO SCH (09:55)
[2021-12-28] MEDS: FUROSEMIDE 40 MG TABLET (FP) PO SCH (09:55)
[2021-12-28] MEDS: ASPIRIN COATED 81 MG TABLET.EC PO SCH (09:55)
[2021-12-28] MEDS: AMINO ACIDS/PROTEIN HYDROLYS 30 ML LIQUID.PKT PO SCH ×2 (09:55→17:58)
[2021-12-28 10:24] LABS: CALCIUM 9.1 mg/dL (8.5-10.1)
[2021-12-28 10:25] LABS: BLOOD UREA NITROGEN 15.1 mg/dL (7-18)
[2021-12-28 10:28] LABS: CREATININE 0.4 mg/dL (0.55-1.3)
[2021-12-28] MEDS: ATORVASTATIN CA 80 MG TABLET (FP) PO SCH (22:04)
[2021-12-28] MEDS: LISINOPRIL 20 MG TABLET PO SCH (22:04)
[2021-12-29] MEDS: INSULIN (LEVEMIR) 100 UNITS/ML UNITS SQ SCH ×2 (06:39→22:22)
[2021-12-29] MEDS: INSULIN SLIDING SCALE (NOVOLOG) 1 VIAL SQ SCH ×4 (06:40→22:23)
[2021-12-29] MEDS: INSULIN (NOVOLOG) ASPART 100 UNITS/ML 10ML VIAL SQ SCH ×3 (06:43→16:35)
[2021-12-29] MEDS: AMINO ACIDS/PROTEIN HYDROLYS 30 ML LIQUID.PKT PO SCH ×2 (08:19→17:14)
[2021-12-29] MEDS: ASCORBIC ACID 500 MG TABLET (FP) PO SCH (09:27)
[2021-12-29] MEDS: LACTOBACILLUS ACIDOPHILUS 1 TABLET PO SCH (09:28)
[2021-12-29] MEDS: CLOPIDOGREL BISULFATE 75 MG TABLET (FP) PO SCH (09:28)
[2021-12-29] MEDS: MULTIVITAMINS (DAILY MVI) TABLET (FP) PO SCH (09:28)
[2021-12-29] MEDS: FUROSEMIDE 40 MG TABLET (FP) PO SCH (09:28)
[2021-12-29] MEDS: ZINC SULFATE 220 MG CAPSULE (FP) PO SCH (09:28)
[2021-12-29] MEDS: ENOXAPARIN NA (PORCINE) 40 MG/0.4 ML DISP.SYRIN SQ SCH (09:28)
[2021-12-29] MEDS: ASPIRIN COATED 81 MG TABLET.EC PO SCH (09:28)
[2021-12-29] MEDS: ATORVASTATIN CA 80 MG TABLET (FP) PO SCH (22:24)
[2021-12-29] MEDS: LISINOPRIL 20 MG TABLET PO SCH (22:24)
[2021-12-30] MEDS: INSULIN SLIDING SCALE (NOVOLOG) 1 VIAL SQ SCH ×4 (06:09→21:28)
[2021-12-30] MEDS: INSULIN (NOVOLOG) ASPART 100 UNITS/ML 10ML VIAL SQ SCH ×3 (06:17→16:59)
[2021-12-30] MEDS: INSULIN (LEVEMIR) 100 UNITS/ML UNITS SQ SCH ×2 (06:17→21:29)
[2021-12-30] MEDS: ACETAMINOPHEN 325 MG TABLET (FP) PO PRN (06:22)
[2021-12-30] MEDS: MULTIVITAMINS (DAILY MVI) TABLET (FP) PO SCH (09:09)
[2021-12-30] MEDS: ASCORBIC ACID 500 MG TABLET (FP) PO SCH (09:10)
[2021-12-30] MEDS: CLOPIDOGREL BISULFATE 75 MG TABLET (FP) PO SCH (09:10)
[2021-12-30] MEDS: ASPIRIN COATED 81 MG TABLET.EC PO SCH (09:10)
[2021-12-30] MEDS: ZINC SULFATE 220 MG CAPSULE (FP) PO SCH (09:10)
[2021-12-30] MEDS: LACTOBACILLUS ACIDOPHILUS 1 TABLET PO SCH (09:10)
[2021-12-30] MEDS: FUROSEMIDE 40 MG TABLET (FP) PO SCH (09:11)
[2021-12-30] MEDS: ENOXAPARIN NA (PORCINE) 40 MG/0.4 ML DISP.SYRIN SQ SCH (09:11)
[2021-12-30] MEDS: AMINO ACIDS/PROTEIN HYDROLYS 30 ML LIQUID.PKT PO SCH ×2 (09:11→16:57)
[2021-12-30] MEDS: LISINOPRIL 20 MG TABLET PO SCH (21:27)
[2021-12-30] MEDS: ATORVASTATIN CA 80 MG TABLET (FP) PO SCH (21:27)
[2021-12-31] MEDS: INSULIN (LEVEMIR) 100 UNITS/ML UNITS SQ SCH ×2 (06:19→21:43)
[2021-12-31] MEDS: INSULIN SLIDING SCALE (NOVOLOG) 1 VIAL SQ SCH ×4 (06:20→21:43)
[2021-12-31] MEDS: INSULIN (NOVOLOG) ASPART 100 UNITS/ML 10ML VIAL SQ SCH ×3 (06:20→17:14)
[2021-12-31] MEDS: AMINO ACIDS/PROTEIN HYDROLYS 30 ML LIQUID.PKT PO SCH ×2 (09:04→17:15)
[2021-12-31] MEDS: CLOPIDOGREL BISULFATE 75 MG TABLET (FP) PO SCH (10:05)
[2021-12-31] MEDS: ENOXAPARIN NA (PORCINE) 40 MG/0.4 ML DISP.SYRIN SQ SCH (10:05)
[2021-12-31] MEDS: ZINC SULFATE 220 MG CAPSULE (FP) PO SCH (10:05)
[2021-12-31] MEDS: LACTOBACILLUS ACIDOPHILUS 1 TABLET PO SCH (10:05)
[2021-12-31] MEDS: ASPIRIN COATED 81 MG TABLET.EC PO SCH (10:05)
[2021-12-31] MEDS: ASCORBIC ACID 500 MG TABLET (FP) PO SCH (10:05)
[2021-12-31] MEDS: MULTIVITAMINS (DAILY MVI) TABLET (FP) PO SCH (10:05)
[2021-12-31] MEDS: FUROSEMIDE 40 MG TABLET (FP) PO SCH (10:05)
[2021-12-31] MEDS: LISINOPRIL 20 MG TABLET PO SCH (21:43)
[2021-12-31] MEDS: ATORVASTATIN CA 80 MG TABLET (FP) PO SCH (21:43)
[2022-01-01] MEDS: INSULIN (LEVEMIR) 100 UNITS/ML UNITS SQ SCH ×2 (06:36→22:09)
[2022-01-01] MEDS: INSULIN (NOVOLOG) ASPART 100 UNITS/ML 10ML VIAL SQ SCH ×3 (06:37→16:39)
[2022-01-01] MEDS: INSULIN SLIDING SCALE (NOVOLOG) 1 VIAL SQ SCH ×4 (06:37→22:09)
[2022-01-01] MEDS: AMINO ACIDS/PROTEIN HYDROLYS 30 ML LIQUID.PKT PO SCH ×2 (08:35→16:39)
[2022-01-01 08:40] LABS: BASO % 0.9 % (0-2.0); EOS % 4.2 % (0-4.5); HEMATOCRIT 32.9 % (32.4-45.2); HEMOGLOBIN 10.4 GM/dL (10.7-15.3); LYMPH % 21.3 % (8-40); MCH 23.1 pg (25.7-33.7); MCHC 31.6 g/dl (32.0-36.0); MEAN PLT VOLUME 8.2 fl (7.5-11.1); MONO % 12.6 % (3.8-10.2); PLATELET COUNT 249 10^3/uL (134-434); RBC 4.51 M/mm3 (3.60-5.2); RDW 19.9 % (11.6-15.6); WHITE BLOOD COUNT 4.9 K/mm3 (4.0-10.0)
[2022-01-01 09:02] LABS: BLOOD UREA NITROGEN 16.7 mg/dL (7-18); CALCIUM 9.6 mg/dL (8.5-10.1)
[2022-01-01 09:05] LABS: CREATININE 0.4 mg/dL (0.55-1.3); PHOSPHOROUS 3.3 mg/dL (2.5-4.9)
[2022-01-01] MEDS: FUROSEMIDE 40 MG TABLET (FP) PO SCH (09:39)
[2022-01-01] MEDS: MULTIVITAMINS (DAILY MVI) TABLET (FP) PO SCH (09:39)
[2022-01-01] MEDS: CLOPIDOGREL BISULFATE 75 MG TABLET (FP) PO SCH (09:39)
[2022-01-01] MEDS: ZINC SULFATE 220 MG CAPSULE (FP) PO SCH (09:39)
[2022-01-01] MEDS: LACTOBACILLUS ACIDOPHILUS 1 TABLET PO SCH (09:40)
[2022-01-01] MEDS: ASCORBIC ACID 500 MG TABLET (FP) PO SCH (09:40)
[2022-01-01] MEDS: ASPIRIN COATED 81 MG TABLET.EC PO SCH (09:40)
[2022-01-01] MEDS: ENOXAPARIN NA (PORCINE) 40 MG/0.4 ML DISP.SYRIN SQ SCH (09:40)
[2022-01-01] MEDS ORDERED: LISINOPRIL 10 MG TABLET PO SCH (21:43)
[2022-01-01] MEDS: ATORVASTATIN CA 80 MG TABLET (FP) PO SCH (22:10)
[2022-01-02] MEDS: INSULIN (LEVEMIR) 100 UNITS/ML UNITS SQ SCH ×2 (06:50→21:42)
[2022-01-02] MEDS: INSULIN (NOVOLOG) ASPART 100 UNITS/ML 10ML VIAL SQ SCH ×3 (06:51→16:54)
[2022-01-02] MEDS: INSULIN SLIDING SCALE (NOVOLOG) 1 VIAL SQ SCH ×4 (06:51→21:41)
[2022-01-02] MEDS: AMINO ACIDS/PROTEIN HYDROLYS 30 ML LIQUID.PKT PO SCH ×2 (08:01→16:45)
[2022-01-02] MEDS: MULTIVITAMINS (DAILY MVI) TABLET (FP) PO SCH (10:32)
[2022-01-02] MEDS: LISINOPRIL 10 MG TABLET PO SCH (10:33)
[2022-01-02] MEDS: ASPIRIN COATED 81 MG TABLET.EC PO SCH (10:33)
[2022-01-02] MEDS: CLOPIDOGREL BISULFATE 75 MG TABLET (FP) PO SCH (10:33)
[2022-01-02] MEDS: LACTOBACILLUS ACIDOPHILUS 1 TABLET PO SCH (10:33)
[2022-01-02] MEDS: ASCORBIC ACID 500 MG TABLET (FP) PO SCH (10:33)
[2022-01-02] MEDS: ZINC SULFATE 220 MG CAPSULE (FP) PO SCH (10:33)
[2022-01-02] MEDS: ENOXAPARIN NA (PORCINE) 40 MG/0.4 ML DISP.SYRIN SQ SCH (11:04)
[2022-01-02] MEDS: ATORVASTATIN CA 80 MG TABLET (FP) PO SCH (21:40)
[2022-01-03] MEDS: INSULIN (NOVOLOG) ASPART 100 UNITS/ML 10ML VIAL SQ SCH ×3 (06:19→17:58)
[2022-01-03] MEDS: INSULIN SLIDING SCALE (NOVOLOG) 1 VIAL SQ SCH ×4 (06:21→21:32)
[2022-01-03] MEDS: INSULIN (LEVEMIR) 100 UNITS/ML UNITS SQ SCH ×2 (06:21→21:30)
[2022-01-03] MEDS: MULTIVITAMINS (DAILY MVI) TABLET (FP) PO SCH (10:34)
[2022-01-03] MEDS: CLOPIDOGREL BISULFATE 75 MG TABLET (FP) PO SCH (10:34)
[2022-01-03] MEDS: ASPIRIN COATED 81 MG TABLET.EC PO SCH (10:35)
[2022-01-03] MEDS: ZINC SULFATE 220 MG CAPSULE (FP) PO SCH (10:35)
[2022-01-03] MEDS: LACTOBACILLUS ACIDOPHILUS 1 TABLET PO SCH (10:35)
[2022-01-03] MEDS: ENOXAPARIN NA (PORCINE) 40 MG/0.4 ML DISP.SYRIN SQ SCH (10:35)
[2022-01-03] MEDS: FUROSEMIDE 40 MG TABLET (FP) PO SCH (10:35)
[2022-01-03] MEDS: LISINOPRIL 10 MG TABLET PO SCH (10:35)
[2022-01-03] MEDS: ASCORBIC ACID 500 MG TABLET (FP) PO SCH (10:35)
[2022-01-03] MEDS: AMINO ACIDS/PROTEIN HYDROLYS 30 ML LIQUID.PKT PO SCH ×2 (10:36→17:55)
[2022-01-03] MEDS: ATORVASTATIN CA 80 MG TABLET (FP) PO SCH (21:33)
[2022-01-04] MEDS: INSULIN (LEVEMIR) 100 UNITS/ML UNITS SQ SCH ×2 (06:51→22:22)
[2022-01-04] MEDS: INSULIN (NOVOLOG) ASPART 100 UNITS/ML 10ML VIAL SQ SCH ×3 (06:52→18:00)
[2022-01-04] MEDS: INSULIN SLIDING SCALE (NOVOLOG) 1 VIAL SQ SCH ×4 (06:53→22:23)
[2022-01-04] MEDS: AMINO ACIDS/PROTEIN HYDROLYS 30 ML LIQUID.PKT PO SCH ×2 (09:03→17:48)
[2022-01-04] MEDS: CLOPIDOGREL BISULFATE 75 MG TABLET (FP) PO SCH (09:03)
[2022-01-04] MEDS: ENOXAPARIN NA (PORCINE) 40 MG/0.4 ML DISP.SYRIN SQ SCH (09:03)
[2022-01-04] MEDS: MULTIVITAMINS (DAILY MVI) TABLET (FP) PO SCH (09:03)
[2022-01-04] MEDS: LACTOBACILLUS ACIDOPHILUS 1 TABLET PO SCH (09:03)
[2022-01-04] MEDS: ZINC SULFATE 220 MG CAPSULE (FP) PO SCH (09:03)
[2022-01-04] MEDS: ASCORBIC ACID 500 MG TABLET (FP) PO SCH (09:03)
[2022-01-04] MEDS: ASPIRIN COATED 81 MG TABLET.EC PO SCH (09:03)
[2022-01-04] MEDS: LISINOPRIL 10 MG TABLET PO SCH (09:03)
[2022-01-04] MEDS: ATORVASTATIN CA 80 MG TABLET (FP) PO SCH (22:23)
[2022-01-04] MEDS: NYSTATIN POWDER 100,000 UNITS/GM - 15 GM TOPICAL POWDER TP SCH (23:08)
[2022-01-05] MEDS: INSULIN (NOVOLOG) ASPART 100 UNITS/ML 10ML VIAL SQ SCH ×3 (06:23→17:54)
[2022-01-05] MEDS: INSULIN (LEVEMIR) 100 UNITS/ML UNITS SQ SCH (06:23)
[2022-01-05] MEDS: INSULIN SLIDING SCALE (NOVOLOG) 1 VIAL SQ SCH ×3 (06:24→17:52)
[2022-01-05] MEDS: LISINOPRIL 10 MG TABLET PO SCH (09:06)
[2022-01-05] MEDS: MULTIVITAMINS (DAILY MVI) TABLET (FP) PO SCH (09:06)
[2022-01-05] MEDS: ASPIRIN COATED 81 MG TABLET.EC PO SCH (09:06)
[2022-01-05] MEDS: ASCORBIC ACID 500 MG TABLET (FP) PO SCH (09:06)
[2022-01-05] MEDS: ZINC SULFATE 220 MG CAPSULE (FP) PO SCH (09:06)
[2022-01-05] MEDS: CLOPIDOGREL BISULFATE 75 MG TABLET (FP) PO SCH (09:06)
[2022-01-05] MEDS: ENOXAPARIN NA (PORCINE) 40 MG/0.4 ML DISP.SYRIN SQ SCH (09:06)
[2022-01-05] MEDS: AMINO ACIDS/PROTEIN HYDROLYS 30 ML LIQUID.PKT PO SCH ×2 (09:06→17:55)
[2022-01-05] MEDS: LACTOBACILLUS ACIDOPHILUS 1 TABLET PO SCH (09:07)
[2022-01-05] MEDS: NYSTATIN POWDER 100,000 UNITS/GM - 15 GM TOPICAL POWDER TP SCH (11:51)
[2022-01-05 18:15] VITALS: BP 122/63; PULSE 80; RESP 18; TEMP 98.5
== END 2022-01-05 19:31 | DRG 617 ==
LOC: JER 12:47 → JERBED 16:54 → OBSVTOIN 21:39 → J5S 12-07 02:54
PROVIDERS: ADMIT Internal Medicine; ATTEND Internal Medicine
PROC: 0Y6H0Z1 Detachment at Right Lower Leg, High, Open Approach (ICD-10-PCS; principal; 2021-12-21 08:00)
PROC: 30233N1 Transfusion of Nonautologous Red Blood Cells into Peripheral Vein, Percutaneous Approach (ICD-10-PCS; 2021-12-23)
DX: E11.69 Type 2 diabetes mellitus with other specified complication (principal); L97.418 Non-pressure chronic ulcer of right heel and midfoot with other specified severity; I50.32 Chronic diastolic (congestive) heart failure; L03.115 Cellulitis of right lower limb; M86.171 Other acute osteomyelitis, right ankle and foot; M84.471A Pathological fracture, right ankle, initial encounter for fracture; E11.621 Type 2 diabetes mellitus with foot ulcer; I25.10 Atherosclerotic heart disease of native coronary artery without angina pectoris; E11.42 Type 2 diabetes mellitus with diabetic polyneuropathy; G47.30 Sleep apnea, unspecified; I11.0 Hypertensive heart disease with heart failure; E11.51 Type 2 diabetes mellitus with diabetic peripheral angiopathy without gangrene; D50.9 Iron deficiency anemia, unspecified; I86.8 Varicose veins of other specified sites; E78.5 Hyperlipidemia, unspecified; D64.9 Anemia, unspecified; F41.8 Other specified anxiety disorders; E87.6 Hypokalemia; E11.65 Type 2 diabetes mellitus with hyperglycemia; Z85.038 Personal history of other malignant neoplasm of large intestine
CPT/HCPCS: 0241U-QW; 11042; 36415; 36430; 71045-TC-FY; 73630-TC-RT-FY; 73700-TC-RT; 73718-TC-RT; 80048; 80053; 82962; 83036; 83735; 84100; 85025; 85027; 85610; 85651; 85730; 86140; 86215; 86850; 86900; 86901; 86922; 87040; 87070; 87205; 88307-TC; 88311-TC; 93005; 93010; 94010; 94760; 97116-GP; 97162-GP; 99285-25; C9803-CS; G0378; G0480; J1644; P9058; U0003; U0005